=== PATIENT | male | born 1965 | race Caucasian/White ===

== ENCOUNTER 2017-10-17 13:18 | Emergency (ER) | payer OTHER ==
[2017-10-17 14:26] VITALS: TEMP 98
[2017-10-17] MEDS ORDERED: hydrALAZINE HCL 20 MG/ML 1 ML VIAL IVP STA ×2 (14:40→16:04)
--- NOTE | 2017-10-17 14:44 | ED ---
General Adult HPI - General Chief complaint: Extremity Problem,Nontraumatic Stated complaint: leg pain Time Seen by Provider: 10/17/17 13:25 Source: patient, RN notes reviewed Mode of arrival: ambulatory Limitations: no limitations - History of Present Illness Initial comments: This a 51-year-old male presents emergency Department complaining that his left second toe has been tingling for about a month. Patient states thought maybe he just slept on it wrong so he didn't come in right away. Patient denies any other symptoms at this time per patient denies any swelling patient denies any trauma patient denies any discoloration. Patient states he does not have a physician does not know if he has diabetes high cholesterol or high blood pressure. Patient's blood pressure was elevated emergency department when I told him that he stated that more recently he has been no she's been having more headaches. Patient does deny any current headache patient denies any weakness that is focal. Patient denies any recent fever chills. Patient denies any chest pain difficulty breathing or shortness of breath lately. Patient is a smoker of cigars daily. - Related Data Previous Rx's Medication Instructions Recorded Lisinopril [Zestril] 10 mg PO DAILY #10 tab 10/17/17 Allergies Allergy/AdvReac Type Severity Reaction Status Date / Time No Known Allergies Allergy Verified 10/17/17 13:29 Review of Systems ROS Statement: Those systems with pertinent positive or pertinent negative responses have been documented in the HPI. ROS Other: All systems not noted in ROS Statement are negative. Past Medical History Past Medical History: No Reported History History of Any Multi-Drug Resistant Organisms: None Reported Past Surgical History: No Surgical Hx Reported Past Psychological History: No Psychological Hx Reported Smoking Status: Current some day smoker Past Alcohol Use History: None Reported Past Drug Use History: None Reported General Exam - General Exam Comments Initial Comments: GENERAL: Patient is well-developed and well-nourished. Patient is nontoxic and well- hydrated and is in no acute distress. ENT: Neck is soft and supple. No significant lymphadenopathy is noted. Oropharynx is clear. Moist mucous membranes. Neck has full range of motion without eliciting any pain. EYES: The sclera were anicteric and conjunctiva were pink and moist. Extraocular movements were intact and pupils were equal round and reactive to light. Eyelids were unremarkable. PULMONARY: Unlabored respirations. Good breath sounds bilaterally. No audible rales rhonchi or wheezing was noted. CARDIOVASCULAR: There is a regular rate and rhythm without any murmurs gallops or rubs. ABDOMEN: Soft and nontender with normal bowel sounds. SKIN: Skin is clear with no lesions or rashes and otherwise unremarkable. NEUROLOGIC: Patient is alert and oriented x3. Cranial nerves II through XII are grossly intact. Motor and sensory are also intact. Normal speech, volume and content. Symmetrical smile. MUSCULOSKELETAL: Normal extremities with adequate strength and full range of motion. Patient has bilateral dorsalis pedis pulses as well as posterior tibial pulses LYMPHATICS: No significant lymphadenopathy is noted PSYCHIATRIC: Normal psychiatric evaluation. Limitations: no limitations Course Vital Signs 10/17/17 10/17/17 10/17/17 13:25 14:24 15:00 Temperature 97.4 F L 98.0 F Pulse Rate 103 H 98 81 Respiratory 18 16 18 Rate Blood Pressure 223/105 194/107 178/95 O2 Sat by Pulse 97 99 Oximetry Medical Decision Making - Medical Decision Making EKG shows normal sinus rhythm at 95 bpm [place] interval is 142 QRS is 92 QT interval 370 QTC is 464. Patient's EKG shows no ST segment elevation or depression or T wave abnormalities are noted. Chest x-ray shows no acute abnormality. Patient blood pressure was mildly elevated so I gave the patient some hydralazine. - Lab Data Result diagrams: 10/17/17 14:35 10/17/17 14:35 Lab Results 10/17/17 10/17/17 10/17/17 Range/Units 14:35 14:35 14:35 WBC 5.2 (3.8-10.6) k/uL RBC 5.65 (4.30-5.90) m/uL Hgb 16.5 (13.0-17.5) gm/dL Hct 47.7 (39.0-53.0) % MCV 84.4 (80.0-100.0) fL MCH 29.2 (25.0-35.0) pg MCHC 34.6 (31.0-37.0) g/dL RDW 12.9 (11.5-15.5) % Plt Count 186 (150-450) k/uL Neutrophils % 66 % Lymphocytes % 25 % Monocytes % 5 % Eosinophils % 2 % Basophils % 1 % Neutrophils # 3.5 (1.3-7.7) k/uL Lymphocytes # 1.3 (1.0-4.8) k/uL Monocytes # 0.3 (0-1.0) k/uL Eosinophils # 0.1 (0-0.7) k/uL Basophils # 0.0 (0-0.2) k/uL PT (9.0-12.0) sec INR (<1.2) APTT (22.0-30.0) sec Sodium 138 (137-145) mmol/L Potassium 4.4 (3.5-5.1) mmol/L Chloride 102 (98-107) mmol/L Carbon Dioxide 25 (22-30) mmol/L Anion Gap 11 mmol/L BUN 15 (9-20) mg/dL Creatinine 0.60 L (0.66-1.25) mg/dL Est GFR (CKD-EPI)AfAm >90 (>60 ml/min/1.73 sqM) Est GFR (CKD-EPI)NonAf >90 (>60 ml/min/1.73 sqM) Glucose 291 H (74-99) mg/dL Calcium 9.3 (8.4-10.2) mg/dL Magnesium 1.7 (1.6-2.3) mg/dL Total Bilirubin 1.2 (0.2-1.3) mg/dL AST 26 (17-59) U/L ALT 29 (21-72) U/L Alkaline Phosphatase 135 H (38-126) U/L Total Creatine Kinase 102 (55-170) U/L CK-MB (CK-2) 1.0 (0.0-2.4) ng/mL CK-MB (CK-2) Rel Index 1.0 Troponin I <0.012 (0.000-0.034) ng/mL Total Protein 7.7 (6.3-8.2) g/dL Albumin 4.3 (3.5-5.0) g/dL 10/17/17 Range/Units 14:35 WBC (3.8-10.6) k/uL RBC (4.30-5.90) m/uL Hgb (13.0-17.5) gm/dL Hct (39.0-53.0) % MCV (80.0-100.0) fL MCH (25.0-35.0) pg MCHC (31.0-37.0) g/dL RDW (11.5-15.5) % Plt Count (150-450) k/uL Neutrophils % % Lymphocytes % % Monocytes % % Eosinophils % % Basophils % % Neutrophils # (1.3-7.7) k/uL Lymphocytes # (1.0-4.8) k/uL Monocytes # (0-1.0) k/uL Eosinophils # (0-0.7) k/uL Basophils # (0-0.2) k/uL PT 9.7 (9.0-12.0) sec INR 1.0 (<1.2) APTT 21.7 L (22.0-30.0) sec Sodium (137-145) mmol/L Potassium (3.5-5.1) mmol/L Chloride (98-107) mmol/L Carbon Dioxide (22-30) mmol/L Anion Gap mmol/L BUN (9-20) mg/dL Creatinine (0.66-1.25) mg/dL Est GFR (CKD-EPI)AfAm (>60 ml/min/1.73 sqM) Est GFR (CKD-EPI)NonAf (>60 ml/min/1.73 sqM) Glucose (74-99) mg/dL Calcium (8.4-10.2) mg/dL Magnesium (1.6-2.3) mg/dL Total Bilirubin (0.2-1.3) mg/dL AST (17-59) U/L ALT (21-72) U/L Alkaline Phosphatase (38-126) U/L Total Creatine Kinase (55-170) U/L CK-MB (CK-2) (0.0-2.4) ng/mL CK-MB (CK-2) Rel Index Troponin I (0.000-0.034) ng/mL Total Protein (6.3-8.2) g/dL Albumin (3.5-5.0) g/dL Disposition Clinical Impression: Hypertension, Paresthesia, Hyperglycemia Disposition: HOME SELF-CARE Condition: Good Instructions: Hypertension (ED), Paresthesia (ED), Hyperglycemia, Non-Diabetic (ED) Prescriptions: Lisinopril [Zestril] 10 mg PO DAILY #10 tab Referrals: None,Stated [Primary Care Provider] - 1-2 days Time of Disposition: 16:02
[2017-10-17 15:13] LABS: Basophils % (A) 1 %; Eosinophils # (A) 0.1 k/uL (0-0.7); Eosinophils % (A) 2 %; HCT 47.7 % (39.0-53.0); HGB 16.5 gm/dL (13.0-17.5); Lymphocytes # (A) 1.3 k/uL (1.0-4.8); Lymphocytes % (A) 25 %; MCH 29.2 pg (25.0-35.0); MCHC 34.6 g/dL (31.0-37.0); MCV 84.4 fL (80.0-100.0); Mean Platelet Volume 7.3; Monocytes # (A) 0.3 k/uL (0-1.0); Monocytes % (A) 5 %; Neutrophils # (A) 3.5 k/uL (1.3-7.7); Neutrophils % (A) 66 %; Platelet Count 186 k/uL (150-450); RBC 5.65 m/uL (4.30-5.90); RDW 12.9 % (11.5-15.5); WBC 5.2 k/uL (3.8-10.6)
[2017-10-17 15:21] LABS: Prothrombin Time 9.7 sec (9.0-12.0)
[2017-10-17 15:24] VITALS: RESP 18
[2017-10-17 15:30] LABS: ALT 29 U/L (21-72); AST 26 U/L (17-59); Albumin 4.3 g/dL (3.5-5.0); Alkaline Phosphatase 135 U/L (38-126); Anion Gap 11 mmol/L; Blood Urea Nitrogen 15 mg/dL (9-20); Calcium 9.3 mg/dL (8.4-10.2); Carbon Dioxide 25 mmol/L (22-30); Chloride 102 mmol/L (98-107); Glucose 291 mg/dL (74-99); Magnesium 1.7 mg/dL (1.6-2.3); Partial Thromboplastin Time 21.7 sec (22.0-30.0); Potassium 4.4 mmol/L (3.5-5.1); Sodium 138 mmol/L (137-145); Total Bilirubin 1.2 mg/dL (0.2-1.3); Total Protein 7.7 g/dL (6.3-8.2)
[2017-10-17 15:33] LABS: Creatine Kinase 102 U/L (55-170)
[2017-10-17 15:46] LABS: Troponin I <0.012 ng/mL (0.000-0.034)
--- NOTE | 2017-10-17 15:47 | XR ---
EXAMINATION TYPE: XR chest 2V DATE OF EXAM: 10/17/2017 COMPARISON: None INDICATION: Left foot numbness x2 weeks. Chest pain. TECHNIQUE: Frontal and lateral views of the chest are obtained. FINDINGS: The heart size is normal. The pulmonary vasculature is normal. The lungs are clear. IMPRESSION: 1. No acute pulmonary process.
[2017-10-17 16:23] VITALS: BP 158/85; PULSE 87
== END 2017-10-17 16:32 | disposition home or self-care (01) ==
LOC: EC 13:18
DX: I10 Essential (primary) hypertension (principal); R20.2 Paresthesia of skin; R73.9 Hyperglycemia, unspecified; M79.675 Pain in left toe(s); F17.210 Nicotine dependence, cigarettes, uncomplicated; Z53.8 Procedure and treatment not carried out for other reasons
CPT/HCPCS: 36415; 93005; 80053; 82550; 82553; 83735; 84484; 85025; 85610; 85730; 71046; 99284; 96374; J0360

== ENCOUNTER → 2018-12-10 | Outpatient (CLI) | payer BC ==
[2018-12-10 16:00] LABS: HCT 38.7 % (39.0-53.0); HGB 12.8 gm/dL (13.0-17.5); MCH 30.1 pg (25.0-35.0); MCHC 33.1 g/dL (31.0-37.0); Mean Platelet Volume 6.5; Platelet Count 212 k/uL (150-450); RBC 4.25 m/uL (4.30-5.90); RDW 13.2 % (11.5-15.5); WBC 6.2 k/uL (3.8-10.6)
[2018-12-10 16:10] LABS: Potassium 4.4 mmol/L (3.5-5.1)
== END ==
LOC: LABPAT 15:19
PROVIDERS: ATTEND Internal Medicine Interventional Cardiology
DX: Z01.812 Encounter for preprocedural laboratory examination (principal); R94.39 Abnormal result of other cardiovascular function study
CPT/HCPCS: 36415; 80051; 82565; 84520; 85027

== ENCOUNTER → 2018-12-12 | Day surgery (SDC) | payer BC ==
[2018-12-10 10:08] VITALS: BMI 38.0
[~2018-12-12] MED LIST: ALPRAZolam 0.25 MG TAB PO PRN; ALPRAZolam 0.5 MG TAB PO PRN; ASPIRIN 325 MG TAB PO STA; ASPIRIN 81 MG PO SCH; ATORVASTATIN 80 MG TAB PO STA; HEPARIN SODIUM 1,000 UN/ML (10ML VL) IV ONE; HEPARIN SODIUM 1,000 UN/ML (10ML VL) ONE; IOPAMIDOL-370 100ML BTL INJ ONE; LIDOCAINE 1% INJ 10MG/ML (20 ML MDV) ONE; LIDOCAINE 1% INJ 10MG/ML (20 ML MDV) SQ ONE; LISINOPRIL 10 MG TAB PO SCH; METOPROLOL TARTRATE 25 MG TAB PO SCH; MIDAZOLAM (PF) 2 MG/2 ML VIAL IV ONE; MULTIVITAMINS, THERA 1 EACH TAB PO SCH; NITROGLYCERIN SL TABS 0.4 MG TAB SUBLINGUAL PRN; PIOGLITAZONE 30 MG TAB PO SCH; RX INFO: IV CONTRAST WAS GIVEN 1 EACH MISC MISCELLANE PRN; SODIUM CHLORIDE 0.9% 1,000 ML IV ONE; SODIUM CHLORIDE 0.9% 1,000 ML IV SCH; SODIUM CHLORIDE 0.9% 1,000 ML in EMPTY BAG 1 BAG IV ONE; VERAPAMIL 2.5 MG/ML 2 ML AMP ONE; VERAPAMIL SYRINGE (5 MG/10 ML) INTRAARTER ONE; amLODIPine 10 MG TAB PO SCH; fentaNYL (PF) 50 MCG/ML 2 ML AMP IV ONE; fentaNYL (PF) 50 MCG/ML 2 ML AMP ONE
[2018-12-12 07:16] VITALS: RESP 18; TEMP 98.7
[2018-12-12 07:25] LABS: Glucose,Whole Blood 113 mg/dL (75-99)
--- NOTE | 2018-12-12 09:45 | CC ---
CARDIAC CATHETERIZATION REPORT Mr. Holloway is a 53-year-old male with known history of hypertension, hyperlipidemia, diabetes mellitus, prior history of smoking, history of cerebrovascular accident, who recently underwent a myocardial perfusion imaging that revealed evidence of inducible ischemia involving the inferoapical wall. In view of that, recommendation made regarding cardiac catheterization. The procedure, as well as the risks and complications were discussed with the patient who is in full understanding and agreement. PROCEDURE: Patient was brought to the labor specialist in a fasting semi-sedated state after receiving fentanyl and Benadryl and achieving moderate conscious sedated state. Using Xylocaine anesthesia and Seldinger technique, a 6-[place]ine[place] sheath was introduced in the right radial artery. Selective right and left coronary angiography were performed using 5- [place] 3.5 bend right and left Iraj catheter. Multiple views of the coronary artery including hemiaxial views were obtained following that 5-[place] tight pigtail catheter was introduced in the left ventricle and a 30 degree METZGER view of the left ventricle was obtained. Following that, catheter and sheaths were removed. Hemostasis was obtained with deployment of a TR band. There was no immediate complication. Patient is returned to his room in stable condition. FINDINGS: LEFT MAIN: This is a large-sized vessel, bifurcating into left circumflex, left anterior descending artery, left main coronary artery has no evidence of obstructive coronary disease. LEFT ANTERIOR DESCENDING ARTERY: This vessel tapers down in the mid, giving rise to a large diagonal branch proximally. The left anterior descending artery as well as branches have no evidence of obstructive coronary artery disease. LEFT CIRCUMFLEX: This is a nondominant large vessel, giving a giving rise to another small obtuse marginal branch. The left circumflex as well as branches have no evidence of obstructive coronary disease. RIGHT CORONARY ARTERY: This is a large dominant vessel, bifurcating distally PDA and posterolateral segment and branches. The PDA reaches toward the inferoapical wall. The right coronary artery and its branches have no evidence of obstructive disease. LEFT VENTRICULOGRAM: Left ventriculogram is performed 30 degree METZGER view and revealed normal left ventricular size and systolic function. Ejection fraction 60%. There was no significant mitral regurgitation. HEMODYNAMICS: There was no gradient across the aortic valve. The ventricular end- diastolic pressure was 20 mmHg. CONCLUSION: 1. Normal coronary arteries. 2. Normal left ventricular size and systolic function. RECOMMENDATION: In view of finding anatomy, I recommend continue medical therapy with aggressive risk modifications being initiated. Those findings and recommendation were discussed with the patient and his family and they are in full understanding and agreement. Duration of procedure is 23 minutes. MMTERESAL / JEFFREYN: [id number] /
[2018-12-12 13:08] VITALS: BP 150/73; PULSE 72
== END | disposition home or self-care (01) ==
LOC: CATHCVL 06:09
PROVIDERS: ATTEND Internal Medicine Interventional Cardiology
DX: R94.39 Abnormal result of other cardiovascular function study (principal); I10 Essential (primary) hypertension; E78.2 Mixed hyperlipidemia; E11.9 Type 2 diabetes mellitus without complications; Z86.73 Personal history of transient ischemic attack (TIA), and cerebral infarction without residual deficits; Z87.891 Personal history of nicotine dependence; Z79.84 Long term (current) use of oral hypoglycemic drugs; Z79.82 Long term (current) use of aspirin; Z79.899 Other long term (current) drug therapy
CPT/HCPCS: 93458; C1894; C1769; J2001; J3010; J1644; Q9967; J2250

== ENCOUNTER 2018-12-23 08:53 | Emergency (ER) | payer BC ==
[2018-12-23 08:59] VITALS: TEMP 97.7
[2018-12-23] MEDS ORDERED: SODIUM CHLORIDE 0.9% 500 ML 500 ML IV STA (09:14)
--- NOTE | 2018-12-23 09:18 | ED ---
General Adult HPI - General Chief complaint: Neuro Symptoms/Deficit Stated complaint: stroke symptoms Time Seen by Provider: 12/23/18 09:00 Source: patient, RN notes reviewed Mode of arrival: ambulatory Limitations: no limitations - History of Present Illness Initial comments: This a 53-year-old male who presents emergency Department complaining that he has tingling in his toes of both of his feet. Patient states he has never had that it is right foot but today he does. Patient states the sensation is similar to that when his foot fall sleep. Patient states the left foot has always had a little bit of that but is also worse today. Patient denies any weakness. Patient states he felt a little unstable when he walks because of this tingling in both feet. Patient denies any upper extremity symptoms. Patient denies any facial droop or slurred speech. Patient denies headache. Patient denies any lightheadedness or dizziness. Patient denies any recent fever chills or cough per patient denies chest pain difficult breathing or shortness of breath. Patient does complain of a little right calf tenderness. - Related Data Home Medications Medication Instructions Recorded Confirmed Aspirin [Adult Low Dose Aspirin EC] 81 mg PO DAILY 12/10/18 12/23/18 Metoprolol Tartrate [Lopressor] 25 mg PO DAILY 12/10/18 12/23/18 Multivitamins, Thera [Multivitamin 1 tab PO DAILY 12/10/18 12/23/18 (formulary)] Pioglitazone [Actos] 30 mg PO DAILY 12/10/18 12/23/18 amLODIPine [Norvasc] 10 mg PO DAILY 12/10/18 12/23/18 metFORMIN HCL [Glucophage] 1,000 mg PO BID-W/MEALS 12/10/18 12/23/18 Atorvastatin [Lipitor] 40 mg PO HS 12/23/18 12/23/18 Lisinopril [Zestril] 20 mg PO DAILY 12/23/18 12/23/18 Allergies Allergy/AdvReac Type Severity Reaction Status Date / Time atorvastatin AdvReac Unknown stomach Verified 12/23/18 11:38 pain Review of Systems ROS Statement: Those systems with pertinent positive or pertinent negative responses have been documented in the HPI. ROS Other: All systems not noted in ROS Statement are negative. 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 History of Any Multi-Drug Resistant Organisms: None Reported Past Surgical History: Heart Catheterization Past Anesthesia/Blood Transfusion Reactions: Motion Sickness Additional Past Anesthesia/Blood Transfusion Reaction / Comment(s): HAS NEVER RECEIVED ANESTHESIA Past Psychological History: No Psychological Hx Reported Smoking Status: Former smoker Past Alcohol Use History: None Reported Past Drug Use History: None Reported - Past Family History Mother Family Medical History: No Reported History General Exam - General Exam Comments Initial Comments: GENERAL: Patient is well-developed and well-nourished. Patient is nontoxic and well- hydrated and is in mild distress. ENT: Neck is soft and supple. No significant lymphadenopathy is noted. Oropharynx is clear. Moist mucous membranes. Neck has full range of motion without eliciting any pain. EYES: The sclera were anicteric and conjunctiva were pink and moist. Extraocular movements were intact and pupils were equal round and reactive to light. Eyelids were unremarkable. PULMONARY: Unlabored respirations. Good breath sounds bilaterally. No audible rales rhonchi or wheezing was noted. CARDIOVASCULAR: There is a regular rate and rhythm without any murmurs gallops or rubs. Femoral pulses are equal bilaterally. Patient has DP pulses bilaterally ABDOMEN: Soft and nontender with normal bowel sounds. SKIN: Skin is clear with no lesions or rashes and otherwise unremarkable. NEUROLOGIC: Patient is alert and oriented x3. Cranial nerves II through XII are grossly intact. Motor and sensory are also intact. Normal speech, volume and content. Symmetrical smile. Patient is able to do heel to lion bilaterally without problem MUSCULOSKELETAL: Normal extremities with adequate strength and full range of motion. No lower extremity swelling or edema. Right calf is mildly tender LYMPHATICS: No significant lymphadenopathy is noted PSYCHIATRIC: Normal psychiatric evaluation. Limitations: no limitations Course Vital Signs 12/23/18 12/23/18 12/23/18 08:56 09:18 10:20 Temperature 97.7 F Pulse Rate 79 82 Respiratory 18 22 18 Rate Blood Pressure 193/98 177/83 164/90 O2 Sat by Pulse 99 98 98 Oximetry 12/23/18 12/23/18 12/23/18 10:40 11:00 11:20 Temperature Pulse Rate 75 69 64 Respiratory 18 18 20 Rate Blood Pressure 160/74 165/79 170/90 O2 Sat by Pulse 98 97 98 Oximetry 12/23/18 12/23/18 11:40 12:00 Temperature Pulse Rate 76 68 Respiratory 20 20 Rate Blood Pressure 146/76 165/81 O2 Sat by Pulse 98 98 Oximetry Medical Decision Making - Medical Decision Making EKG shows a normal sinus rhythm at 72 bpm [place] interval is 138 QRSs 86 QT interval 390 QTC is 427. Patient's EKG shows no ST segment elevation or depression or T wave abnormalities are noted. Ultrasound shows no DVT. CT shows no acute abnormalities. Chest x-ray shows no acute abnormality. Patient states the symptoms are much i mproved he is able to ambulate without problem. Patient still has tingling to both feet at the toes only but states it's much improved. - Lab Data Result diagrams: 12/23/18 09:48 12/23/18 09:48 Lab Results 12/23/18 12/23/18 12/23/18 Range/Units 09:42 09:48 09:48 WBC 6.8 (3.8-10.6) k/uL RBC 4.60 (4.30-5.90) m/uL Hgb 13.4 (13.0-17.5) gm/dL Hct 41.1 (39.0-53.0) % MCV 89.4 (80.0-100.0) fL MCH 29.1 (25.0-35.0) pg MCHC 32.6 (31.0-37.0) g/dL RDW 13.2 (11.5-15.5) % Plt Count 228 (150-450) k/uL Neutrophils % 67 % Lymphocytes % 23 % Monocytes % 4 % Eosinophils % 3 % Basophils % 1 % Neutrophils # 4.5 (1.3-7.7) k/uL Lymphocytes # 1.6 (1.0-4.8) k/uL Monocytes # 0.3 (0-1.0) k/uL Eosinophils # 0.2 (0-0.7) k/uL Basophils # 0.0 (0-0.2) k/uL PT (9.0-12.0) sec INR (<1.2) APTT (22.0-30.0) sec Sodium 140 (137-145) mmol/L Potassium 4.8 (3.5-5.1) mmol/L Chloride 109 H (98-107) mmol/L Carbon Dioxide 25 (22-30) mmol/L Anion Gap 6 mmol/L BUN 21 H (9-20) mg/dL Creatinine 0.96 (0.66-1.25) mg/dL Est GFR (CKD-EPI)AfAm >90 (>60 ml/min/1.73 sqM) Est GFR (CKD-EPI)NonAf 89 (>60 ml/min/1.73 sqM) Glucose 105 H (74-99) mg/dL POC Glucose (mg/dL) 125 H (75-99) mg/dL POC Glu Extension Agent ID Bridget Almodovar Calcium 9.7 (8.4-10.2) mg/dL Total Bilirubin 0.9 (0.2-1.3) mg/dL AST 19 (17-59) U/L ALT 12 L (21-72) U/L Alkaline Phosphatase 95 (38-126) U/L Troponin I (0.000-0.034) ng/mL Total Protein 7.6 (6.3-8.2) g/dL Albumin 4.4 (3.5-5.0) g/dL 12/23/18 12/23/18 Range/Units 09:48 09:48 WBC (3.8-10.6) k/uL RBC (4.30-5.90) m/uL Hgb (13.0-17.5) gm/dL Hct (39.0-53.0) % MCV (80.0-100.0) fL MCH (25.0-35.0) pg MCHC (31.0-37.0) g/dL RDW (11.5-15.5) % Plt Count (150-450) k/uL Neutrophils % % Lymphocytes % % Monocytes % % Eosinophils % % Basophils % % Neutrophils # (1.3-7.7) k/uL Lymphocytes # (1.0-4.8) k/uL Monocytes # (0-1.0) k/uL Eosinophils # (0-0.7) k/uL Basophils # (0-0.2) k/uL PT 9.8 (9.0-12.0) sec INR 0.9 (<1.2) APTT 24.2 (22.0-30.0) sec Sodium (137-145) mmol/L Potassium (3.5-5.1) mmol/L Chloride (98-107) mmol/L Carbon Dioxide (22-30) mmol/L Anion Gap mmol/L BUN (9-20) mg/dL Creatinine (0.66-1.25) mg/dL Est GFR (CKD-EPI)AfAm (>60 ml/min/1.73 sqM) Est GFR (CKD-EPI)NonAf (>60 ml/min/1.73 sqM) Glucose (74-99) mg/dL POC Glucose (mg/dL) (75-99) mg/dL POC Glu Extension Agent ID Calcium (8.4-10.2) mg/dL Total Bilirubin (0.2-1.3) mg/dL AST (17-59) U/L ALT (21-72) U/L Alkaline Phosphatase (38-126) U/L Troponin I <0.012 (0.000-0.034) ng/mL Total Protein (6.3-8.2) g/dL Albumin (3.5-5.0) g/dL Disposition Clinical Impression: Neuropathy Disposition: HOME SELF-CARE Condition: Good Instructions (If sedation given, give patient instructions): Peripheral Neuropathy (ED) Is patient prescribed a controlled substance at d/c from ED?: No Referrals: Alfonso Mcgarry MD [Primary Care Provider] - 1-2 days Time of Disposition: 12:14
[2018-12-23 09:43] LABS: Glucose,Whole Blood 125 mg/dL (75-99)
[2018-12-23 10:08] LABS: Basophils % (A) 1 %; Eosinophils # (A) 0.2 k/uL (0-0.7); Eosinophils % (A) 3 %; HCT 41.1 % (39.0-53.0); HGB 13.4 gm/dL (13.0-17.5); Lymphocytes # (A) 1.6 k/uL (1.0-4.8); Lymphocytes % (A) 23 %; MCH 29.1 pg (25.0-35.0); MCHC 32.6 g/dL (31.0-37.0); MCV 89.4 fL (80.0-100.0); Mean Platelet Volume 6.6; Monocytes # (A) 0.3 k/uL (0-1.0); Monocytes % (A) 4 %; Neutrophils # (A) 4.5 k/uL (1.3-7.7); Neutrophils % (A) 67 %; Platelet Count 228 k/uL (150-450); RDW 13.2 % (11.5-15.5); WBC 6.8 k/uL (3.8-10.6)
[2018-12-23 10:19] LABS: INR 0.9 (<1.2); Partial Thromboplastin Time 24.2 sec (22.0-30.0); Prothrombin Time 9.8 sec (9.0-12.0)
--- NOTE | 2018-12-23 10:19 | CT ---
EXAMINATION TYPE: CT brain wo con DATE OF EXAM: 12/23/2018 COMPARISON: None INDICATION: Neuro deficits DLP: 1071.4 mGycm, Automated exposure control for dose reduction was used. CONTRAST: None CT of the brain is performed utilizing 3 mm thick sections through the posterior fossa and 3 mm thick sections through the remaining calvarium. Study is performed within 24 hours of arrival to the hosp [facility]. No abnormal hyperdensity is present to suggest an acute intracranial hemorrhage. No mass lesion is evident. No acute infarcts are evident. Ventricles and sulci are appropriate for the patient age. There are retention cysts within the maxillary sinuses. Remaining paranasal sinuses and mastoid air c ells are clear. IMPRESSIONS: 1. No acute intracranial process. 2. If additional evaluation is required, consider MRI.
--- NOTE | 2018-12-23 10:19 | XR ---
EXAMINATION TYPE: XR chest 2V DATE OF EXAM: 12/23/2018 COMPARISON: 10/17/2017 INDICATION: Altered mental status cramping and numbness right leg TECHNIQUE: Frontal and lateral views of the chest are obtained. FINDINGS: The heart size is normal. The pulmonary vasculature is normal. The lungs are clear. IMPRESSION: 1. No acute pulmonary process.
[2018-12-23 10:39] LABS: ALT 12 U/L (21-72); AST 19 U/L (17-59); Albumin 4.4 g/dL (3.5-5.0); Alkaline Phosphatase 95 U/L (38-126); Anion Gap 6 mmol/L; Blood Urea Nitrogen 21 mg/dL (9-20); Calcium 9.7 mg/dL (8.4-10.2); Carbon Dioxide 25 mmol/L (22-30); Chloride 109 mmol/L (98-107); Glucose 105 mg/dL (74-99); Potassium 4.8 mmol/L (3.5-5.1); Sodium 140 mmol/L (137-145); Total Bilirubin 0.9 mg/dL (0.2-1.3); Total Protein 7.6 g/dL (6.3-8.2)
--- NOTE | 2018-12-23 11:36 | US ---
EXAMINATION TYPE: US venous doppler duplex LE RT DATE OF EXAM: 12/23/2018 11:08 AM COMPARISON: NONE CLINICAL HISTORY: Pain. Pain right leg x 1 day. Numbness in toes. Pt not on blood thinners. SIDE PERFORMED: Right TECHNIQUE: The lower extremity deep venous system is examined utilizing real time linear array sonog sabi with graded compression, doppler sonography and color-flow sonography. VESSELS IMAGED: External Iliac Vein (EIV) Common Femoral Vein Deep Femoral Vein Greater Saphenous Vein * Femoral Vein Popliteal Vein Small Saphenous Vein * Proximal Calf Veins (* superficial vessels) Right Leg: No evidence of DVT in the right lower extremity. Patient could not tolerate probe pressur e in the distal femoral vein for compression. Extra images taken to show color flow. IMPRESSION: 1. Right lower extremity venous ultrasound negative for deep venous thrombosis.
[2018-12-23 11:39] VITALS: RESP 20
[2018-12-23 12:10] VITALS: BP 165/81; PULSE 68
== END 2018-12-23 12:30 | disposition home or self-care (01) ==
LOC: EC 08:53
DX: E11.40 Type 2 diabetes mellitus with diabetic neuropathy, unspecified (principal); Z86.73 Personal history of transient ischemic attack (TIA), and cerebral infarction without residual deficits; Z87.891 Personal history of nicotine dependence; Z79.82 Long term (current) use of aspirin; Z79.84 Long term (current) use of oral hypoglycemic drugs; Z79.899 Other long term (current) drug therapy; Z88.8 Allergy status to other drugs, medicaments and biological substances; Z95.818 Presence of other cardiac implants and grafts
CPT/HCPCS: 36415; 70450; 71046; 80053; 84484; 85025; 85610; 85730; 93005; 96360; 99284

== ENCOUNTER → 2019-01-06 | Outpatient (CLI) | payer BC ==
[2019-01-06 18:12] LABS: Hemoglobin A1C 5.6 % (4.0-6.0)
== END | disposition home or self-care (01) ==
LOC: LABWHC1 10:24
PROVIDERS: ATTEND Internal Medicine
DX: E11.9 Type 2 diabetes mellitus without complications (principal)
CPT/HCPCS: 36415; 83036

== ENCOUNTER → 2022-04-27 | Outpatient (CLI) | payer OTHER ==
--- NOTE | 2022-04-27 11:22 | XR ---
EXAMINATION TYPE: XR chest 2V DATE OF EXAM: 04/27/2022 10:56 AM COMPARISON: Chest radiographs from 12/23/2018 TECHNIQUE: XR chest 2V Frontal and lateral views of the chest. CLINICAL INDICATION:Male, 56 years old with history of DYSPNEA, UNSPECIFIED; FINDINGS: Lungs/Pleura: There is no evidence of pleural effusion, focal consolidation, or pneumothorax. Pulmonary vascularity: Unremarkable. Heart/mediastinum: Cardiomediastinal silhouette is unremarkable. Musculoskeletal: No acute osseous pathology. IMPRESSION: No acute cardiopulmonary disease/process.
[2022-04-27 14:41] LABS: ALT <5 U/L (10-49); AST 15 U/L (14-35); African American GFR (CKD) 85.3 (60.0-200.0); Albumin 3.8 g/dL (3.8-4.9); Albumin/Globulin Ratio 1.03 (1.60-3.17); Alkaline Phosphatase 156 U/L (41-126); BUN/Creat Ratio 16.91 Ratio (12.00-20.00); Blood Urea Nitrogen 18.6 mg/dL (9.0-27.0); Carbon Dioxide 34.2 mmol/L (20.0-27.5); Chloride 96 mmol/L (96-109); Globulin 3.7 g/dL (1.6-3.3); Glucose 281 mg/dL (70-110); Non-African American GFR(CKD) 73.6 (60.0-200.0); Potassium 5.2 mmol/L (3.5-5.5); Sodium 139 mmol/L (135-145); Total Protein 7.5 g/dL (6.2-8.2)
[2022-04-27 14:42] LABS: Chol/HDL Ratio 4.59 Ratio; LDL Cholesterol,Calculated 85.6 mg/dL (0.0-131.0)
== END | disposition home or self-care (01) ==
LOC: RADXRMAIN 10:30
PROVIDERS: ATTEND Internal Medicine
DX: E11.9 Type 2 diabetes mellitus without complications (principal); I10 Essential (primary) hypertension; E78.5 Hyperlipidemia, unspecified; R06.00 Dyspnea, unspecified; G47.00 Insomnia, unspecified
CPT/HCPCS: 71046; 80053; 80061; 83036; 83880

== ENCOUNTER 2022-06-24 07:29 | Inpatient (IN) | payer MEDICARE, OTHER ==
[2022-06-24] MEDS ORDERED: FUROSEMIDE 10 MG/ML 4 ML VIAL IV STA (07:44)
[2022-06-24] MEDS ORDERED: NITROGLYCERIN OINT 1 INCH/GM PACKET TOPICAL STA (07:45)
--- NOTE | 2022-06-24 07:51 | ED ---
General Adult HPI - General Chief complaint: Shortness of Breath Stated complaint: sob Time Seen by Provider: 06/24/22 07:35 Source: patient, RN notes reviewed, old records reviewed Mode of arrival: wheelchair Limitations: no limitations - History of Present Illness Initial comments: This is a 56-year-old male who presents emergency Department with any shortness of breath per patient states he has a history of smoking quit about a month ago per patient states she also said stroke in the past. Patient states he was recently told he has has congestive heart failure. Patient's on 5 L of oxygen 24 hours a day. Patient also has diabetes. Patient states she's been very compliant with his medications. Patient states over the last 2 weeks since he left the hospital his swelling Reece is worse in his difficulty breathing is gotten worse. Patient states his difficulty breathing is much worse with exertion. Patient denies any chest pain. Patient denies any headache patient denies numbness weakness. Patient denies any lightheadedness or dizziness. Patient denies any abdominal pain. Patient denies nausea vomiting diarrhea. Patient states swelling is legs have gotten considerably worse. - Related Data Home Medications Medication Instructions Recorded Confirmed Aspirin [Adult Low Dose Aspirin EC] 81 mg PO DAILY 12/10/18 12/23/18 Metoprolol Tartrate [Lopressor] 25 mg PO DAILY 12/10/18 12/23/18 Multivitamins, Thera [Multivitamin 1 tab PO DAILY 12/10/18 12/23/18 (formulary)] Pioglitazone [Actos] 30 mg PO DAILY 12/10/18 12/23/18 amLODIPine [Norvasc] 10 mg PO DAILY 12/10/18 12/23/18 metFORMIN HCL [Glucophage] 1,000 mg PO BID-W/MEALS 12/10/18 12/23/18 Atorvastatin [Lipitor] 40 mg PO HS 12/23/18 12/23/18 lisinopriL [Zestril] 20 mg PO DAILY 12/23/18 12/23/18 Allergies Allergy/AdvReac Type Severity Reaction Status Date / Time atorvastatin AdvReac Unknown stomach Verified 12/23/18 11:38 pain Review of Systems ROS Statement: Those systems with pertinent positive or pertinent negative responses have been documented in the HPI. ROS Other: All systems not noted in ROS Statement are negative. 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 History of Any Multi-Drug Resistant Organisms: None Reported Past Surgical History: Heart Catheterization Past Anesthesia/Blood Transfusion Reactions: Motion Sickness Additional Past Anesthesia/Blood Transfusion Reaction / Comment(s): HAS NEVER RECEIVED ANESTHESIA Past Psychological History: No Psychological Hx Reported Smoking Status: Former smoker Past Alcohol Use History: None Reported Past Drug Use History: None Reported - Past Family History Mother Family Medical History: No Reported History General Exam - General Exam Comments Initial Comments: GENERAL: Patient is well-developed and well-nourished. Patient is nontoxic and well- hydrated and is in mild distress. Patient is on 5 L of oxygen and oxygen 88%. ENT: Neck is soft and supple. No significant lymphadenopathy is noted. Oropharynx i s clear. Moist mucous membranes. Neck has full range of motion without eliciting any pain. EYES: The sclera were anicteric and conjunctiva were pink and moist. Extraocular movements were intact and pupils were equal round and reactive to light. Eyelids were unremarkable. PULMONARY: Patient's breath sounds are diminished in the bases and there is some crackles bilateral CARDIOVASCULAR: There is a regular rate and rhythm without any murmurs gallops or rubs. ABDOMEN: Soft and nontender with normal bowel sounds. SKIN: Skin is clear with no lesions or rashes and otherwise unremarkable. NEUROLOGIC: Patient is alert and oriented x3. Cranial nerves II through XII are grossly intact. Motor and sensory are also intact. Normal speech, volume and content. Symmetrical smile. MUSCULOSKELETAL: Normal extremities with adequate strength and full range of motion. Patient has 2+ edema bilaterally up to his distal thigh LYMPHATICS: No significant lymphadenopathy is noted PSYCHIATRIC: Normal psychiatric evaluation. Limitations: no limitations Course Vital Signs 06/24/22 06/24/22 06/24/22 07:31 08:31 09:09 Temperature 97.7 F Pulse Rate 90 89 Respiratory 22 24 20 Rate Blood Pressure 155/71 140/50 O2 Sat by Pulse 86 L 91 L Oximetry 06/24/22 09:16 Temperature Pulse Rate 80 Respiratory Rate Blood Pressure O2 Sat by Pulse Oximetry Medical Decision Making - Medical Decision Making I interpreted EKG EKG shows sinus rhythm at 84 bpm CA interval 260 QRS is 98 QT interval 354 QTC is 396. EKG shows no ST segment elevation or depression. EKG is of poor quality because of patient movement. Chest x-ray is interpreted by me. Chest x-ray shows pulmonary edema. Her patient received Lasix and Nitropaste in the emergency department. Patient remained on 5 L. Patient also received albuterol Atrovent treatment because of his long-standing history of smoking. [facility] I admitted the patient wrote admitting orders I continued Lasix Nitropaste on the floor. I consulted cardiology. Patient was hyperkalemic. I gave the patient an albuterol treatment as well as calcium chloride, D50, insulin, Kayexalate, sodium bicarbonate. - Lab Data Result diagrams: 06/24/22 08:14 06/24/22 08:14 Lab Results 06/24/22 06/24/22 06/24/22 Range/Units 08:14 08:14 08:14 WBC 6.3 (3.8-10.6) k/uL RBC 4.92 (4.30-5.90) m/uL Hgb 13.7 (13.0-17.5) gm/dL Hct 45.2 (39.0-53.0) % MCV 91.9 (80.0-100.0) fL MCH 27.9 (25.0-35.0) pg MCHC 30.3 L (31.0-37.0) g/dL RDW 14.6 (11.5-15.5) % Plt Count 187 (150-450) k/uL MPV 8.5 Neutrophils % 86 % Lymphocytes % 8 % Monocytes % 3 % Eosinophils % 2 % Basophils % 0 % Neutrophils # 5.4 (1.3-7.7) k/uL Lymphocytes # 0.5 L (1.0-4.8) k/uL Monocytes # 0.2 (0-1.0) k/uL Eosinophils # 0.1 (0-0.7) k/uL Basophils # 0.0 (0-0.2) k/uL Hypochromasia Marked PT 10.6 (9.0-12.0) sec INR 1.0 (<1.2) APTT 22.8 (22.0-30.0) sec Sodium 139 (137-145) mmol/L Potassium 6.6 H* (3.5-5.1) mmol/L Chloride 101 (98-107) mmol/L Carbon Dioxide 35 H (22-30) mmol/L Anion Gap 3 mmol/L BUN 35 H (9-20) mg/dL Creatinine 1.34 H (0.66-1.25) mg/dL Est GFR (CKD-EPI)AfAm 68 (>60 ml/min/1.73 sqM) Est GFR (CKD-EPI)NonAf 58 (>60 ml/min/1.73 sqM) Glucose 177 H (74-99) mg/dL Plasma Lactic Acid Saul (0.7-2.0) mmol/L Calcium 8.2 L (8.4-10.2) mg/dL Magnesium 2.2 (1.6-2.3) mg/dL Total Bilirubin 1.1 (0.2-1.3) mg/dL AST 18 (17-59) U/L ALT 17 (4-49) U/L Alkaline Phosphatase 94 (38-126) U/L Troponin I (0.000-0.034) ng/mL NT-Pro-B Natriuret Pep pg/mL Total Protein 6.8 (6.3-8.2) g/dL Albumin 3.7 (3.5-5.0) g/dL 06/24/22 06/24/22 06/24/22 Range/Units 08:14 08:14 08:14 WBC (3.8-10.6) k/uL RBC (4.30-5.90) m/uL Hgb (13.0-17.5) gm/dL Hct (39.0-53.0) % MCV (80.0-100.0) fL MCH (25.0-35.0) pg MCHC (31.0-37.0) g/dL RDW (11.5-15.5) % Plt Count (150-450) k/uL MPV Neutrophils % % Lymphocytes % % Monocytes % % Eosinophils % % Basophils % % Neutrophils # (1.3-7.7) k/uL Lymphocytes # (1.0-4.8) k/uL Monocytes # (0-1.0) k/uL Eosinophils # (0-0.7) k/uL Basophils # (0-0.2) k/uL Hypochromasia PT (9.0-12.0) sec INR (<1.2) APTT (22.0-30.0) sec Sodium (137-145) mmol/L Potassium (3.5-5.1) mmol/L Chloride (98-107) mmol/L Carbon Dioxide (22-30) mmol/L Anion Gap mmol/L BUN (9-20) mg/dL Creatinine (0.66-1.25) mg/dL Est GFR (CKD-EPI)AfAm (>60 ml/min/1.73 sqM) Est GFR (CKD-EPI)NonAf (>60 ml/min/1.73 sqM) Glucose (74-99) mg/dL Plasma Lactic Acid Saul 0.9 (0.7-2.0) mmol/L Calcium (8.4-10.2) mg/dL Magnesium (1.6-2.3) mg/dL Total Bilirubin (0.2-1.3) mg/dL AST (17-59) U/L ALT (4-49) U/L Alkaline Phosphatase (38-126) U/L Troponin I <0.012 (0.000-0.034) ng/mL NT-Pro-B Natriuret Pep 1620 pg/mL Total Protein (6.3-8.2) g/dL Albumin (3.5-5.0) g/dL Critical Care Time Critical Care Time: Yes Total Critical Care Time: 35 Disposition Clinical Impression: Acute pulmonary edema, Hyperkalemia Disposition: ADMITTED IP TO THIS [facility] Time of Disposition: 08:37
--- NOTE | 2022-06-24 08:29 | XR ---
EXAMINATION TYPE: XR chest 2V DATE OF EXAM: 06/24/2022 COMPARISON: 04/27/2022 HISTORY: 56-year-old male difficulty breathing TECHNIQUE: AP and lateral views FINDINGS: Heart mild to moderately enlarged. New perihilar and interstitial opacities, more patchy and confluen t now in the right upper lobe. There may be a trace effusion on the lateral view. IMPRESSION: 1. Cardiomegaly with new interstitial and perihilar opacities. Correlate for CHF with pulmonary vascu lar congestion. 2. Opacity is more confluent at the right upper lobe. This could represent pneumonia versus developin g pulmonary edema.
[2022-06-24 08:30] LABS: Basophils % (A) 0 %; Eosinophils # (A) 0.1 k/uL (0-0.7); Eosinophils % (A) 2 %; HCT 45.2 % (39.0-53.0); HGB 13.7 gm/dL (13.0-17.5); Hypochromasia Marked; Lymphocytes # (A) 0.5 k/uL (1.0-4.8); Lymphocytes % (A) 8 %; MCH 27.9 pg (25.0-35.0); MCHC 30.3 g/dL (31.0-37.0); MCV 91.9 fL (80.0-100.0); Mean Platelet Volume 8.5; Monocytes # (A) 0.2 k/uL (0-1.0); Monocytes % (A) 3 %; Neutrophils # (A) 5.4 k/uL (1.3-7.7); Neutrophils % (A) 86 %; Platelet Count 187 k/uL (150-450); RBC 4.92 m/uL (4.30-5.90); RDW 14.6 % (11.5-15.5); WBC 6.3 k/uL (3.8-10.6)
[2022-06-24] MEDS ORDERED: IPRATROPIUM-ALBUTEROL 3 ML NEB INHALATION STA (08:37)
[2022-06-24 08:43] LABS: Partial Thromboplastin Time 22.8 sec (22.0-30.0); Prothrombin Time 10.6 sec (9.0-12.0)
[2022-06-24 08:45] LABS: Albumin 3.7 g/dL (3.5-5.0); Calcium 8.2 mg/dL (8.4-10.2); Magnesium 2.2 mg/dL (1.6-2.3); Total Bilirubin 1.1 mg/dL (0.2-1.3); Total Protein 6.8 g/dL (6.3-8.2)
[2022-06-24 09:02] LABS: Potassium 6.6 mmol/L (3.5-5.1)
[2022-06-24] MEDS ORDERED: SODIUM BICARB 8.4% 50 ML SYR (1 MEQ/ML) IV STA (09:10)
[2022-06-24] MEDS ORDERED: INSULIN REGULAR 100 UNIT/ML VIAL (IV) IV ONE (09:17)
[2022-06-24] MEDS ORDERED: DEXTROSE 50% SYRINGE 50 ML IVP STA (09:17)
[2022-06-24] MEDS ORDERED: CALCIUM CHLORIDE 100 MG/ML 10 ML SYRINGE IVP STA (09:17)
[2022-06-24] MEDS ORDERED: SODIUM POLYSTYRENE SULFONATE 15 GM/60 ML BOTTLE PO STA (09:18)
[2022-06-24 11:20] LABS: Glucose,Whole Blood 126 mg/dL (70-110)
[2022-06-24 13:33] VITALS: BMI 39.1
[2022-06-24] MEDS: NITROGLYCERIN OINT 1 INCH/GM PACKET TOPICAL SCH ×3 (13:39→20:50)
[2022-06-24] MEDS ORDERED: ALBUTEROL NEBULIZED 2.5 MG/3 ML INHALATION PRN (14:32)
[2022-06-24] MEDS ORDERED: SODIUM ZIRCONIUM CYCLOSILICATE 10 GM PACKET PO ONE (15:30)
[2022-06-24 16:41] LABS: Glucose,Whole Blood 115 mg/dL (70-110)
[2022-06-24] MEDS: FUROSEMIDE 10 MG/ML 4 ML VIAL IV SCH (17:23)
[2022-06-24 20:28] LABS: Glucose,Whole Blood 131 mg/dL (70-110)
[2022-06-24] MEDS: traZODone HCL 50 MG TAB PO SCH (20:48)
[2022-06-24] MEDS: HEPARIN SODIUM,PORCINE/PF 5,000 UNIT/0.5 ML SYRINGE SQ SCH (20:48)
[2022-06-24] MEDS: AMITRIPTYLINE HCL 10 MG TAB PO SCH (20:48)
[2022-06-24] MEDS: PREGABALIN 75 MG CAP PO SCH (20:49)
[2022-06-25] MEDS: FUROSEMIDE 10 MG/ML 4 ML VIAL IV SCH ×3 (01:03→16:06)
--- NOTE | 2022-06-25 03:01 | HP ---
HISTORY AND PHYSICAL CHIEF COMPLAINT: Shortness of breath. HISTORY OF PRESENT ILLNESS: This is a 56-year-old gentleman with a past medical history of multiple medical issues including CHF, CVA, TIA, diabetes mellitus type 2, was complaining of increasing shortness of breath. The patient had some difficulty in breathing and was found to have CHF acute exacerbation, admitted for further evaluation and treatment. There is no history of any fever, rigors, or chills. The patient is started on IV Lasix and cardiology evaluation in progress also. The patient's potassium was also found to be extremely elevated at 6.6 with a creatinine of 1.34, and nephrology is also being consulted. PAST MEDICAL HISTORY: History of CHF, CVA, diabetes mellitus. The rest of the history and whole chart is reviewed. HOME MEDICATIONS: Reviewed, include Desyrel. Doses and rest of medications reviewed. ALLERGIES: Atorvastatin. FAMILY HISTORY: No history of heart disease or strokes in the family. SOCIAL HISTORY: Previous history of smoking. REVIEW OF SYSTEMS: A 14-point review of systems is negative as mentioned earlier. PHYSICAL EXAMINATION: VITAL SIGNS: Pulse is 77, blood pressure n, respirations 18. HEENT: Conjunctivae normal. NECK: No jugular venous distention. CARDIOVASCULAR: S1, S2 muffled. RESPIRATIONS: At the bases. A few scattered rhonchi. ABDOMEN: Soft, obese. LEGS: No edema. NERVOUS SYSTEM: No focal deficit. SKIN: No ulcers. JOINTS: No active deforming arthropathy. LABORATORY DATA: CBC within normal limits. Potassium . Rest of the labs and chest x-ray personally reviewed by me. ASSESSMENT: 1. Congestive heart failure acute exacerbation with probably acute on chronic diastolic dysfunction. 2. Hyperkalemia. 3. History of cerebrovascular accident, transient ischemic attack. 4. Diabetes mellitus, type 2. 5. History of motion sickness. RECOMMENDATION: This is a 56-year-old gentleman, who presented with multiple complex medical issues. We will monitor the patient closely. We will continue the current medications, continue symptomatic treatment. Resume the home medications. Avoid SANJIV inhibitors and ARBs. Monitor potassium closely. Nephrology consultation. Other than that, low potassium diet. Cardiology consultation. We will hold the lisinopril for now. See orders for further details. Monitor fluid/electrolyte balance closely. Fluid restriction. Prognosis is extremely guarded because of multiple complex medical issues including renal failure, heart failure, and severe hyperkalemia. Further recommendations to follow. MMODL / IJN: [id number] / MTDD
[2022-06-25 05:47] LABS: Glucose,Whole Blood 151 mg/dL (70-110)
[2022-06-25] MEDS: PANTOPRAZOLE 40 MG TABLET PO SCH (06:35)
[2022-06-25] MEDS: IPRATROPIUM 0.5 MG/2.5 ML NEBU INHALATION SCH ×4 (07:31→19:23)
[2022-06-25] MEDS: SYMBICORT 80-4.5 MCG INHALER INHALATION SCH ×2 (07:31→19:24)
[2022-06-25] MEDS: ASPIRIN 81 MG PO SCH (08:48)
[2022-06-25] MEDS: amLODIPine 10 MG TAB PO SCH (08:48)
[2022-06-25] MEDS: HEPARIN SODIUM,PORCINE/PF 5,000 UNIT/0.5 ML SYRINGE SQ SCH ×2 (08:48→22:20)
[2022-06-25] MEDS: PREGABALIN 75 MG CAP PO SCH ×2 (08:48→22:20)
[2022-06-25] MEDS: NITROGLYCERIN OINT 1 INCH/GM PACKET TOPICAL SCH ×2 (08:49→12:54)
[2022-06-25] MEDS ORDERED: METOPROLOL SUCCINATE (ER) 25 MG TAB.ER.24H PO SCH (09:00)
--- NOTE | 2022-06-25 09:52 | P.NPCON ---
History of Present Illness - Reason for Consult acute renal failure - History of Present Illness Reason for consultation: Acute kidney injury History of present illness: Patient is a 56-year-old male seen in renal consultation for acute kidney injury. Patient's baseline creatinine is near 1 and was elevated at 1.34 yesterday. Patient came to the hospital due to shortness of breath. Patient states shortness of breath has been worsening over the last 2 weeks but he was delaying coming to the hospital. Patient states he was recently admitted at another facility with similar complaints. He is currently on IV Lasix. States shortness of breath is improving. He also complains of swelling in lower extremities which she states is not improving with diuresis. He has long- standing history of diabetes. Denies use of nonsteroidals. Denies chest pain. No vomiting or diarrhea. No fever or chills. Oral intake is good. Denies family history of renal disease. No hematuria. Denies history of coronary artery disease. Potassium was also high at 6.6 on admission and was down to 5.1 as of last night. He was taking lisinopril outpatient which is currently held. Vital signs are stable. General: Awake. No acute distress. HEENT: Head exam is unremarkable. LUNGS: Breath sounds decreased. On nasal cannula. HEART: Rate and Rhythm are regular. ABDOMEN: Soft, obese. EXTREMITITES: 1+ edema. Chronic changes noted. Past Medical History Past Medical History: Heart Failure, CVA/TIA, Diabetes Mellitus Additional Past Medical History / Comment(s): HX CVA MAY 2019 AFFECTED LEFT SIDE - STILL HAS LEFT TOES NUMB AND LEFT HAND WEAKNESS History of Any Multi-Drug Resistant Organisms: None Reported Past Surgical History: Heart Catheterization Past Anesthesia/Blood Transfusion Reactions: Motion Sickness Additional Past Anesthesia/Blood Transfusion Reaction / Comment(s): HAS NEVER RECEIVED ANESTHESIA Past Psychological History: No Psychological Hx Reported Smoking Status: Former smoker Past Alcohol Use History: None Reported Additional Past Alcohol Use History / Comment(s): QUIT SMOKING MAY 2019, SMOKED 2 CIGARS DAILY FOR 2 YEARS. Past Drug Use History: None Reported - Past Family History Mother Family Medical History: No Reported History Medications and Allergies Home Medications Medication Instructions Recorded Confirmed Type Aspirin [Adult Low Dose Aspirin EC] 81 mg PO DAILY 12/10/18 06/24/22 History Pioglitazone [Actos] 30 mg PO DAILY 12/10/18 06/24/22 History amLODIPine [Norvasc] 10 mg PO DAILY 12/10/18 06/24/22 History metFORMIN HCL [Glucophage] 1,000 mg PO BID-W/MEALS 12/10/18 06/24/22 History lisinopriL [Zestril] 20 mg PO DAILY 12/23/18 06/24/22 History Albuterol Inhaler [Ventolin Hfa 2 puff INHALATION RT-QID PRN 06/24/22 06/24/22 History Inhaler] Amitriptyline HCl [Elavil] 10 mg PO HS 06/24/22 06/24/22 History Fluticasone/Umeclidin/Vilanter 1 puff INHALATION RT-DAILY 06/24/22 06/24/22 History [Trelegy Ellipta 100-62.5-25] Furosemide [Lasix] 20 mg PO DAILY 06/24/22 06/24/22 History Metoprolol Succinate (ER) [Toprol 25 mg PO DAILY 06/24/22 06/24/22 History Xl] Pregabalin [Lyrica] 150 mg PO BID 06/24/22 06/24/22 History traZODone HCL [Desyrel] 25 - 50 mg PO HS 06/24/22 06/24/22 History Allergies Allergy/AdvReac Type Severity Reaction Status Date / Time atorvastatin AdvReac Unknown stomach Verified 06/24/22 10:44 pain Physical Exam Vitals: Vital Signs Temp Pulse Pulse Resp BP BP Pulse Ox 06/25/22 07:42 78 06/25/22 07:41 98.2 F 76 18 147/74 89 L 06/25/22 07:32 76 06/25/22 01:27 98.2 F 84 19 147/77 92 L 06/24/22 20:00 89 06/24/22 19:32 97.9 F 87 19 158/65 91 L 06/24/22 16:35 92 L 06/24/22 14:33 98.0 F 78 18 110/67 92 L 06/24/22 11:05 97.8 F 72 18 112/68 93 L 06/24/22 10:30 77 20 128/78 91 L 06/24/22 10:00 77 18 135/62 93 L Intake and Output 06/24/22 06/25/22 06/25/22 22:59 06:59 14:59 Intake Total 550 Output Total 1800 3200 Balance -1250 -3200 Intake: Oral 550 Output: Urine 1800 3200 Stool 0 Other: Voiding Method Urinal Weight 154.9 kg Results - Lab Results Most recent lab results Calcium 8.2 mg/dL (8.4-10.2) L 06/24/22 08:14 Magnesium 2.2 mg/dL (1.6-2.3) 06/24/22 08:14 06/24/22 08:14 06/24/22 19:55 Assessment and Plan Plan: Assessment: 1. Acute kidney injury mostly prerenal secondary to cardiorenal syndrome. Creatinine 1.34 yesterday. 2. Volume overload. 3. Hyperkalemia secondary to acute kidney injury and lisinopril. Improved with medical management. 4. Diabetes mellitus. Plan: Maintain IV Lasix. Low-salt diet. Continue to hold lisinopril. Avoid nephrotoxins. Consider echocardiogram. Cardiology has been consulted. Check urinalysis. Check renal ultrasound. Morning labs pending. Thank you for the consultation. I will continue to follow the patient with you during his hospital stay.
[2022-06-25 11:34] LABS: Glucose,Whole Blood 163 mg/dL (70-110)
[2022-06-25 11:56] LABS: Appearance,Urine Clear (Clear); Bilirubin,Urine Negative (Negative); Blood,Urine Negative (Negative); Color,Urine Colorless; Glucose,Urine (UA) Negative (Negative); Ketones,Urine Negative (Negative); Leukocyte Esterase,Urine Negative (Negative); Nitrite,Urine Negative (Negative); PH, Urine 7.5 (5.0-8.0); Protein,Urine Negative (Negative); Specific Gravity,Urine 1.006 (1.001-1.035); Urobilinogen,Urine <2.0 mg/dL (<2.0)
--- NOTE | 2022-06-25 12:19 | US ---
EXAMINATION TYPE: US kidneys/renal and bladder DATE OF EXAM: 06/25/2022 COMPARISON: NONE CLINICAL HISTORY: 56 year-old male acute kidney injury, morbidly obese TECHNIQUE: Multiple sonographic images of the kidneys and bladder are obtained. FINDINGS: EXAM MEASUREMENTS: Right Kidney: 10.2 x 5.2 x 5.8 cm Left Kidney: 10.5 x 4.8 x 6.5 cm Right Kidney: No hydronephrosis or masses seen Left Kidney: No hydronephrosis or masses seen Bladder: wnl IMPRESSION: No hydronephrosis on either side.
[2022-06-25 12:26] LABS: African American GFR (CKD) 58.6 (60.0-200.0); Anion Gap 9.8 mmol/L (10.00-18.00); BUN/Creat Ratio 18.87 Ratio (12.00-20.00); Blood Urea Nitrogen 28.3 mg/dL (9.0-27.0); Carbon Dioxide 37.2 mmol/L (20.0-27.5); Non-African American GFR(CKD) 50.6 (60.0-200.0); Potassium 5.1 mmol/L (3.5-5.5)
[2022-06-25] MEDS ORDERED: Magnesium Replacement Protocol 1 EACH MISC MISCELLANE PRN (13:11)
[2022-06-25 14:01] LABS: Basophils # (A) 0.03 X 10*3/uL (0.00-0.10); Basophils % (A) 0.7 %; Eosinophils # (A) 0.16 X 10*3/uL (0.04-0.35); Eosinophils % (A) 3.5 %; HCT 44.1 % (39.6-50.0); HGB 12.9 g/dL (13.0-17.0); Immature Grans, Automated 0.2 %; Lymphocytes # (A) 0.57 X 10*3/uL (0.90-5.00); Lymphocytes % (A) 12.5 %; MCH 26.3 pg (27.0-32.0); MCHC 29.3 g/dL (32.0-37.0); MCV 89.8 fL (80.0-97.0); Mean Platelet Volume 10.5 fL (9.5-12.2); Monocytes # (A) 0.35 X 10*3/uL (0.20-1.00); Monocytes % (A) 7.7 %; NRBC Per 100 WBC 0 /100 WBCS (0.0-0.0); Neutrophils # (A) 3.44 X 10*3/uL (1.80-7.70); Neutrophils % (A) 75.4 %; Platelet Count 171 X 10*3/uL (140-440); RBC 4.91 X 10*6/uL (4.40-5.60); RBC Morphology NORMAL; RDW 14.9 % (11.5-14.5); WBC 4.56 X 10*3/uL (4.50-10.00)
--- NOTE | 2022-06-25 14:54 | P.CRDCN ---
History of Present Illness Consult date: 06/25/22 History of present illness: Patient has a known history of congestive heart failure, CVA/TIA, diabetes type 2. Patient was recently seen at [facility] a few weeks ago and seen a assurance senior manager insurance there. At that time he was told he had congestive heart failure. Patient came to the ER complaining of increased shortness of breath and lower extremity edema up into his abdomen. He reports he had a reaction to a medication a few months ago and since then he has stopped taking all medications including the meds he was discharged home on from [facility]. We have been cons ult to see him for acute on chronic congestive heart failure exacerbation. His troponins are negative 3 BNP is 1620 he is sinus rhythm on the monitor. His chest x-ray showed cardiomegaly with no interstitial opacities correlated for CHF with pulmonary vascular congestion. He is on Lasix 40 mg IV every 8 hours. Initially his potassium was 6.6 it is down to 5.1. Patient had a beat run of V. tach last night. Will increase his metoprolol to 50 mg daily. Patient had a heart cath 2018 which showed normal coronary arteries. Will restart lisinopril at 10 mg daily and discontinue Nitropaste. Will obtain a 2-D echocardiogram Review of Systems REVIEW OF SYSTEMS At the time of my exam: CONSTITUTIONAL: Denies fever or chills. EYES: Negative for vision changes ENT: Negative for hearing loss CARDIOVASCULAR: Denies chest pain, shortness of breath, diaphoresis, orthopnea, PND or palpitations. VASCULAR: edema RESPIRATORY: Denies cough. Complains of shortness of breath GASTROINTESTINAL: Denies abdominal pain, diarrhea, constipation, nausea or vomiting. MUSCULOSKELETAL: Denies myalgias. NEUROLOGIC: Denies numbness, tingling, headache or weakness. ENDOCRINE: Denies fatigue, weight change, polydipsia or polyurina. GENITOURINARY: Denies burning, hematuria or urgency with micturation. HEMATOLOGIC: Denies history of anemia or bleeding. DERMATOLOGY: Denies rash or skin sores PSYCH: Negative for depression or hallucinations. Past Medical History Past Medical History: Heart Failure, CVA/TIA, Diabetes Mellitus Additional Past Medical History / Comment(s): HX CVA MAY 2019 AFFECTED LEFT SIDE - STILL HAS LEFT TOES NUMB AND LEFT HAND WEAKNESS History of Any Multi-Drug Resistant Organisms: None Reported Past Surgical History: Heart Catheterization Past Anesthesia/Blood Transfusion Reactions: Motion Sickness Additional Past Anesthesia/Blood Transfusion Reaction / Comment(s): HAS NEVER RECEIVED ANESTHESIA Past Psychological History: No Psychological Hx Reported Smoking Status: Former smoker Past Alcohol Use History: None Reported Additional Past Alcohol Use History / Comment(s): QUIT SMOKING MAY 2019, SMOKED 2 CIGARS DAILY FOR 2 YEARS. Past Drug Use History: None Reported - Past Family History Mother Family Medical History: No Reported History Medications and Allergies Home Medications Medication Instructions Recorded Confirmed Type Aspirin [Adult Low Dose Aspirin EC] 81 mg PO DAILY 12/10/18 06/24/22 History Pioglitazone [Actos] 30 mg PO DAILY 12/10/18 06/24/22 History amLODIPine [Norvasc] 10 mg PO DAILY 12/10/18 06/24/22 History metFORMIN HCL [Glucophage] 1,000 mg PO BID-W/MEALS 12/10/18 06/24/22 History lisinopriL [Zestril] 20 mg PO DAILY 12/23/18 06/24/22 History Albuterol Inhaler [Ventolin Hfa 2 puff INHALATION RT-QID PRN 06/24/22 06/24/22 History Inhaler] Amitriptyline HCl [Elavil] 10 mg PO HS 06/24/22 06/24/22 History Fluticasone/Umeclidin/Vilanter 1 puff INHALATION RT-DAILY 06/24/22 06/24/22 History [Trelegy Ellipta 100-62.5-25] Furosemide [Lasix] 20 mg PO DAILY 06/24/22 06/24/22 History Metoprolol Succinate (ER) [Toprol 25 mg PO DAILY 06/24/22 06/24/22 History Xl] Pregabalin [Lyrica] 150 mg PO BID 06/24/22 06/24/22 History traZODone HCL [Desyrel] 25 - 50 mg PO HS 06/24/22 06/24/22 History Allergies Allergy/AdvReac Type Severity Reaction Status Date / Time atorvastatin AdvReac Unknown stomach Verified 06/24/22 10:44 pain Physical Exam Vitals: Vital Signs Temp Pulse Pulse Resp BP Pulse Ox 06/25/22 11:47 72 06/25/22 11:38 72 06/25/22 07:42 78 06/25/22 07:41 98.2 F 76 18 147/74 89 L 06/25/22 07:32 76 06/25/22 01:27 98.2 F 84 19 147/77 92 L 06/24/22 20:00 89 06/24/22 19:32 97.9 F 87 19 158/65 91 L 06/24/22 16:35 92 L Intake and Output 06/24/22 06/25/22 06/25/22 22:59 06:59 14:59 Intake Total 550 Output Total 1800 3200 Balance -1250 -3200 Intake: Oral 550 Output: Urine 1800 3200 Stool 0 Other: Voiding Method Urinal Weight 154.9 kg General: The patient is awake and alert, in no distress, and does not appear acutely ill. Skin: Skin is warm and dry and no rashes or lesions are noted. Eye: Pupils are equal, round and reactive to light, extra-ocular movements are intact; there is normal conjunctiva bilaterally. Ears, nose, mouth and throat: There are moist mucous membranes and no oral lesions. Neck: The neck is supple, there is no tenderness or JVD. Cardiovascular: There is irregular regular rate and rhythm. No murmur, rub or gallop is appreciated. Respiratory: Lungs are clear to auscultation, respirations are non-labored, breath sounds are equal. Gastrointestinal: Soft, non-distended, non-tender abdomen without masses or organomegaly noted. There is no rebound or guarding present. Bowel sounds are unremarkable. Back: There is no tenderness to palpation in the midline. There is no obvious d eformity. Musculoskeletal: Normal ROM, no tenderness, There is no pedal edema. There is no calf tenderness or swelling. Extremities: Mild bilateral pitting edema Vascular: Femoral pulse is normal. Posterior tibial pulses are normal .Dorsalis pedis is palpable. Neurological: CN II-XII intact. There are no obvious motor or sensory deficits. Speech is normal. Psychiatric: Cooperative, appropriate mood & affect, normal judgment Results 06/25/22 07:19 06/25/22 07:19 CBC 06/25/22 Range/Units 07:19 WBC 4.56 (4.50-10.00) X 10*3/uL RBC 4.91 (4.40-5.60) X 10*6/uL Hgb 12.9 L (13.0-17.0) g/dL Hct 44.1 (39.6-50.0) % Plt Count 171 (140-440) X 10*3/uL Comprehensive Metabolic Panel 06/24/22 06/25/22 Range/Units 19:55 07:19 Sodium 139 (135-145) mmol/L Potassium 5.1 5.1 (3.5-5.1) mmol/L Chloride 92 L (96-109) mmol/L Carbon Dioxide 37.2 H (20.0-27.5) mmol/L BUN 28.3 H (9.0-27.0) mg/dL Creatinine 1.5 (0.6-1.5) mg/dL Glucose 124 H (70-110) mg/dL Calcium 9.0 (8.7-10.3) mg/dL Current Medications Generic Name Dose Route Start Last Admin Trade Name Freq PRN Reason Stop Dose Admin Albuterol Sulfate 2.5 mg 06/24/22 14:32 Albuterol Nebulized 2.5 Mg/3 Ml INHALATION RT-QID PRN Shortness Of Breath Amitriptyline HCl 10 mg 06/24/22 21:00 06/24/22 20:48 Amitriptyline Hcl 10 Mg Tab PO 10 mg HS DOMI Administration Amlodipine Besylate 10 mg 06/25/22 09:00 06/25/22 08:48 Amlodipine 10 Mg Tab PO 10 mg DAILY DOMI Administration Aspirin 81 mg 06/25/22 09:00 06/25/22 08:48 Aspirin 81 Mg PO 81 mg DAILY DOMI Administration Budesonide/Formoterol Fumarate 2 puff 06/25/22 08:00 06/25/22 07:31 Symbicort 80-4.5 Mcg Inhaler INHALATION 2 puff RT-BID DOMI Administration Furosemide 40 mg 06/24/22 17:00 06/25/22 08:49 Furosemide 10 Mg/Ml 4 Ml Vial IV 40 mg Q8H DOMI Administration Heparin Sodium (Porcine) 5,000 unit 06/24/22 21:00 06/25/22 08:48 Heparin Sodium,Porcine/Pf 5,000 Unit/0.5 Ml Syringe SQ 5,000 unit Q12HR DOMI Administration Ipratropium Morrill 0.5 mg 06/25/22 08:00 06/25/22 11:38 Ipratropium 0.5 Mg/2.5 Ml Nebu INHALATION 0.5 mg RT-QID DOMI Administration Metoprolol Succinate 25 mg 06/25/22 09:00 06/25/22 08:48 Metoprolol Succinate (Er) 25 Mg Tab.Er.24h PO 25 mg DAILY DOMI Administration Miscellaneous Information 1 each 06/25/22 13:11 Magnesium Replacement Protocol 1 Each Misc MISCELLANE DAILY PRN Per Protocol Protocol Nitroglycerin 1 inch 06/24/22 13:00 06/25/22 12:54 Nitroglycerin Oint 1 Inch/Gm Packet TOPICAL 1 inch QID DOMI Administration Pantoprazole Sodium 40 mg 06/25/22 07:30 06/25/22 06:35 Pantoprazole 40 Mg Tablet PO 40 mg [id number] DOMI Administration Pregabalin 150 mg 06/24/22 21:00 06/25/22 08:48 Pregabalin 75 Mg Cap PO 150 mg BID DOMI Administration Trazodone HCl 25 mg 06/24/22 21:00 06/24/22 20:48 Trazodone Hcl 50 Mg Tab PO 25 mg HS DOMI Administration Intake and Output 06/24/22 06/25/22 06/25/22 22:59 06:59 14:59 Intake Total 550 Output Total 1800 3200 Balance -1250 -3200 Intake: Oral 550 Output: Urine 1800 3200 Stool 0 Other: Voiding Method Urinal Weight 154.9 kg 06/25/22 07:19 06/25/22 07:19 Assessment and Plan Assessment: Acute on chronic systolic congestive heart failure Plan: Increase metoprolol to 50 mg daily Discontinue Nitropaste Start lisinopril 10 mg daily Follow kidney function Obtain a 2-D echocardiogram Further recommendations based on clinical course The above impression and plan of care have been discussed and directed by the signing physician. Aleksandra Armstrong, nurse practitioner, acting as scribe for signing physician.
[2022-06-25] MEDS ORDERED: METOPROLOL SUCCINATE (ER) 25 MG TAB.ER.24H PO STA (14:56)
[2022-06-25] MEDS: lisinopriL 10 MG TAB PO SCH (16:05)
[2022-06-25 16:55] LABS: Glucose,Whole Blood 124 mg/dL (70-110)
[2022-06-25 20:44] LABS: Glucose,Whole Blood 125 mg/dL (70-110)
[2022-06-25] MEDS: traZODone HCL 50 MG TAB PO SCH (22:20)
[2022-06-25] MEDS: AMITRIPTYLINE HCL 10 MG TAB PO SCH (22:20)
[2022-06-26] MEDS: FUROSEMIDE 10 MG/ML 4 ML VIAL IV SCH ×3 (00:45→16:09)
--- NOTE | 2022-06-26 04:08 | PN ---
PROGRESS NOTE DATE OF SERVICE: 06/25/2022 SUBJECTIVE: This 56-year-old gentleman, who was admitted with CHF acute exacerbation, is still on IV Lasix. The patient is feeling much better. No chest pain. No palpitations. No fever. PHYSICAL EXAMINATION: VITAL SIGNS: On exam, pulse 76, blood pressure 147/74, respirations 18. CHEST: A few scattered rhonchi. CARDIOVASCULAR: S1 and S2. ABDOMEN: Soft. LEGS: Edema present. LABORATORY DATA: Noted. ASSESSMENT: 1. Congestive heart failure acute exacerbation with acute on chronic diastolic dysfunction, on IV Lasix. 2. Hyperkalemia. 3. History of cerebrovascular accident, transient ischemic attack. 4. Diabetes mellitus, type 2. 5. History of motion sickness. RECOMMENDATIONS: Recommended to continue current management. Continue with IV Lasix. Restrict fluids. Increase ambulation. Possible discharge in the next 24 to 48 hours. MMODL / IJN: [id number] /
[2022-06-26 06:12] LABS: Glucose,Whole Blood 141 mg/dL (70-110)
[2022-06-26] MEDS: PANTOPRAZOLE 40 MG TABLET PO SCH (06:55)
[2022-06-26] MEDS: IPRATROPIUM 0.5 MG/2.5 ML NEBU INHALATION SCH ×4 (07:20→19:46)
[2022-06-26] MEDS: SYMBICORT 80-4.5 MCG INHALER INHALATION SCH ×2 (07:20→19:45)
--- NOTE | 2022-06-26 08:47 | XR ---
EXAMINATION TYPE: XR chest 1V portable DATE OF EXAM: 06/26/2022 6:27 AM COMPARISON: Chest radiograph from two days prior. TECHNIQUE: XR chest 1V portable Portable AP radiograph of the chest. CLINICAL INDICATION:Male, 56 years old with history of chf; FINDINGS: Lungs/Pleura: Improved aeration of the lungs with persistent scattered airspace opacities. There is n o evidence of pleural effusion, focal consolidation, or pneumothorax. Pulmonary vascularity: Unremarkable. Heart/mediastinum: Cardiomediastinal silhouette is unremarkable. Musculoskeletal: No acute osseous pathology. IMPRESSION: Improved aeration of the lungs on today's exam with persistent subtle scattered airspace opacities co uld represent resolving pulmonary vascular congestion.
[2022-06-26 09:00] LABS: Basophils # (A) 0.03 X 10*3/uL (0.00-0.10); Basophils % (A) 0.7 %; Eosinophils # (A) 0.14 X 10*3/uL (0.04-0.35); Eosinophils % (A) 3.1 %; HCT 46.3 % (39.6-50.0); HGB 13.4 g/dL (13.0-17.0); Immature Grans, Automated 0.2 %; Lymphocytes # (A) 0.62 X 10*3/uL (0.90-5.00); Lymphocytes % (A) 13.9 %; MCH 26.3 pg (27.0-32.0); MCHC 28.9 g/dL (32.0-37.0); Mean Platelet Volume 10.5 fL (9.5-12.2); Monocytes # (A) 0.33 X 10*3/uL (0.20-1.00); Monocytes % (A) 7.4 %; NRBC Per 100 WBC 0 /100 WBCS (0.0-0.0); Neutrophils # (A) 3.33 X 10*3/uL (1.80-7.70); Neutrophils % (A) 74.7 %; Platelet Count 162 X 10*3/uL (140-440); RBC 5.09 X 10*6/uL (4.40-5.60); RDW 14.6 % (11.5-14.5); WBC 4.46 X 10*3/uL (4.50-10.00)
[2022-06-26 09:20] LABS: African American GFR (CKD) 58.6 (60.0-200.0); Albumin 3.7 g/dL (3.8-4.9); Albumin/Globulin Ratio 1.12 (1.60-3.17); Anion Gap 12.7 mmol/L (10.00-18.00); BUN/Creat Ratio 18.53 Ratio (12.00-20.00); Blood Urea Nitrogen 27.8 mg/dL (9.0-27.0); Calcium 8.8 mg/dL (8.7-10.3); Carbon Dioxide 37.3 mmol/L (20.0-27.5); Globulin 3.3 g/dL (1.6-3.3); Magnesium 1.9 mg/dL (1.5-2.4); Non-African American GFR(CKD) 50.6 (60.0-200.0); Potassium 4.6 mmol/L (3.5-5.5); Total Bilirubin 1.2 mg/dL (0.30-1.20)
[2022-06-26] MEDS: PREGABALIN 75 MG CAP PO SCH ×2 (09:55→21:47)
[2022-06-26] MEDS: amLODIPine 10 MG TAB PO SCH (09:55)
[2022-06-26] MEDS: HEPARIN SODIUM,PORCINE/PF 5,000 UNIT/0.5 ML SYRINGE SQ SCH ×2 (09:55→21:47)
[2022-06-26] MEDS: ASPIRIN 81 MG PO SCH (09:55)
[2022-06-26] MEDS: lisinopriL 10 MG TAB PO SCH (09:55)
[2022-06-26] MEDS: METOPROLOL SUCCINATE (ER) 50 MG TAB.ER.24H PO SCH (09:55)
--- NOTE | 2022-06-26 09:59 | P.PN ---
Subjective Patient is seen in follow-up for acute kidney injury. Renal function stable. On IV Lasix. Good urine output. No chest pain or shortness of breath. On 5 L nasal cannula. Blood pressure stable this morning. Vital signs are stable. General: Awake. No acute distress. HEENT: Head exam is unremarkable. On nasal cannula. LUNGS: Breath sounds decreased. HEART: Rate and Rhythm are regular. ABDOMEN: Soft, obese. EXTREMITITES: 1+ edema. Objective - Vital Signs Vital signs: Vital Signs Temp 97.7 F 06/26/22 07:23 Pulse 74 06/26/22 07:23 Resp 17 06/26/22 07:23 BP 129/74 06/26/22 07:23 Pulse Ox 91 L 06/26/22 07:23 FiO2 Intake & Output 06/25/22 06/26/22 06/26/22 18:59 06:59 18:59 Weight 151.2 kg Other: Voiding Method Toilet Urinal # Voids 2 2 - Labs CBC & Chem 7: 06/26/22 05:56 06/26/22 05:56 Labs: Abnormal Lab Results - Last 24 Hours (Table) 06/25/22 06/25/22 06/25/22 Range/Units 07:19 07:19 11:33 WBC (4.50-10.00) X 10*3/uL Hgb 12.9 L (13.0-17.0) g/dL MCH 26.3 L (27.0-32.0) pg MCHC 29.3 L (32.0-37.0) g/dL RDW 14.9 H (11.5-14.5) % Lymphocytes # 0.57 L (0.90-5.00) X 10*3/uL Chloride 92 L (96-109) mmol/L Carbon Dioxide 37.2 H (20.0-27.5) mmol/L Anion Gap 9.80 L (10.00-18.00) mmol/L BUN 28.3 H (9.0-27.0) mg/dL Est GFR (CKD-EPI)AfAm 58.6 L (60.0-200.0) Est GFR (CKD-EPI)NonAf 50.6 L (60.0-200.0) Glucose 124 H (70-110) mg/dL POC Glucose (mg/dL) 163 H (70-110) mg/dL AST (14-35) U/L Albumin (3.8-4.9) g/dL Albumin/Globulin Ratio (1.60-3.17) g/dL 06/25/22 06/25/22 06/26/22 Range/Units 16:54 20:42 05:56 WBC (4.50-10.00) X 10*3/uL Hgb (13.0-17.0) g/dL MCH (27.0-32.0) pg MCHC (32.0-37.0) g/dL RDW (11.5-14.5) % Lymphocytes # (0.90-5.00) X 10*3/uL Chloride 93 L (96-109) mmol/L Carbon Dioxide 37.3 H (20.0-27.5) mmol/L Anion Gap (10.00-18.00) mmol/L BUN 27.8 H (9.0-27.0) mg/dL Est GFR (CKD-EPI)AfAm 58.6 L (60.0-200.0) Est GFR (CKD-EPI)NonAf 50.6 L (60.0-200.0) Glucose 150 H (70-110) mg/dL POC Glucose (mg/dL) 124 H 125 H (70-110) mg/dL AST 11 L (14-35) U/L Albumin 3.7 L (3.8-4.9) g/dL Albumin/Globulin Ratio 1.12 L (1.60-3.17) g/dL 06/26/22 06/26/22 Range/Units 05:56 06:10 WBC 4.46 L (4.50-10.00) X 10*3/uL Hgb (13.0-17.0) g/dL MCH 26.3 L (27.0-32.0) pg MCHC 28.9 L (32.0-37.0) g/dL RDW 14.6 H (11.5-14.5) % Lymphocytes # 0.62 L (0.90-5.00) X 10*3/uL Chloride (96-109) mmol/L Carbon Dioxide (20.0-27.5) mmol/L Anion Gap (10.00-18.00) mmol/L BUN (9.0-27.0) mg/dL Est GFR (CKD-EPI)AfAm (60.0-200.0) Est GFR (CKD-EPI)NonAf (60.0-200.0) Glucose (70-110) mg/dL POC Glucose (mg/dL) 141 H (70-110) mg/dL AST (14-35) U/L Albumin (3.8-4.9) g/dL Albumin/Globulin Ratio (1.60-3.17) g/dL Microbiology - Last 24 Hours (Table) 06/24/22 08:14 Blood Culture - Preliminary Blood No Growth after 24 hours 06/24/22 08:14 Blood Culture - Preliminary Blood No Growth after 24 hours Assessment and Plan Plan: Assessment: 1. Acute kidney injury mostly prerenal secondary to cardiorenal syndrome. Creatinine stable at 1.5. No hydronephrosis noted on kidney ultrasound. UA benign. 2. Volume overload. Improving with diuresis. 3. Hyperkalemia secondary to acute kidney injury and lisinopril. Improved with medical management. 4. Diabetes mellitus. Plan: Maintain IV Lasix. Low-salt diet. 1500 mL fluid restriction. Avoid nephrotoxins. Follow-up echocardiogram. Continue to monitor renal function and urine output.
[2022-06-26 11:24] LABS: Glucose,Whole Blood 199 mg/dL (70-110)
--- NOTE | 2022-06-26 13:04 | P.PN ---
Subjective Progress Note Date: 06/26/22 HISTORY OF PRESENT ILLNESS: This is a 56-year-old male who is admitted to the hospital secondary to congestive heart failure. Patient examined this morning at the bedside. Patient denies chest pain or pressure. He continues to report shortness of breath. He remains on IV Lasix. He reports improvement in his lower extremity edema. Vital signs are stable. PHYSICAL EXAM: VITAL SIGNS: Reviewed. GENERAL: Well-developed in no acute distress. NECK: Supple. No JVD or thyromegaly LUNGS: Respirations even and unlabored. Lungs essentially clear to auscultation bilaterally, diminished. HEART: Regular rate and rhythm. S1 and S2 heard. EXTREMITIES: Normal range of motion. No clubbing or cyanosis. Peripheral pulses intact. Bilateral lower extremity edema extending up into the thighs ASSESSMENT: Shortness of breath Acute on chronic heart failure, type unknown, echo pending Acute hypoxic respiratory failure requiring supplemental oxygen History of CVA in 2019 Diabetes Hypertension Normal coronary arteries, per cardiac catheterization in 2019 Hyperkalemia, resolved Acute kidney injury PLAN: 2-D echo ordered. Await results Continue IV Lasix Daily weights, accurate I&O, and monitoring of kidney function Discontinue Norvasc Continue additional cardiac medications Further recommendations pending patient's course Nurse practitioner note has been reviewed by physician. Signing provider agrees with the documented findings, assessment, and plan of care. Objective - Vital Signs Vital signs: Vital Signs Temp 97.7 F 06/26/22 07:23 Pulse 80 06/26/22 12:51 Resp 17 06/26/22 07:23 BP 129/74 06/26/22 07:23 Pulse Ox 91 L 06/26/22 07:23 FiO2 Intake & Output 06/25/22 06/26/22 06/26/22 18:59 06:59 18:59 Weight 151.2 kg Other: Voiding Method Toilet Urinal # Voids 2 2 - Labs CBC & Chem 7: 06/26/22 05:56 06/26/22 05:56 Labs: Abnormal Lab Results - Last 24 Hours (Table) 06/25/22 06/25/22 06/25/22 Range/Units 07:19 16:54 20:42 WBC (4.50-10.00) X 10*3/uL Hgb 12.9 L (13.0-17.0) g/dL MCH 26.3 L (27.0-32.0) pg MCHC 29.3 L (32.0-37.0) g/dL RDW 14.9 H (11.5-14.5) % Lymphocytes # 0.57 L (0.90-5.00) X 10*3/uL Chloride (96-109) mmol/L Carbon Dioxide (20.0-27.5) mmol/L BUN (9.0-27.0) mg/dL Est GFR (CKD-EPI)AfAm (60.0-200.0) Est GFR (CKD-EPI)NonAf (60.0-200.0) Glucose (70-110) mg/dL POC Glucose (mg/dL) 124 H 125 H (70-110) mg/dL AST (14-35) U/L Albumin (3.8-4.9) g/dL Albumin/Globulin Ratio (1.60-3.17) g/dL 06/26/22 06/26/22 06/26/22 Range/Units 05:56 05:56 06:10 WBC 4.46 L (4.50-10.00) X 10*3/uL Hgb (13.0-17.0) g/dL MCH 26.3 L (27.0-32.0) pg MCHC 28.9 L (32.0-37.0) g/dL RDW 14.6 H (11.5-14.5) % Lymphocytes # 0.62 L (0.90-5.00) X 10*3/uL Chloride 93 L (96-109) mmol/L Carbon Dioxide 37.3 H (20.0-27.5) mmol/L BUN 27.8 H (9.0-27.0) mg/dL Est GFR (CKD-EPI)AfAm 58.6 L (60.0-200.0) Est GFR (CKD-EPI)NonAf 50.6 L (60.0-200.0) Glucose 150 H (70-110) mg/dL POC Glucose (mg/dL) 141 H (70-110) mg/dL AST 11 L (14-35) U/L Albumin 3.7 L (3.8-4.9) g/dL Albumin/Globulin Ratio 1.12 L (1.60-3.17) g/dL 11/21/22 Range/Units 11:22 WBC (4.50-10.00) X 10*3/uL Hgb (13.0-17.0) g/dL MCH (27.0-32.0) pg MCHC (32.0-37.0) g/dL RDW (11.5-14.5) % Lymphocytes # (0.90-5.00) X 10*3/uL Chloride (96-109) mmol/L Carbon Dioxide (20.0-27.5) mmol/L BUN (9.0-27.0) mg/dL Est GFR (CKD-EPI)AfAm (60.0-200.0) Est GFR (CKD-EPI)NonAf (60.0-200.0) Glucose (70-110) mg/dL POC Glucose (mg/dL) 199 H (70-110) mg/dL AST (14-35) U/L Albumin (3.8-4.9) g/dL Albumin/Globulin Ratio (1.60-3.17) g/dL Microbiology - Last 24 Hours (Table) 06/24/22 08:14 Blood Culture - Preliminary Blood No Growth after 48 hours 06/24/22 08:14 Blood Culture - Preliminary Blood No Growth after 48 hours
[2022-06-26 16:42] LABS: Glucose,Whole Blood 130 mg/dL (70-110)
--- NOTE | 2022-06-26 16:49 | CA ---
Transthoracic Echo Report Name: Edgar Holloway Age: 56 Gender: M : 1965 Exam Date: 06/26/2022 10:52 Exam Location: [facility] [facility] Ht (in): 65 Wt (lb): 335 Ordering Physician: Aleksandra Armstrong Attending/Referring Phys: Tiger Machine Operator Alexandra Andujar RDCS Procedure CPT: Indications: chf Cardiac Hx: Technical Quality: Very technically difficult study Contrast 1: Lumason Total Dose (mL): 4 Contrast 2: Total Dose (mL): MEASUREMENTS (Male / Female) Normal Values FINDINGS Left Ventricle Normal left ventricular wall motion. Left ventricular ejection fraction is estimated at 50-55%. Right Ventricle Normal right ventricular size and function. Right Atrium Normal right atrial size. Left Atrium Left atrium not well visualized. Mitral Valve Structurally normal mitral valve. Mild mitral regurgitation. Aortic Valve Aortic valve sclerosis. Tricuspid Valve Structurally normal tricuspid valve. Pulmonic Valve Pulmonic valve not well visualized. Pericardium Echo free space anterior to the right ventricle likely represents a fat pad. Aorta CONCLUSIONS Left ventricular ejection fraction 50-55% Mild mitral regurgitation No aortic stenosis No pericardial effusion Previewed by: Dr. Fermin Xavier DO (Electronically Signed) Final Date: 26 June 2022 16:48
[2022-06-26 20:07] LABS: Glucose,Whole Blood 187 mg/dL (70-110)
[2022-06-26] MEDS: traZODone HCL 50 MG TAB PO SCH (21:46)
[2022-06-26] MEDS: AMITRIPTYLINE HCL 10 MG TAB PO SCH (21:47)
[2022-06-27] MEDS: FUROSEMIDE 10 MG/ML 4 ML VIAL IV SCH ×3 (00:48→17:59)
--- NOTE | 2022-06-27 03:59 | PN ---
PROGRESS NOTE DATE OF SERVICE: 06/26/2022 SUBJECTIVE: This 56-year-old gentleman with CHF acute exacerbation, still on IV diuretics, patient is feeling better. Chest x-ray also showed some improvement. No chest pain, no palpitation. PHYSICAL EXAMINATION: VITAL SIGNS: Pulse 74, blood pressure 129/74, respirations 17. CHEST: A few scattered rhonchi, no crackles. CARDIOVASCULAR: S1, S2. ABDOMEN: Soft. LEGS: Bilateral leg edema. LABORATORY DATA: Reviewed. ASSESSMENT: 1. Congestive heart failure acute exacerbation with acute on chronic diastolic dysfunction, on IV Lasix. 2. Hyperkalemia. 3. History of cerebrovascular accident, transient ischemic attack. 4. Diabetes mellitus type 2. 5. History of motion sickness. RECOMMENDATIONS: Recommended to continue current management, continue symptomatic treatment. Continue with IV diuretics. Monitor closely. Fluid restriction 1200 mL for 24 hours. Closely follow with multiple consultants. Prognosis guarded. Further recommendations to follow. MMTERESAL / JEFFREYN: [id number] /
[2022-06-27 06:26] LABS: Glucose,Whole Blood 152 mg/dL (70-110)
[2022-06-27] MEDS: PANTOPRAZOLE 40 MG TABLET PO SCH (07:04)
[2022-06-27] MEDS: SYMBICORT 80-4.5 MCG INHALER INHALATION SCH ×2 (07:25→20:39)
[2022-06-27] MEDS: IPRATROPIUM 0.5 MG/2.5 ML NEBU INHALATION SCH ×4 (07:25→20:39)
[2022-06-27 07:44] LABS: African American GFR (CKD) 66 (>60 ml/min/1.73 sqM); Anion Gap 6 mmol/L; Blood Urea Nitrogen 32 mg/dL (9-20); Calcium 7.7 mg/dL (8.4-10.2); Chloride 94 mmol/L (98-107); Glucose 134 mg/dL (74-99); Magnesium 1.9 mg/dL (1.6-2.3); Non-African American GFR(CKD) 57 (>60 ml/min/1.73 sqM); Potassium 3.8 mmol/L (3.5-5.1); Sodium 142 mmol/L (137-145)
[2022-06-27 08:00] LABS: Carbon Dioxide 42 mmol/L (22-30)
[2022-06-27] MEDS: METOPROLOL SUCCINATE (ER) 50 MG TAB.ER.24H PO SCH (08:07)
[2022-06-27] MEDS: HEPARIN SODIUM,PORCINE/PF 5,000 UNIT/0.5 ML SYRINGE SQ SCH ×2 (08:07→21:42)
[2022-06-27] MEDS: ASPIRIN 81 MG PO SCH (08:07)
[2022-06-27] MEDS: lisinopriL 20 MG TAB PO SCH (08:07)
[2022-06-27] MEDS: PREGABALIN 75 MG CAP PO SCH ×2 (08:07→21:41)
--- NOTE | 2022-06-27 10:54 | P.PN ---
Subjective Progress Note Date: 06/27/22 HISTORY OF PRESENT ILLNESS: This is a 56-year-old male who is admitted to the hospital secondary to congestive heart failure. Patient examined this morning at the bedside. Patient denies chest pain or pressure. He continues to report shortness of breath. He remains on IV Lasix. He reports improvement in his lower extremity edema. Vital signs are stable. 06/27/2022 Patient examined this morning at the bedside. Patient denies chest pain or pressure. He reports improvement in his shortness of breath. Patient remains on IV Lasix. BUN 32. Creatinine 1.36. Carbon dioxide 42. Patient does not have accurate intake and output documented. Patient remains on 15 L high flow nasal cannula. 2-D echo completed revealing ejection fraction 50-55% with mild mitral regurgitation. PHYSICAL EXAM: VITAL SIGNS: Reviewed. GENERAL: Well-developed in no acute distress. NECK: Supple. No JVD or thyromegaly LUNGS: Respirations even and unlabored. Lungs essentially clear to auscultation bilaterally, diminished. HEART: Regular rate and rhythm. S1 and S2 heard. EXTREMITIES: Normal range of motion. No clubbing or cyanosis. Peripheral pulses intact. Bilateral lower extremity edema extending up into the thighs ASSESSMENT: Shortness of breath Acute on chronic heart failure with preserved ejection fraction Acute hypoxic respiratory failure requiring supplemental oxygen History of CVA in 2019 Diabetes Hypertension Normal coronary arteries, per cardiac catheterization in 2019 Hyperkalemia, resolved Acute kidney injury PLAN: Continue IV Lasix Add Diamox Daily weights, accurate I&O, and monitoring of kidney function Continue additional cardiac medications Further recommendations pending patient's course Nurse practitioner note has been reviewed by physician. Signing provider agrees with the documented findings, assessment, and plan of care. Objective - Vital Signs Vital signs: Vital Signs Temp 97.4 F L 06/27/22 07:19 Pulse 84 06/27/22 07:38 Resp 18 06/27/22 07:19 BP 108/77 06/27/22 07:19 Pulse Ox 90 L 06/27/22 07:19 FiO2 Intake & Output 06/26/22 06/27/22 06/27/22 18:59 06:59 18:59 Intake Total 120 Balance 120 Weight 149.8 kg Intake: Oral 120 Other: Voiding Method Toilet Urinal - Labs CBC & Chem 7: 06/26/22 05:56 06/27/22 06:31 Labs: Abnormal Lab Results - Last 24 Hours (Table) 06/26/22 06/26/22 06/26/22 Range/Units : 16:41 20:05 Chloride (98-107) mmol/L Carbon Dioxide (22-30) mmol/L BUN (9-20) mg/dL Creatinine (0.66-1.25) mg/dL Glucose (74-99) mg/dL POC Glucose (mg/dL) 199 H 130 H 187 H (70-110) mg/dL Calcium (8.4-10.2) mg/dL 06/27/22 06/27/22 Range/Units 06:25 06:31 Chloride 94 L (98-107) mmol/L Carbon Dioxide 42 H* (22-30) mmol/L BUN 32 H (9-20) mg/dL Creatinine 1.36 H (0.66-1.25) mg/dL Glucose 134 H (74-99) mg/dL POC Glucose (mg/dL) 152 H (70-110) mg/dL Calcium 7.7 L (8.4-10.2) mg/dL Microbiology - Last 24 Hours (Table) 06/24/22 08:14 Blood Culture - Preliminary Blood No Growth after 72 hours 06/24/22 08:14 Blood Culture - Preliminary Blood No Growth after 72 hours
[2022-06-27] MEDS: acetaZOLAMIDE 250 MG TAB PO SCH ×2 (10:55→21:42)
--- NOTE | 2022-06-27 11:17 | P.PN ---
Subjective Patient is seen in follow-up for acute kidney injury. Renal function a little better. On IV Lasix. Good urine output. No chest pain or shortness of breath. On high flow nasal cannula. Blood pressure stable this morning. Vital signs are stable. General: Awake. No acute distress. HEENT: Head exam is unremarkable. On nasal cannula. LUNGS: Breath sounds decreased. HEART: Rate and Rhythm are regular. ABDOMEN: Soft, obese. EXTREMITITES: 1+ edema. Objective - Vital Signs Vital signs: Vital Signs Temp 97.4 F L 06/27/22 07:19 Pulse 80 06/27/22 11:05 Resp 18 06/27/22 07:19 BP 108/77 06/27/22 07:19 Pulse Ox 90 L 06/27/22 07:19 FiO2 Intake & Output 06/26/22 06/27/22 06/27/22 18:59 06:59 18:59 Intake Total 120 Balance 120 Weight 149.8 kg Intake: Oral 120 Other: Voiding Method Toilet Urinal - Labs CBC & Chem 7: 06/26/22 05:56 06/27/22 06:31 Labs: Abnormal Lab Results - Last 24 Hours (Table) 06/26/22 06/26/22 06/26/22 Range/Units 11: 16:41 20:05 Chloride (98-107) mmol/L Carbon Dioxide (22-30) mmol/L BUN (9-20) mg/dL Creatinine (0.66-1.25) mg/dL Glucose (74-99) mg/dL POC Glucose (mg/dL) 199 H 130 H 187 H (70-110) mg/dL Calcium (8.4-10.2) mg/dL 06/27/22 06/27/22 Range/Units 06:25 06:31 Chloride 94 L (98-107) mmol/L Carbon Dioxide 42 H* (22-30) mmol/L BUN 32 H (9-20) mg/dL Creatinine 1.36 H (0.66-1.25) mg/dL Glucose 134 H (74-99) mg/dL POC Glucose (mg/dL) 152 H (70-110) mg/dL Calcium 7.7 L (8.4-10.2) mg/dL Microbiology - Last 24 Hours (Table) 06/24/22 08:14 Blood Culture - Preliminary Blood No Growth after 72 hours 06/24/22 08:14 Blood Culture - Preliminary Blood No Growth after 72 hours Assessment and Plan Plan: Assessment: 1. Acute kidney injury mostly prerenal secondary to cardiorenal syndrome. Renal function a little better - creatinine 1.36. No hydronephrosis noted on kidney ultrasound. UA benign. 2. Volume overload. Improving with diuresis. 3. Hyperkalemia secondary to acute kidney injury and lisinopril. Improved with medical management. 4. Diabetes mellitus. 5. Metabolic alkalosis from diuresis. 6. Acute on chronic diastolic CHF. Plan: Maintain IV Lasix. Diamox added by cardiology. Low-salt diet. 1500 mL fluid restriction. Avoid nephrotoxins. Continue to monitor renal function and urine output.
[2022-06-27 11:27] LABS: Glucose,Whole Blood 208 mg/dL (70-110)
[2022-06-27 13:54] LABS: ABG Base Excess 16.8 mmol/L; ABG HCO3 39 mmol/L (21-25); ABG PCO2 44 mmHg (35-45); ABG PO2 134 mmHg (83-108); ABG TCO2 40 mmol/L (19-24); Allen Test Performed? Yes
[2022-06-27 13:59] LABS: ABG PH 7.56 (7.35-7.45)
[2022-06-27 16:36] LABS: Glucose,Whole Blood 160 mg/dL (70-110)
--- NOTE | 2022-06-27 16:41 | CT ---
EXAMINATION TYPE: CT chest wo con CT DLP: 1150.6 mGycm, Automated exposure control for dose reduction was used. DATE OF EXAM: 06/27/2022 4:26 PM COMPARISON: Chest radiograph 06/26/2022. CLINICAL INDICATION:Male, 56 years old with history of Hypoxemia; TECHNIQUE: Multiple axial images were obtained through the chest without IV contrast. Lack of IV or o ral contrast limits evaluation of solid and hollow organ viscera. FINDINGS: LUNGS/ PLEURA: Bibasilar patchy linear consolidation with air bronchograms. Punctate calcified granul remi within the left lower lobe. No pneumothorax or effusion. AIRWAY: Patent and unremarkable.. HEART: The heart is mildly increased in size.. No pericardial effusion. Trace coronary arterial calci fications. MEDIASTINUM: Mildly enlarged subcarinal lymph node measuring up to 1.4 cm short axis. VASCULATURE: No aortic aneurysm. MUSCULOSKELETAL: No acute osseous abnormalities. No aggressive osseous lesion. Mild multilevel degene rative changes of the visualized spine with disc space narrowing, endplate sclerosis, vacuum disease, and anterior osteophyte formation. SOFT TISSUES/LYMPH NODES: Unremarkable. LOWER NECK: No significant findings. UPPER ABDOMEN: No significant findings. IMPRESSION: 1. Patchy bibasilar linear consolidation with air bronchograms suggests atelectasis however superimpo sed infectious process is not excluded. 2. Mildly enlarged subcarinal lymph node, likely reactive to #1. 3. Mild cardiomegaly.
--- NOTE | 2022-06-27 16:58 | P.CNPUL ---
History of Present Illness Consult date: 06/27/22 Reason for consult: dyspnea, hypoxemia History of present illness: This is a 56-year-old male patient, morbidly obese, who was recently admitted to [facility] for shortness of breath and he was discharged on oxygen at 3 L/m nasal cannula. The patient was admitted to our hospital because of worsening shortness of breath and increased in edema in lower extremities and abdominal distention and swelling. He was diagnosed having CHF with preserved LV function and the patient was given diuretics. During the course of his illness, creatinine went up to 1.5 and it subsequently improved and the most recent creatinine from today is at 1.36 and the patient is being given diuretics. The patient is in ex-smoker. He smoked marijuana and cigars in the past. He has not smoked tobacco on a regular basis. He is morbidly obese. He has a typical features of obstructive sleep apnea although this has not been pursued and has not been diagnosed and the patient not receiving any treatment. He has no angina. No palpitation. No significant cough or congestion. He has exertional dyspnea and his overall shortness of breath and progressively getting worse over time. He is currently on Lasix 40 mg IV every 8 hours. He is also on Diamox 250 mg by mouth twice a day. He is on oxygen at 15 L/m nasal cannula. Chest x-ray showed cardiomegaly and atelectatic change in lung bases and possibly small bilateral pleural effusions. Overall fluid balance over the past 24 hours has been -5.2 L. No previous history of DVT and pulmonary embolism. The patient states that he was given a ultrasound Doppler of the lower extremity at [facility] and the results were negative. The patient has no signs of any CO2 narcosis at this point in time. He is hemodynamically stable. On his blood work, his proBNP level was 1620, troponins were negative, his Covid 19 testing was negative and the patient has not received any vaccination for Covid 19. Liver function tests are essentially within normal limits. His total albumin is at 3.7 with a total protein of 6.8. UA is negative for any proteinuria. Echo of the heart shows a preserved LV function with an ejection fraction of 50-55%. No significant valvular abnormalities. Right sided cardiac structures were not accurately evaluated Review of Systems CONSTITUTIONAL: Denies fever or chills. Chronic hypersomnia, sleepiness, fragmented sleep, edema lower extremities, generalized weakness, difficulty with mobility and the patient admits to be moving around with help of a walker. EYES: Negative for vision changes ENT: Negative for hearing loss CARDIOVASCULAR: Denies chest pain, shortness of breath, diaphoresis, orthopnea, PND or palpitations. VASCULAR: edema RESPIRATORY: Denies cough. Complains of shortness of breath GASTROINTESTINAL: Denies abdominal pain, diarrhea, constipation, nausea or vomiting. MUSCULOSKELETAL: Denies myalgias. NEUROLOGIC: Denies numbness, tingling, headache or weakness. ENDOCRINE: Denies fatigue, weight change, polydipsia or polyurina. GENITOURINARY: Denies burning, hematuria or urgency with micturation. HEMATOLOGIC: Denies history of anemia or bleeding. DERMATOLOGY: Denies rash or skin sores PSYCH: Negative for depression or hallucinations. Past Medical History Past Medical History: Heart Failure, CVA/TIA, Diabetes Mellitus, Renal Disease Additional Past Medical History / Comment(s): HX CVA MAY 2019 AFFECTED LEFT SIDE - STILL HAS LEFT TOES NUMB AND LEFT HAND WEAKNESS History of Any Multi-Drug Resistant Organisms: None Reported Past Surgical History: Heart Catheterization Past Anesthesia/Blood Transfusion Reactions: Motion Sickness Additional Past Anesthesia/Blood Transfusion Reaction / Comment(s): HAS NEVER RECEIVED ANESTHESIA Past Psychological History: No Psychological Hx Reported Smoking Status: Former smoker Past Alcohol Use History: None Reported Additional Past Alcohol Use History / Comment(s): QUIT SMOKING MAY 2019, SMOKED 2 CIGARS DAILY FOR 2 YEARS. Past Drug Use History: None Reported - Past Family History Mother Family Medical History: No Reported History Medications and Allergies Home Medications Medication Instructions Recorded Confirmed Type Aspirin [Adult Low Dose Aspirin EC] 81 mg PO DAILY 12/10/18 06/24/22 History Pioglitazone [Actos] 30 mg PO DAILY 12/10/18 06/24/22 History amLODIPine [Norvasc] 10 mg PO DAILY 12/10/18 06/24/22 History metFORMIN HCL [Glucophage] 1,000 mg PO BID-W/MEALS 12/10/18 06/24/22 History lisinopriL [Zestril] 20 mg PO DAILY 12/23/18 06/24/22 History Albuterol Inhaler [Ventolin Hfa 2 puff INHALATION RT-QID PRN 06/24/22 06/24/22 History Inhaler] Amitriptyline HCl [Elavil] 10 mg PO HS 06/24/22 06/24/22 History Fluticasone/Umeclidin/Vilanter 1 puff INHALATION RT-DAILY 06/24/22 06/24/22 History [Trelegy Ellipta 100-62.5-25] Furosemide [Lasix] 20 mg PO DAILY 06/24/22 06/24/22 History Metoprolol Succinate (ER) [Toprol 25 mg PO DAILY 06/24/22 06/24/22 History Xl] Pregabalin [Lyrica] 150 mg PO BID 06/24/22 06/24/22 History traZODone HCL [Desyrel] 25 - 50 mg PO HS 06/24/22 06/24/22 History Allergies Allergy/AdvReac Type Severity Reaction Status Date / Time atorvastatin AdvReac Unknown stomach Verified 06/24/22 10:44 pain Physical Exam Vitals: Vital Signs Temp Pulse Pulse Resp BP Pulse Ox 06/27/22 11:18 84 06/27/22 11:05 80 06/27/22 07:38 84 06/27/22 07:25 84 06/27/22 07:19 97.4 F L 87 18 108/77 90 L 06/27/22 02:20 83 06/27/22 02:13 82 06/27/22 02:00 97.3 F L 79 24 102/65 84 L 06/26/22 21:47 74 20 06/26/22 20:01 76 06/26/22 19:47 75 06/26/22 19:42 97.6 F 74 20 111/63 90 L 06/26/22 16:28 76 06/26/22 16:17 76 06/26/22 14:00 97.8 F 75 17 112/64 91 L Intake and Output 06/26/22 06/27/22 06/27/22 22:59 06:59 14:59 Intake Total 120 Balance 120 Intake: Oral 120 Other: Voiding Method Toilet Urinal Weight 149.8 kg Morbidly obese, comfortable no acute distress, BMI of 55, currently on 15 O2 nasal cannula Head exam was generally normal. There was no scleral icterus or corneal arcus. Mucous membranes were moist. Neck was supple and without jugular venous distension, thyromegaly, or carotid bruits. Carotids were easily palpable bilaterally. There was no adenopathy. Mallampati class IV with significant crowding of the posterior oropharynx Lungs sounds are showing diminished breath sounds bilaterally in the lung bases along with some bibasilar crackles Heart sounds are distant, regular, no significant murmurs appreciated Abdomen is morbidly obese and organs cannot be accurately palpated. No direct tenderness abundance or guarding Extremities revealed +1 pitting edema, no cyanosis or clubbing Examination of the skin revealed no evidence of significant rashes, suspicious appearing nevi or other concerning lesions. Neurologically, the patient is awake and alert and the patient does not have any focal neurological deficit. Cranial nerves are essentially intact. Results - Laboratory Findings CBC and BMP: 06/26/22 05:56 06/27/22 06:31 ABG WBC 4.46 X 10*3/uL (4.50-10.00) L 06/26/22 05:56 RBC 5.09 X 10*6/uL (4.40-5.60) 06/26/22 05:56 Hgb 13.4 g/dL (13.0-17.0) 06/26/22 05:56 Hct 46.3 % (39.6-50.0) 06/26/22 05:56 MCV 91.0 fL (80.0-97.0) 06/26/22 05:56 MCH 26.3 pg (27.0-32.0) L 06/26/22 05:56 MCHC 28.9 g/dL (32.0-37.0) L 06/26/22 05:56 RDW 14.6 % (11.5-14.5) H 06/26/22 05:56 Plt Count 162 X 10*3/uL (140-440) 06/26/22 05:56 Plt Count Comment Adequate 06/25/22 07:19 MPV 10.5 fL (9.5-12.2) 06/26/22 05:56 Immature Gran % (Auto) 0.2 % 06/26/22 05:56 Absolute Nucleated RBC 0 X 10*3/uL (0.00-0.00) 06/26/22 05:56 Neutrophils % 74.7 % 06/26/22 05:56 Lymphocytes % 13.9 % 06/26/22 05:56 Monocytes % 7.4 % 06/26/22 05:56 Eosinophils % 3.1 % 06/26/22 05:56 Basophils % 0.7 % 06/26/22 05:56 Immature Gran # 0.01 X 10*3/uL (0.00-0.04) 06/26/22 05:56 Neutrophils # 3.33 X 10*3/uL (1.80-7.70) 06/26/22 05:56 Lymphocytes # 0.62 X 10*3/uL (0.90-5.00) L 06/26/22 05:56 Monocytes # 0.33 X 10*3/uL (0.20-1.00) 06/26/22 05:56 Eosinophils # 0.14 X 10*3/uL (0.04-0.35) 06/26/22 05:56 Basophils # 0.03 X 10*3/uL (0.00-0.10) 06/26/22 05:56 NRBC/100 WBC Diff 0 /100 WBCS (0.0-0.0) 06/26/22 05:56 RBC Morphology NORMAL 06/25/22 07:19 Hypochromasia Marked 06/24/22 08:14 PT 10.6 sec (9.0-12.0) 06/24/22 08:14 INR 1.0 (<1.2) 06/24/22 08:14 APTT 22.8 sec (22.0-30.0) 06/24/22 08:14 Sodium 142 mmol/L (137-145) 06/27/22 06:31 Potassium 3.8 mmol/L (3.5-5.1) 06/27/22 06:31 Chloride 94 mmol/L (98-107) L 06/27/22 06:31 Carbon Dioxide 42 mmol/L (22-30) H* 06/27/22 06:31 Anion Gap 6 mmol/L 06/27/22 06:31 BUN 32 mg/dL (9-20) H 06/27/22 06:31 Creatinine 1.36 mg/dL (0.66-1.25) H 06/27/22 06:31 Est GFR (CKD-EPI)AfAm 66 (>60 ml/min/1.73 sqM) 06/27/22 06:31 Est GFR (CKD-EPI)NonAf 57 (>60 ml/min/1.73 sqM) 06/27/22 06:31 BUN/Creatinine Ratio 18.53 Ratio (12.00-20.00) 06/26/22 05:56 Glucose 134 mg/dL (74-99) H 06/27/22 06:31 POC Glucose (mg/dL) 208 mg/dL (70-110) H 06/27/22 11:25 POC Glu [employer] ID Ling Pelaez 06/27/22 11:25 Plasma Lactic Acid Saul 0.9 mmol/L (0.7-2.0) 06/24/22 08:14 Calcium 7.7 mg/dL (8.4-10.2) L 06/27/22 06:31 Magnesium 1.9 mg/dL (1.6-2.3) 06/27/22 06:31 Total Bilirubin 1.20 mg/dL (0.30-1.20) 06/26/22 05:56 AST 11 U/L (14-35) L 06/26/22 05:56 ALT 14 U/L (10-49) 06/26/22 05:56 Alkaline Phosphatase 93 U/L (41-126) 06/26/22 05:56 Troponin I <0.012 ng/mL (0.000-0.034) 06/24/22 08:14 NT-Pro-B Natriuret Pep 1620 pg/mL 06/24/22 08:14 Total Protein 7.0 g/dL (6.2-8.2) 06/26/22 05:56 Albumin 3.7 g/dL (3.8-4.9) L 06/26/22 05:56 Globulin 3.3 g/dL (1.6-3.3) 06/26/22 05:56 Albumin/Globulin Ratio 1.12 g/dL (1.60-3.17) L 06/26/22 05:56 Urine Color Colorless 06/25/22 11:35 Urine Appearance Clear (Clear) 06/25/22 11:35 Urine pH 7.5 (5.0-8.0) 06/25/22 11:35 Ur Specific Grace 1.006 (1.001-1.035) 06/25/22 11:35 Urine Protein Negative (Negative) 06/25/22 11:35 Urine Glucose (UA) Negative (Negative) 06/25/22 11:35 Urine Ketones Negative (Negative) 06/25/22 11:35 Urine Blood Negative (Negative) 06/25/22 11:35 Urine Nitrite Negative (Negative) 06/25/22 11:35 Urine Bilirubin Negative (Negative) 06/25/22 11:35 Urine Urobilinogen <2.0 mg/dL (<2.0) 06/25/22 11:35 Ur Leukocyte Esterase Negative (Negative) 06/25/22 11:35 PT/INR, D-dimer PT 10.6 sec (9.0-12.0) 06/24/22 08:14 INR 1.0 (<1.2) 06/24/22 08:14 Abnormal lab findings: Abnormal Labs 06/24/22 06/24/22 06/24/22 08:14 08:14 09:25 WBC Hgb MCH MCHC 30.3 L RDW Lymphocytes # 0.5 L Potassium 6.6 H* 6.3 H* Chloride Carbon Dioxide 35 H Anion Gap BUN 35 H Creatinine 1.34 H Est GFR (CKD-EPI)AfAm Est GFR (CKD-EPI)NonAf Glucose 177 H POC Glucose (mg/dL) Calcium 8.2 L AST Albumin Albumin/Globulin Ratio 06/24/22 06/24/22 06/24/22 11:19 13:03 16:40 WBC Hgb MCH MCHC RDW Lymphocytes # Potassium 5.6 H Chloride Carbon Dioxide Anion Gap BUN Creatinine Est GFR (CKD-EPI)AfAm Est GFR (CKD-EPI)NonAf Glucose POC Glucose (mg/dL) 126 H 115 H Calcium AST Albumin Albumin/Globulin Ratio 06/24/22 06/25/22 06/25/22 20:27 05:45 07:19 WBC Hgb 12.9 L MCH 26.3 L MCHC 29.3 L RDW 14.9 H Lymphocytes # 0.57 L Potassium Chloride Carbon Dioxide Anion Gap BUN Creatinine Est GFR (CKD-EPI)AfAm Est GFR (CKD-EPI)NonAf Glucose POC Glucose (mg/dL) 131 H 151 H Calcium AST Albumin Albumin/Globulin Ratio 06/25/22 06/25/22 06/25/22 07:19 11:33 16:54 WBC Hgb MCH MCHC RDW Lymphocytes # Potassium Chloride 92 L Carbon Dioxide 37.2 H Anion Gap 9.80 L BUN 28.3 H Creatinine Est GFR (CKD-EPI)AfAm 58.6 L Est GFR (CKD-EPI)NonAf 50.6 L Glucose 124 H POC Glucose (mg/dL) 163 H 124 H Calcium AST Albumin Albumin/Globulin Ratio 06/25/22 06/26/22 06/26/22 20:42 05:56 05:56 WBC 4.46 L Hgb MCH 26.3 L MCHC 28.9 L RDW 14.6 H Lymphocytes # 0.62 L Potassium Chloride 93 L Carbon Dioxide 37.3 H Anion Gap BUN 27.8 H Creatinine Est GFR (CKD-EPI)AfAm 58.6 L Est GFR (CKD-EPI)NonAf 50.6 L Glucose 150 H POC Glucose (mg/dL) 125 H Calcium AST 11 L Albumin 3.7 L Albumin/Globulin Ratio 1.12 L 06/26/22 06/26/22 06/26/22 06:10 11:22 16:41 WBC Hgb MCH MCHC RDW Lymphocytes # Potassium Chloride Carbon Dioxide Anion Gap BUN Creatinine Est GFR (CKD-EPI)AfAm Est GFR (CKD-EPI)NonAf Glucose POC Glucose (mg/dL) 141 H 199 H 130 H Calcium AST Albumin Albumin/Globulin Ratio 06/26/22 06/27/22 06/27/22 20:05 06:25 06:31 WBC Hgb MCH MCHC RDW Lymphocytes # Potassium Chloride 94 L Carbon Dioxide 42 H* Anion Gap BUN 32 H Creatinine 1.36 H Est GFR (CKD-EPI)AfAm Est GFR (CKD-EPI)NonAf Glucose 134 H POC Glucose (mg/dL) 187 H 152 H Calcium 7.7 L AST Albumin Albumin/Globulin Ratio 06/27/22 11:25 WBC Hgb MCH MCHC RDW Lymphocytes # Potassium Chloride Carbon Dioxide Anion Gap BUN Creatinine Est GFR (CKD-EPI)AfAm Est GFR (CKD-EPI)NonAf Glucose POC Glucose (mg/dL) 208 H Calcium AST Albumin Albumin/Globulin Ratio - Diagnostic Findings Chest x-ray: image reviewed Assessment and Plan Plan: Acute hypoxic respiratory failure. The patient was initially hospitalized at [facility] for almost a week and following that he was discharged on oxygen to be readmitted to our hospital. The patient's oxygen patient is to worsen the patient is currently on 50 L of oxygen by nasal cannula. There is evidence of fluid overload and edema consistent with CHF/diastolic dysfunction/preserved LV function. The patient may have also an underlying right-sided heart failure due to his chronic hypoxic/hypercapnic respiratory fa ilure and the patient has increased edema and third spacing. Possibility of underlying pneumonia and possibility of underlying atelectasis in the lung bases under good into the patient's shortness of breath and hypoxemia cannot be completely excluded. Based on that, a CAT scan of the chest will be ordered to further investigate Chronic hypoxic respiratory failure Morbid obesity with a BMI 55 obstructive sleep apnea with possibility of an underlying obesity hypoventilation syndrome on clinical grounds. COPD, maintain on Trelegy Ellipta on outpatient basis Hypertension Diabetes mellitus Chronic lower extremity edema Chronic stage III kidney disease versus an acute kidney injury History of CVA back in 2019 and the patient walks without a walker Normal coronaries based on the cardiac catheterization from 2019 plan Obtain a noncontrast CAT scan of the chest to evaluate hypoxemia. Pulmonary embolism is doubtful in my opinion. I suspect atelectasis/effusion in the lung bases and possibly some underlying pneumonia. Continue oxygen therapy and wean down FiO2 to maintain a saturation above 90% Obtain a blood gas Continue Lasix 40 mg IV every 8 hours Will need a sleep study on outpatient basis and most likely will need a device either the form of CPAP or BiPAP Continue all medications Obtain records from [facility] Monitor renal function We'll follow
[2022-06-27 20:06] LABS: Glucose,Whole Blood 172 mg/dL (70-110)
[2022-06-27] MEDS: traZODone HCL 50 MG TAB PO SCH (21:41)
[2022-06-27] MEDS: AMITRIPTYLINE HCL 10 MG TAB PO SCH (21:42)
[2022-06-28] MEDS: FUROSEMIDE 10 MG/ML 4 ML VIAL IV SCH ×3 (01:12→17:30)
--- NOTE | 2022-06-28 02:52 | PN ---
PROGRESS NOTE DATE OF SERVICE: 06/27/2022 SUBJECTIVE: This 56-year-old gentleman, who was admitted with CHF acute exacerbation, is improving volume status desir, but the patient remains to be hypoxic, possibly contributed by obesity hypoventilation syndrome. No chest pain. No palpitation. No fever. The patient is slightly hypercarbic also. OBJECTIVE: VITAL SIGNS: Pulse is 80, blood pressure is 118/77, respirations 18. CHEST: Few scattered rhonchi and crackles. ABDOMEN: Soft, obese. LEGS: No edema. NERVOUS SYSTEM: Nonfocal. LABORATORY DATA: Creatinine is 1.36. ASSESSMENT: 1. Congestive heart failure acute exacerbation with acute on chronic diastolic dysfunction, on IV Lasix. 2. Possible obesity hypoventilation syndrome. 3. Hyperkalemia. 4. History of cerebrovascular accident, transient ischemic attack. 5. Diabetes mellitus, type 2. 6. History of motion sickness. RECOMMENDATIONS: I recommend to continue current management, continue with diuretics. I would also recommend an ABG and Pulmonary consultation. Guarded prognosis because of multiple complex medical issues, and further recommendations to follow. Closely follow with Nephrology and Cardiology. MMODL / IJN: [id number] /
[2022-06-28 06:06] LABS: Glucose,Whole Blood 152 mg/dL (70-110)
[2022-06-28] MEDS: PANTOPRAZOLE 40 MG TABLET PO SCH (06:48)
[2022-06-28] MEDS: IPRATROPIUM 0.5 MG/2.5 ML NEBU INHALATION SCH ×4 (07:49→19:52)
[2022-06-28] MEDS: SYMBICORT 80-4.5 MCG INHALER INHALATION SCH ×2 (07:49→19:52)
[2022-06-28 09:25] LABS: Basophils # (A) 0.03 X 10*3/uL (0.00-0.10); Basophils % (A) 0.6 %; Eosinophils # (A) 0.14 X 10*3/uL (0.04-0.35); Eosinophils % (A) 2.8 %; HCT 44.9 % (39.6-50.0); HGB 12.8 g/dL (13.0-17.0); Immature Grans, Automated 0.2 %; Lymphocytes # (A) 0.61 X 10*3/uL (0.90-5.00); Lymphocytes % (A) 12.3 %; MCH 26.3 pg (27.0-32.0); MCHC 28.5 g/dL (32.0-37.0); MCV 92.2 fL (80.0-97.0); Mean Platelet Volume 10.2 fL (9.5-12.2); Monocytes # (A) 0.41 X 10*3/uL (0.20-1.00); Monocytes % (A) 8.3 %; NRBC Per 100 WBC 0 /100 WBCS (0.0-0.0); Neutrophils # (A) 3.74 X 10*3/uL (1.80-7.70); Neutrophils % (A) 75.8 %; Platelet Count 169 X 10*3/uL (140-440); RBC 4.87 X 10*6/uL (4.40-5.60); RDW 14.8 % (11.5-14.5); WBC 4.94 X 10*3/uL (4.50-10.00)
[2022-06-28 09:45] LABS: African American GFR (CKD) 58.6 (60.0-200.0); Albumin 3.5 g/dL (3.8-4.9); Albumin/Globulin Ratio 1.09 (1.60-3.17); Anion Gap 9.7 mmol/L (10.00-18.00); BUN/Creat Ratio 18.93 Ratio (12.00-20.00); Blood Urea Nitrogen 28.4 mg/dL (9.0-27.0); Calcium 8.2 mg/dL (8.7-10.3); Carbon Dioxide 35.7 mmol/L (20.0-27.5); Globulin 3.2 g/dL (1.6-3.3); Non-African American GFR(CKD) 50.6 (60.0-200.0); Potassium 4.1 mmol/L (3.5-5.5); Total Bilirubin 0.8 mg/dL (0.30-1.20); Total Protein 6.6 g/dL (6.2-8.2)
[2022-06-28] MEDS: ASPIRIN 81 MG PO SCH (10:34)
[2022-06-28] MEDS: METOPROLOL SUCCINATE (ER) 50 MG TAB.ER.24H PO SCH (10:34)
[2022-06-28] MEDS: PREGABALIN 75 MG CAP PO SCH ×2 (10:34→21:16)
[2022-06-28] MEDS: acetaZOLAMIDE 250 MG TAB PO SCH ×2 (10:34→22:25)
[2022-06-28] MEDS: HEPARIN SODIUM,PORCINE/PF 5,000 UNIT/0.5 ML SYRINGE SQ SCH ×2 (10:34→21:16)
[2022-06-28] MEDS: lisinopriL 20 MG TAB PO SCH (10:34)
--- NOTE | 2022-06-28 10:59 | P.PN ---
Subjective Progress Note Date: 06/28/22 HISTORY OF PRESENT ILLNESS: This is a 56-year-old male who is admitted to the hospital secondary to congestive heart failure. Patient examined this morning at the bedside. Patient denies chest pain or pressure. He continues to report shortness of breath. He remains on IV Lasix. He reports improvement in his lower extremity edema. Vital signs are stable. 06/27/2022 Patient examined this morning at the bedside. Patient denies chest pain or pressure. He reports improvement in his shortness of breath. Patient remains on IV Lasix. BUN 32. Creatinine 1.36. Carbon dioxide 42. Patient does not have accurate intake and output documented. Patient remains on 15 L high flow nasal cannula. 2-D echo completed revealing ejection fraction 50-55% with mild mitral regurgitation. 06/28/2022 Patient examined this morning. Patient is sitting up in the chair. He denies chest pain or pressure. He reports improvement in his shortness of breath. He remains on IV Lasix. Fluid balance over the last 24 hours is +380 mL. Creatinine today is 1.5, up from 1.36 yesterday. Patient remains on 11L NC. PHYSICAL EXAM: VITAL SIGNS: Reviewed. GENERAL: Well-developed in no acute distress. NECK: Supple. No JVD or thyromegaly LUNGS: Respirations even and unlabored. Lungs essentially clear to auscultation bilaterally, diminished. HEART: Regular rate and rhythm. S1 and S2 heard. EXTREMITIES: Normal range of motion. No clubbing or cyanosis. Peripheral p ulses intact. 1-2+ bilateral LE, improved. ASSESSMENT: Shortness of breath Acute on chronic heart failure with preserved ejection fraction Acute hypoxic respiratory failure requiring supplemental oxygen History of CVA in 2019 Diabetes Hypertension Normal coronary arteries, per cardiac catheterization in 2019 Hyperkalemia, resolved Acute kidney injury PLAN: Continue IV Lasix Continue Diamox Daily weights, accurate I&O, and monitoring of kidney function Continue additional cardiac medications Wean oxygen as tolerated. Further recommendations pending patient's course Nurse practitioner note has been reviewed by physician. Signing provider agrees with the documented findings, assessment, and plan of care. Objective - Vital Signs Vital signs: Vital Signs Temp 97.8 F 06/28/22 08:00 Pulse 88 06/28/22 08:02 Resp 20 06/28/22 08:00 BP 151/75 06/28/22 08:00 Pulse Ox 91 L 06/28/22 08:00 FiO2 Intake & Output 06/27/22 06/28/22 06/28/22 18:59 06:59 18:59 Intake Total 120 2360 Output Total 2100 475 Balance 120 260 -475 Weight 151.5 kg Intake: Oral 120 2360 Output: Urine 2100 475 Other: Voiding Method Toilet Toilet Toilet Urinal Urinal Urinal - Labs CBC & Chem 7: 06/28/22 06:22 06/28/22 06:22 Labs: Abnormal Lab Results - Last 24 Hours (Table) 06/27/22 06/27/22 06/27/22 Range/Units 11: 13:39 16:34 Hgb (13.0-17.0) g/dL MCH (27.0-32.0) pg MCHC (32.0-37.0) g/dL RDW (11.5-14.5) % Lymphocytes # (0.90-5.00) X 10*3/uL ABG pH 7.56 H* (7.35-7.45) ABG pO2 134 H (83-108) mmHg ABG HCO3 39 H (21-25) mmol/L ABG Total CO2 40 H (19-24) mmol/L ABG O2 Saturation 100.0 H (94-97) % Carbon Dioxide (20.0-27.5) mmol/L Anion Gap (10.00-18.00) mmol/L BUN (9.0-27.0) mg/dL Est GFR (CKD-EPI)AfAm (60.0-200.0) Est GFR (CKD-EPI)NonAf (60.0-200.0) Glucose (70-110) mg/dL POC Glucose (mg/dL) 208 H 160 H (70-110) mg/dL Calcium (8.7-10.3) mg/dL Albumin (3.8-4.9) g/dL Albumin/Globulin Ratio (1.60-3.17) g/dL 06/27/22 06/28/22 06/28/22 Range/Units 20:04 06:04 06:22 Hgb (13.0-17.0) g/dL MCH (27.0-32.0) pg MCHC (32.0-37.0) g/dL RDW (11.5-14.5) % Lymphocytes # (0.90-5.00) X 10*3/uL ABG pH (7.35-7.45) ABG pO2 (83-108) mmHg ABG HCO3 (21-25) mmol/L ABG Total CO2 (19-24) mmol/L ABG O2 Saturation (94-97) % Carbon Dioxide 35.7 H (20.0-27.5) mmol/L Anion Gap 9.70 L (10.00-18.00) mmol/L BUN 28.4 H (9.0-27.0) mg/dL Est GFR (CKD-EPI)AfAm 58.6 L (60.0-200.0) Est GFR (CKD-EPI)NonAf 50.6 L (60.0-200.0) Glucose 141 H (70-110) mg/dL POC Glucose (mg/dL) 172 H 152 H (70-110) mg/dL Calcium 8.2 L (8.7-10.3) mg/dL Albumin 3.5 L (3.8-4.9) g/dL Albumin/Globulin Ratio 1.09 L (1.60-3.17) g/dL 06/28/22 Range/Units 06:22 Hgb 12.8 L (13.0-17.0) g/dL MCH 26.3 L (27.0-32.0) pg MCHC 28.5 L (32.0-37.0) g/dL RDW 14.8 H (11.5-14.5) % Lymphocytes # 0.61 L (0.90-5.00) X 10*3/uL ABG pH (7.35-7.45) ABG pO2 (83-108) mmHg ABG HCO3 (21-25) mmol/L ABG Total CO2 (19-24) mmol/L ABG O2 Saturation (94-97) % Carbon Dioxide (20.0-27.5) mmol/L Anion Gap (10.00-18.00) mmol/L BUN (9.0-27.0) mg/dL Est GFR (CKD-EPI)AfAm (60.0-200.0) Est GFR (CKD-EPI)NonAf (60.0-200.0) Glucose (70-110) mg/dL POC Glucose (mg/dL) (70-110) mg/dL Calcium (8.7-10.3) mg/dL Albumin (3.8-4.9) g/dL Albumin/Globulin Ratio (1.60-3.17) g/dL Microbiology - Last 24 Hours (Table) 06/24/22 08:14 Blood Culture - Preliminary Blood No Growth after 96 hours 06/24/22 08:14 Blood Culture - Preliminary Blood No Growth after 96 hours
--- NOTE | 2022-06-28 11:15 | P.PN ---
Subjective Patient is seen in follow-up for acute kidney injury. Renal function stable. On IV Lasix and Diamox. Good urine output. No chest pain or shortness of breath. On high flow nasal cannula. Hemodynamically stable. Vital signs are stable. General: Awake. No acute distress. HEENT: Head exam is unremarkable. On nasal cannula. LUNGS: Breath sounds decreased. HEART: Rate and Rhythm are regular. ABDOMEN: Soft, obese. EXTREMITITES: 1+ edema. Objective - Vital Signs Vital signs: Vital Signs Temp 97.8 F 06/28/22 08:00 Pulse 88 06/28/22 08:02 Resp 20 06/28/22 08:00 BP 151/75 06/28/22 08:00 Pulse Ox 91 L 06/28/22 08:00 FiO2 Intake & Output 06/27/22 06/28/22 06/28/22 18:59 06:59 18:59 Intake Total 120 2360 Output Total 2100 475 Balance 120 260 -475 Weight 151.5 kg Intake: Oral 120 2360 Output: Urine 2100 475 Other: Voiding Method Toilet Toilet Toilet Urinal Urinal Urinal - Labs CBC & Chem 7: 06/28/22 06:22 06/28/22 06:22 Labs: Abnormal Lab Results - Last 24 Hours (Table) 06/27/22 06/27/22 06/27/22 Range/Units 11:25 13:39 16:34 Hgb (13.0-17.0) g/dL MCH (27.0-32.0) pg MCHC (32.0-37.0) g/dL RDW (11.5-14.5) % Lymphocytes # (0.90-5.00) X 10*3/uL ABG pH 7.56 H* (7.35-7.45) ABG pO2 134 H (83-108) mmHg ABG HCO3 39 H (21-25) mmol/L ABG Total CO2 40 H (19-24) mmol/L ABG O2 Saturation 100.0 H (94-97) % Carbon Dioxide (20.0-27.5) mmol/L Anion Gap (10.00-18.00) mmol/L BUN (9.0-27.0) mg/dL Est GFR (CKD-EPI)AfAm (60.0-200.0) Est GFR (CKD-EPI)NonAf (60.0-200.0) Glucose (70-110) mg/dL POC Glucose (mg/dL) 208 H 160 H (70-110) mg/dL Calcium (8.7-10.3) mg/dL Albumin (3.8-4.9) g/dL Albumin/Globulin Ratio (1.60-3.17) g/dL 06/27/22 06/28/22 06/28/22 Range/Units 20:04 06:04 06:22 Hgb (13.0-17.0) g/dL MCH (27.0-32.0) pg MCHC (32.0-37.0) g/dL RDW (11.5-14.5) % Lymphocytes # (0.90-5.00) X 10*3/uL ABG pH (7.35-7.45) ABG pO2 (83-108) mmHg ABG HCO3 (21-25) mmol/L ABG Total CO2 (19-24) mmol/L ABG O2 Saturation (94-97) % Carbon Dioxide 35.7 H (20.0-27.5) mmol/L Anion Gap 9.70 L (10.00-18.00) mmol/L BUN 28.4 H (9.0-27.0) mg/dL Est GFR (CKD-EPI)AfAm 58.6 L (60.0-200.0) Est GFR (CKD-EPI)NonAf 50.6 L (60.0-200.0) Glucose 141 H (70-110) mg/dL POC Glucose (mg/dL) 172 H 152 H (70-110) mg/dL Calcium 8.2 L (8.7-10.3) mg/dL Albumin 3.5 L (3.8-4.9) g/dL Albumin/Globulin Ratio 1.09 L (1.60-3.17) g/dL 06/28/22 Range/Units 06:22 Hgb 12.8 L (13.0-17.0) g/dL MCH 26.3 L (27.0-32.0) pg MCHC 28.5 L (32.0-37.0) g/dL RDW 14.8 H (11.5-14.5) % Lymphocytes # 0.61 L (0.90-5.00) X 10*3/uL ABG pH (7.35-7.45) ABG pO2 (83-108) mmHg ABG HCO3 (21-25) mmol/L ABG Total CO2 (19-24) mmol/L ABG O2 Saturation (94-97) % Carbon Dioxide (20.0-27.5) mmol/L Anion Gap (10.00-18.00) mmol/L BUN (9.0-27.0) mg/dL Est GFR (CKD-EPI)AfAm (60.0-200.0) Est GFR (CKD-EPI)NonAf (60.0-200.0) Glucose (70-110) mg/dL POC Glucose (mg/dL) (70-110) mg/dL Calcium (8.7-10.3) mg/dL Albumin (3.8-4.9) g/dL Albumin/Globulin Ratio (1.60-3.17) g/dL Microbiology - Last 24 Hours (Table) 06/24/22 08:14 Blood Culture - Preliminary Blood No Growth after 96 hours 06/24/22 08:14 Blood Culture - Preliminary Blood No Growth after 96 hours Assessment and Plan Plan: Assessment: 1. Acute kidney injury mostly prerenal secondary to cardiorenal syndrome. Renal function fairly stable - creatinine 1.5. No hydronephrosis noted on kidney ultrasound. UA benign. 2. Volume overload. Improving with diuresis. 3. Hyperkalemia secondary to acute kidney injury and lisinopril. Improved with medical management. 4. Diabetes mellitus. 5. Metabolic alkalosis from diuresis. Also respiratory alkalosis (based on ABG done yesterday, expected pCO2 should be about 50-52). Alkalosis improved. Bicarb 35.7 today. 6. Acute on chronic diastolic CHF. Plan: Maintain IV Lasix and diamox. Low-salt diet. 1500 mL fluid restriction. Avoid nephrotoxins. Continue to monitor renal function and urine output.
[2022-06-28 11:50] LABS: Glucose,Whole Blood 179 mg/dL (70-110)
--- NOTE | 2022-06-28 16:18 | P.PN ---
Subjective Progress Note Date: 06/28/22 This is a 56-year-old male patient, morbidly obese, who was recently admitted to [facility] for shortness of breath and he was discharged on oxygen at 3 L/m nasal cannula. The patient was admitted to our hospital because of worsening shortness of breath and increased in edema in lower extremities and abdominal distention and swelling. He was diagnosed having CHF with preserved LV function and the patient was given diuretics. During the course of his illness, creatinine went up to 1.5 and it subsequently improved and the most recent creatinine from today is at 1.36 and the patient is being given diuretics. The patient is in ex-smoker. He smoked marijuana and cigars in the past. He has not smoked tobacco on a regular basis. He is morbidly obese. He has a typical features of obstructive sleep apnea although this has not been pursued and has not been diagnosed and the patient not receiving any treatment. He has no angina. No palpitation. No significant cough or congestion. He has exertional dyspnea and his overall shortness of breath and progressively getting worse over time. He is currently on Lasix 40 mg IV every 8 hours. He is also on Diamox 250 mg by mouth twice a day. He is on oxygen at 15 L/m nasal cannula. Chest x-ray showed cardiomegaly and atelectatic change in lung bases and possibly small bilateral pleural effusions. Overall fluid balance over the past 24 hours has been -5.2 L. No previous history of DVT and pulmonary embolism. The patient states that he was given a ultrasound Doppler of the lower extremity at [facility] and the results were negative. The patient has no signs of any CO2 narcosis at this point in time. He is hemodynamically stable. On his blood work, his proBNP level was 1620, troponins were negative, his Covid 19 testing was negative and the patient has not received any vaccination for Covid 19. Liver function tests are essentially within normal limits. His total albumin is at 3.7 with a total protein of 6.8. UA is negative for any proteinuria. Echo of the heart shows a preserved LV function with an ejection fraction of 50-55%. No significant valvular abnormalities. Right sided cardiac structures were not accurately evaluated The patient is seen today 06/28/2022 in follow-up on the regular medical floor. He is currently sitting up in a chair at the bedside. Awake and alert in no a cute distress. Breathing a bit easier today compared to yesterday. currently maintaining O2 saturations in the 90s on 10 L high flow nasal cannula. He is afebrile. Hemodynamically stable. Computed tomography scan of the chest revealed patchy bibasilar linear consolidation with air bronchograms suggestive of atelectasis but cannot totally exclude a superimposed infection. Mildly enlarged sub-carinal lymph nodes likely reactive. Mild cardiomegaly. Blood cultures revealed no growth. White count 4.9. Hemoglobin 12.8. Platelet 169. Sodium 141. Potassium 4.1. Bicarb 36. Pro calcitonin 0.05. He is currently on Lasix 40 mg IV every 8 hours. He is currently in a -5.2 L balance. He is down 7 kilograms per weight. He is continued on Symbicort, Atrovent. He remains on Diamox. Objective - Vital Signs Vital signs: Vital Signs Temp 98.0 F 06/28/22 14:00 Pulse 70 06/28/22 14:00 Resp 20 06/28/22 14:00 BP 111/69 06/28/22 14:00 Pulse Ox 93 L 06/28/22 14:00 FiO2 Intake & Output 06/27/22 06/28/22 06/28/22 18:59 06:59 18:59 Intake Total 120 2360 Output Total 2100 475 Balance 120 260 -475 Weight 151.5 kg Intake: Oral 120 2360 Output: Urine 2100 475 Other: Voiding Method Toilet Toilet Toilet Urinal Urinal Urinal - Exam Pleasant, 56-year-old male patient, morbidly obese, comfortable no acute distress, BMI of 55, currently on 10 L O2 nasal cannula Head exam was generally normal. There was no scleral icterus or corneal arcus. Mucous membranes were moist. Neck was supple and without jugular venous distension, thyromegaly, or carotid bruits. Carotids were easily palpable bilaterally. There was no adenopathy. Mallampati class IV with significant crowding of the posterior oropharynx Lungs sounds are showing diminished breath sounds bilaterally in the lung bases along with some bibasilar crackles Heart sounds are distant, regular, no significant murmurs appreciated Abdomen is morbidly obese and organs cannot be accurately palpated. No direct tenderness abundance or guarding Extremities revealed +1 pitting edema, no cyanosis or clubbing Examination of the skin revealed no evidence of significant rashes, suspicious appearing nevi or other concerning lesions. Neurologically, the patient is awake and alert and the patient does not have any focal neurological deficit. Cranial nerves are essentially intact. - Labs CBC & Chem 7: 06/28/22 06:22 06/28/22 06:22 Labs: Abnormal Lab Results - Last 24 Hours (Table) 06/27/22 06/27/22 06/28/22 Range/Units 16:34 20:04 06:04 Hgb (13.0-17.0) g/dL MCH (27.0-32.0) pg MCHC (32.0-37.0) g/dL RDW (11.5-14.5) % Lymphocytes # (0.90-5.00) X 10*3/uL Carbon Dioxide (20.0-27.5) mmol/L Anion Gap (10.00-18.00) mmol/L BUN (9.0-27.0) mg/dL Est GFR (CKD-EPI)AfAm (60.0-200.0) Est GFR (CKD-EPI)NonAf (60.0-200.0) Glucose (70-110) mg/dL POC Glucose (mg/dL) 160 H 172 H 152 H (70-110) mg/dL Calcium (8.7-10.3) mg/dL Albumin (3.8-4.9) g/dL Albumin/Globulin Ratio (1.60-3.17) g/dL 06/28/22 06/28/22 06/28/22 Range/Units 06:22 06:22 11:48 Hgb 12.8 L (13.0-17.0) g/dL MCH 26.3 L (27.0-32.0) pg MCHC 28.5 L (32.0-37.0) g/dL RDW 14.8 H (11.5-14.5) % Lymphocytes # 0.61 L (0.90-5.00) X 10*3/uL Carbon Dioxide 35.7 H (20.0-27.5) mmol/L Anion Gap 9.70 L (10.00-18.00) mmol/L BUN 28.4 H (9.0-27.0) mg/dL Est GFR (CKD-EPI)AfAm 58.6 L (60.0-200.0) Est GFR (CKD-EPI)NonAf 50.6 L (60.0-200.0) Glucose 141 H (70-110) mg/dL POC Glucose (mg/dL) 179 H (70-110) mg/dL Calcium 8.2 L (8.7-10.3) mg/dL Albumin 3.5 L (3.8-4.9) g/dL Albumin/Globulin Ratio 1.09 L (1.60-3.17) g/dL Microbiology - Last 24 Hours (Table) 06/24/22 08:14 Blood Culture - Preliminary Blood No Growth after 96 hours 06/24/22 08:14 Blood Culture - Preliminary Blood No Growth after 96 hours Assessment and Plan Assessment: Acute hypoxic respiratory failure. The patient was initially hospitalized at [facility] for almost a week and following that he was discharged on oxygen to be readmitted to our hospital. The patient's oxygen patient is to worsen the patient is currently on 10 L of oxygen by nasal cannula. There is evidence of fluid overload and edema consistent with CHF/diastolic dysfunction/preserved LV function. The patient may have also an underlying right-sided heart failure due to his chronic hypoxic/hypercapnic respiratory failure and the patient has increased edema and third spacing. Possibility of underlying pneumonia and possibility of underlying atelectasis in the lung bases under good into the patient's shortness of breath and hypoxemia cannot be completely excluded. Computed tomography scan of the chest revealed patchy by basilar linear consolidation with air bronchograms suggested more so of atelectasis. Pro-calcitonin is 0.05. Chronic hypoxic respiratory failure Morbid obesity with a BMI 55 Ostructive sleep apnea with possibility of an underlying obesity hypoventilation syndrome on clinical grounds. COPD, maintain on Trelegy Ellipta on outpatient basis Hypertension Diabetes mellitus Chronic lower extremity edema Chronic stage III kidney disease versus an acute kidney injury History of CVA back in 2019 and the patient walks without a walker Normal coronaries based on the cardiac catheterization from 2019 Plan: The patient was seen and evaluated CAT scan, medications and labs reviewed Continue with IV diuretics, Diamox Diuresing well Continue to titrate the FiO2 as tolerated Continue Symbicort, Albuterol We will continue to follow I have personally seen and examined the patient, performed the documentation and the assessment and plan as written. Number of minutes spent on the visit: 10. Plan: Evaluation that was done along with the nurse practitioner. I agree on the above-mentioned plan. The patient was seen in conjunction with the [employer]. This evaluation was done in more than 20 minutes.
[2022-06-28 16:28] LABS: Glucose,Whole Blood 109 mg/dL (70-110)
[2022-06-28 21:04] LABS: Glucose,Whole Blood 129 mg/dL (70-110)
[2022-06-28] MEDS: AMITRIPTYLINE HCL 10 MG TAB PO SCH (21:16)
[2022-06-28] MEDS: traZODone HCL 50 MG TAB PO SCH (21:16)
[2022-06-28] MEDS ORDERED: acetaZOLAMIDE 250 MG TAB PO SCH (21:45)
--- NOTE | 2022-06-29 00:20 | PN ---
PROGRESS NOTE DATE OF SERVICE: 06/28/2022 SUBJECTIVE: This is a 56-year-old gentleman who was admitted with CHF acute exacerbation, also had possibly obesity, hypoventilation syndrome, also notes the patient had hypercarbia. No chest pain. No palpitations. No fever. A chest CT revealed some bibasilar consolidation. OBJECTIVE: VITAL SIGNS: Pulse is 70, blood pressure 111/69, respirations 20. HEENT: Conjunctivae normal. NECK: No JVD. CARDIOVASCULAR: S1, S2 muffled. RESPIRATIONS: A few scattered rhonchi. ABDOMEN: Soft, obese. NERVOUS SYSTEM: No focal deficits. LABS: Reviewed. ASSESSMENT: 1. Congestive heart failure acute exacerbation with acute on chronic diastolic dysfunction, on IV Lasix. 2. Possible obesity hypoventilation syndrome. 3. Hyperkalemia. 4. History of cerebrovascular accident, transient ischemic attack. 5. Diabetes mellitus, type 2. 6. History of motion sickness. DISCUSSION AND RECOMMENDATIONS: Recommend to continue current medications and symptomatic treatment. Continue with diuretics. Continue with incentive spirometry. Continue with bronchodilators. Closely follow with Pulmonary. Prognosis guarded. Further recommendations to follow. MMODL / IJN: [id number] /
[2022-06-29] MEDS: FUROSEMIDE 10 MG/ML 4 ML VIAL IV SCH ×3 (00:34→17:38)
[2022-06-29 05:59] LABS: Glucose,Whole Blood 142 mg/dL (70-110)
[2022-06-29] MEDS: PANTOPRAZOLE 40 MG TABLET PO SCH (06:50)
[2022-06-29] MEDS: SYMBICORT 80-4.5 MCG INHALER INHALATION SCH ×2 (08:25→20:53)
[2022-06-29] MEDS: IPRATROPIUM 0.5 MG/2.5 ML NEBU INHALATION SCH ×4 (08:25→20:53)
[2022-06-29] MEDS: PREGABALIN 75 MG CAP PO SCH ×2 (08:50→21:08)
[2022-06-29] MEDS: METOPROLOL SUCCINATE (ER) 50 MG TAB.ER.24H PO SCH (08:50)
[2022-06-29] MEDS: ASPIRIN 81 MG PO SCH (08:50)
[2022-06-29] MEDS: HEPARIN SODIUM,PORCINE/PF 5,000 UNIT/0.5 ML SYRINGE SQ SCH ×2 (08:50→21:08)
[2022-06-29] MEDS: lisinopriL 20 MG TAB PO SCH (08:50)
[2022-06-29 10:07] LABS: African American GFR (CKD) 58.6 (60.0-200.0); Anion Gap 10.7 mmol/L (10.00-18.00); BUN/Creat Ratio 20.4 Ratio (12.00-20.00); Blood Urea Nitrogen 30.6 mg/dL (9.0-27.0); Calcium 8.5 mg/dL (8.7-10.3); Carbon Dioxide 34.3 mmol/L (20.0-27.5); Non-African American GFR(CKD) 50.6 (60.0-200.0)
--- NOTE | 2022-06-29 10:45 | P.PN ---
Subjective Patient is seen in follow-up for acute kidney injury. Renal function stable. On IV Lasix and Diamox. Good urine output. No chest pain or shortness of breath. On 8 L nasal cannula. Hemodynamically stable. No active complaints. Vital signs are stable. General: Awake. No acute distress. HEENT: Head exam is unremarkable. On nasal cannula. LUNGS: Breath sounds decreased. HEART: Rate and Rhythm are regular. ABDOMEN: Soft, obese. EXTREMITITES: 1+ edema. Objective - Vital Signs Vital signs: Vital Signs Temp 97.4 F L 06/29/22 08:00 Pulse 76 06/29/22 08:36 Resp 18 06/29/22 01:23 BP 104/64 06/29/22 08:00 Pulse Ox 96 06/29/22 08:00 FiO2 Intake & Output 06/28/22 06/29/22 06/29/22 18:59 06:59 18:59 Intake Total 898 Output Total 1375 1475 Balance -477 -1475 Weight 148.5 kg Intake: Oral 898 Output: Urine 1375 1475 Stool 0 Other: Voiding Method Toilet Toilet Urinal Urinal - Labs CBC & Chem 7: 06/28/22 06:22 06/29/22 06:30 Labs: Abnormal Lab Results - Last 24 Hours (Table) 06/28/22 06/28/22 06/29/22 Range/Units 11:48 21:00 05:56 Chloride (96-109) mmol/L Carbon Dioxide (20.0-27.5) mmol/L BUN (9.0-27.0) mg/dL Est GFR (CKD-EPI)AfAm (60.0-200.0) Est GFR (CKD-EPI)NonAf (60.0-200.0) BUN/Creatinine Ratio (12.00-20.00) Ratio Glucose (70-110) mg/dL POC Glucose (mg/dL) 179 H 129 H 142 H (70-110) mg/dL Calcium (8.7-10.3) mg/dL 06/29/22 Range/Units 06:30 Chloride 94 L (96-109) mmol/L Carbon Dioxide 34.3 H (20.0-27.5) mmol/L BUN 30.6 H (9.0-27.0) mg/dL Est GFR (CKD-EPI)AfAm 58.6 L (60.0-200.0) Est GFR (CKD-EPI)NonAf 50.6 L (60.0-200.0) BUN/Creatinine Ratio 20.40 H (12.00-20.00) Ratio Glucose 136 H (70-110) mg/dL POC Glucose (mg/dL) (70-110) mg/dL Calcium 8.5 L (8.7-10.3) mg/dL Microbiology - Last 24 Hours (Table) 06/24/22 08:14 Blood Culture - Preliminary Blood No Growth after 120 hours 06/24/22 08:14 Blood Culture - Preliminary Blood No Growth after 120 hours Assessment and Plan Plan: Assessment: 1. Acute kidney injury mostly prerenal secondary to cardiorenal syndrome. Renal function fairly stable - creatinine 1.5. No hydronephrosis noted on kidney ultrasound. UA benign. 2. Volume overload. Improving with diuresis. 3. Hyperkalemia secondary to acute kidney injury and lisinopril. Improved with medical management. 4. Diabetes mellitus. 5. Metabolic alkalosis from diuresis. Also respiratory alkalosis (based on ABG done 06/27/2022, expected pCO2 should be about 50-52). Alkalosis improved. Bicarb 34.3 today. 6. Acute on chronic diastolic CHF. Plan: Maintain IV Lasix -transition to oral diuretics hopefully tomorrow. Off Diamox. Low-salt diet. 1500 mL fluid restriction. Avoid nephrotoxins. Continue to monitor renal function and urine output. Repeat labs in the morning.
[2022-06-29 11:45] LABS: Glucose,Whole Blood 134 mg/dL (70-110)
--- NOTE | 2022-06-29 12:26 | P.PN ---
Subjective This is a pleasant 56 years old male with multiple medical problems presents with respiratory distress and acute hypoxic respiratory failure secondary to CHF Patient is kept on at the Lasix 40 mg 3 times a day with fluid restriction, His oxygen requirement trending down to 8 L/m today. Creatinine is stable at 1.4. Patient patient is being monitored closely by offbearer sewer pipe, strike plate attacher and strike plate attacher Objective - Vital Signs Vital signs: Vital Signs Temp 97.4 F L 06/29/22 08:00 Pulse 76 06/29/22 08:36 Resp 18 06/29/22 01:23 BP 104/64 06/29/22 08:00 Pulse Ox 96 06/29/22 08:00 FiO2 Intake & Output 06/28/22 06/29/22 06/29/22 18:59 06:59 18:59 Intake Total 898 Output Total 1375 1475 Balance -477 -1475 Weight 148.5 kg Intake: Oral 898 Output: Urine 1375 1475 Stool 0 Other: Voiding Method Toilet Toilet Urinal Urinal - Exam -GENERAL: The patient is alert and oriented x3, not in any acute distress. Morbidly obese HEENT: Pupils are round and equally reacting to light. EOMI. No scleral icterus. No conjunctival pallor. Normocephalic, atraumatic. No pharyngeal erythema. No thyromegaly. CARDIOVASCULAR: S1 and S2 present. No murmurs, rubs, or gallops. -PULMONARY: Chest is clear to auscultation, no wheezing.bilateral basal crackles. ABDOMEN: Soft, nontender, nondistended, normoactive bowel sounds. No palpable organomegaly. MUSCULOSKELETAL: No joint swelling or deformity. -EXTREMITIES: No cyanosis, clubbing, bilateral pitting edema of the legs NEUROLOGICAL: Gross neurological examination did not reveal any focal deficits. SKIN: No rashes. no petechiae. - Labs CBC & Chem 7: 06/28/22 06:22 06/29/22 06:30 Labs: Abnormal Lab Results - Last 24 Hours (Table) 06/28/22 06/29/22 06/29/22 Range/Units 21:00 05:56 06:30 Chloride 94 L (96-109) mmol/L Carbon Dioxide 34.3 H (20.0-27.5) mmol/L BUN 30.6 H (9.0-27.0) mg/dL Est GFR (CKD-EPI)AfAm 58.6 L (60.0-200.0) Est GFR (CKD-EPI)NonAf 50.6 L (60.0-200.0) BUN/Creatinine Ratio 20.40 H (12.00-20.00) Ratio Glucose 136 H (70-110) mg/dL POC Glucose (mg/dL) 129 H 142 H (70-110) mg/dL Calcium 8.5 L (8.7-10.3) mg/dL 06/29/22 Range/Units 11:43 Chloride (96-109) mmol/L Carbon Dioxide (20.0-27.5) mmol/L BUN (9.0-27.0) mg/dL Est GFR (CKD-EPI)AfAm (60.0-200.0) Est GFR (CKD-EPI)NonAf (60.0-200.0) BUN/Creatinine Ratio (12.00-20.00) Ratio Glucose (70-110) mg/dL POC Glucose (mg/dL) 134 H (70-110) mg/dL Calcium (8.7-10.3) mg/dL Microbiology - Last 24 Hours (Table) 06/24/22 08:14 Blood Culture - Preliminary Blood No Growth after 120 hours 06/24/22 08:14 Blood Culture - Preliminary Blood No Growth after 120 hours Assessment and Plan Assessment: Acute diastolic CHF Acute on chronic hypoxic respiratory failure Morbid obesity with possible obstructive sleep apnea and obesity hypoventilation syndrome COPD with no acute exacerbation Kidney injury mostly cardiorenal syndrome Plan: Continue with IV Lasix Input output and creatinine Pulmonary cardiology and nephrology consult Labs and medication were reviewed.. Continue same treatment. Continue with symptomatic treatment. Resume home medication. Monitor labs and vitals. DVT and GI prophylaxis. Further recommendations as per clinical course of the patient DVT prophylaxis: Subcutaneous heparin GI Prophylaxis: Ppi PT/OT: Pending Prognosis is guarded
--- NOTE | 2022-06-29 15:38 | P.PN ---
Subjective HISTORY OF PRESENT ILLNESS: This is a 56-year-old male who is admitted to the hospital secondary to congestive heart failure. Patient examined this morning at the bedside. Patient denies chest pain or pressure. He continues to report shortness of breath. He remains on IV Lasix. He reports improvement in his lower extremity edema. Vital signs are stable. 06/27/2022 Patient examined this morning at the bedside. Patient denies chest pain or pressure. He reports improvement in his shortness of breath. Patient remains on IV Lasix. BUN 32. Creatinine 1.36. Carbon dioxide 42. Patient does not have accurate intake and output documented. Patient remains on 15 L high flow nasal cannula. 2-D echo completed revealing ejection fraction 50-55% with mild mitral regurgitation. 06/28/2022 Patient examined this morning. Patient is sitting up in the chair. He denies chest pain or pressure. He reports improvement in his shortness of breath. He remains on IV Lasix. Fluid balance over the last 24 hours is +380 mL. Creatinine today is 1.5, up from 1.36 yesterday. Patient remains on 11L NC. 06/29 Patient seen and examined. Patient admits to continued good urine output. Denies any chest pain or pressure. Creatinine remains fairly stable at 1.5. Still has 2+ lower extremity edema. PHYSICAL EXAM: VITAL SIGNS: Reviewed. GENERAL: Well-developed in no acute distress. NECK: Supple. No JVD or thyromegaly LUNGS: Respirations even and unlabored. Lungs essentially clear to auscultation bilaterally, diminished. HEART: Regular rate and rhythm. S1 and S2 heard. EXTREMITIES: Normal range of motion. No clubbing or cyanosis. Peripheral pulses intact. 1-2+ bilateral LE, improved. ASSESSMENT: Shortness of breath Acute on chronic heart failure with preserved ejection fraction Acute hypoxic respiratory failure requiring supplemental oxygen History of CVA in 2019 Diabetes Hypertension Normal coronary arteries, per cardiac catheterization in 2019 Hyperkalemia, resolved Acute kidney injury PLAN: Continue IV Lasix Still with significant lower extremity edema and slow progress. Contraction alkalosis as predominantly improved. Give additional dose of Zaroxolyn and monitor response. Daily weights, accurate I&O, and monitoring of kidney function Continue additional cardiac medications Wean oxygen as tolerated. Further recommendations pending patient's course Objective - Vital Signs Vital signs: Vital Signs Temp 98.1 F 06/29/22 14:00 Pulse 65 06/29/22 14:00 Resp 18 06/29/22 14:00 BP 110/64 06/29/22 14:00 Pulse Ox 94 L 06/29/22 14:00 FiO2 Intake & Output 06/28/22 06/29/22 06/29/22 18:59 06:59 18:59 Intake Total 898 Output Total 1375 1475 500 Balance -477 -5935 -500 Weight 148.5 kg Intake: Oral 898 Output: Urine 1375 1475 500 Stool 0 Other: Voiding Method Toilet Toilet Urinal Urinal - Labs CBC & Chem 7: 06/28/22 06:22 06/29/22 06:30 Labs: Abnormal Lab Results - Last 24 Hours (Table) 06/28/22 06/29/22 06/29/22 Range/Units 21:00 05:56 06:30 Chloride 94 L (96-109) mmol/L Carbon Dioxide 34.3 H (20.0-27.5) mmol/L BUN 30.6 H (9.0-27.0) mg/dL Est GFR (CKD-EPI)AfAm 58.6 L (60.0-200.0) Est GFR (CKD-EPI)NonAf 50.6 L (60.0-200.0) BUN/Creatinine Ratio 20.40 H (12.00-20.00) Ratio Glucose 136 H (70-110) mg/dL POC Glucose (mg/dL) 129 H 142 H (70-110) mg/dL Calcium 8.5 L (8.7-10.3) mg/dL 06/29/22 Range/Units 11:43 Chloride (96-109) mmol/L Carbon Dioxide (20.0-27.5) mmol/L BUN (9.0-27.0) mg/dL Est GFR (CKD-EPI)AfAm (60.0-200.0) Est GFR (CKD-EPI)NonAf (60.0-200.0) BUN/Creatinine Ratio (12.00-20.00) Ratio Glucose (70-110) mg/dL POC Glucose (mg/dL) 134 H (70-110) mg/dL Calcium (8.7-10.3) mg/dL Microbiology - Last 24 Hours (Table) 06/24/22 08:14 Blood Culture - Preliminary Blood No Growth after 120 hours 06/24/22 08:14 Blood Culture - Preliminary Blood No Growth after 120 hours
[2022-06-29] MEDS ORDERED: metOLazone 5 MG TAB PO SCH (15:45)
[2022-06-29 16:06] LABS: Glucose,Whole Blood 142 mg/dL (70-110)
--- NOTE | 2022-06-29 16:49 | P.PN ---
Subjective Progress Note Date: 06/29/22 This is a 56-year-old male patient, morbidly obese, who was recently admitted to [facility] for shortness of breath and he was discharged on oxygen at 3 L/m nasal cannula. The patient was admitted to our hospital because of worsening shortness of breath and increased in edema in lower extremities and abdominal distention and swelling. He was diagnosed having CHF with preserved LV function and the patient was given diuretics. During the course of his illness, creatinine went up to 1.5 and it subsequently improved and the most recent creatinine from today is at 1.36 and the patient is being given diuretics. The patient is in ex-smoker. He smoked marijuana and cigars in the past. He has not smoked tobacco on a regular basis. He is morbidly obese. He has a typical features of obstructive sleep apnea although this has not been pursued and has not been diagnosed and the patient not receiving any treatment. He has no angina. No palpitation. No significant cough or congestion. He has exertional dyspnea and his overall shortness of breath and progressively getting worse over time. He is currently on Lasix 40 mg IV every 8 hours. He is also on Diamox 250 mg by mouth twice a day. He is on oxygen at 15 L/m nasal cannula. Chest x-ray showed cardiomegaly and atelectatic change in lung bases and possibly small bilateral pleural effusions. Overall fluid balance over the past 24 hours has been -5.2 L. No previous history of DVT and pulmonary embolism. The patient states that he was given a ultrasound Doppler of the lower extremity at [facility] and the results were negative. The patient has no signs of any CO2 narcosis at this point in time. He is hemodynamically stable. On his blood work, his proBNP level was 1620, troponins were negative, his Covid 19 testing was negative and the patient has not received any vaccination for Covid 19. Liver function tests are essentially within normal limits. His total albumin is at 3.7 with a total protein of 6.8. UA is negative for any proteinuria. Echo of the heart shows a preserved LV function with an ejection fraction of 50-55%. No significant valvular abnormalities. Right sided cardiac structures were not accurately evaluated The patient is seen today 06/28/2022 in follow-up on the regular medical floor. He is currently sitting up in a chair at the bedside. Awake and alert in no a cute distress. Breathing a bit easier today compared to yesterday. currently maintaining O2 saturations in the 90s on 10 L high flow nasal cannula. He is afebrile. Hemodynamically stable. Computed tomography scan of the chest revealed patchy bibasilar linear consolidation with air bronchograms suggestive of atelectasis but cannot totally exclude a superimposed infection. Mildly enlarged sub-carinal lymph nodes likely reactive. Mild cardiomegaly. Blood cultures revealed no growth. White count 4.9. Hemoglobin 12.8. Platelet 169. Sodium 141. Potassium 4.1. Bicarb 36. Pro calcitonin 0.05. He is currently on Lasix 40 mg IV every 8 hours. He is currently in a -5.2 L balance. He is down 7 kilograms per weight. He is continued on Symbicort, Atrovent. He remains on Diamox. On 06/29/2022, the patient reports that he is improving. He is less short of breath. The oxygenation is also improved and she is currently on 8 L O2 nasal cannula and there is ongoing improvement in the patient's oxygenation. Meanwhile, the patient has no chest pain. Less congestion and wheezing on examination of the patient is still on diuretics and the patient is receiving Lasix 40 mg IV 3 times a day. On the blood work, the patient's BUN is at 30 with a creatinine of 1.5 and sodium levels of 139 and a potassium level is at 4.0. The fluid balance over the past 24 hours is -1.9 L. The CAT scan of the chest that was done on 06/25/2022 showed some patchy bibasilar consolidation with air bronchograms suggestive of atelectasis. Afebrile. Hemodynamically stable. No other new complaints. He remains on Lasix 40 mg IV every 8 hours. Objective - Vital Signs Vital signs: Vital Signs Temp 98.1 F 06/29/22 14:00 Pulse 86 06/29/22 15:56 Resp 18 06/29/22 14:00 BP 110/64 06/29/22 14:00 Pulse Ox 96 06/29/22 15:43 FiO2 Intake & Output 06/28/22 06/29/22 06/29/22 18:59 06:59 18:59 Intake Total 898 Output Total 1375 1475 500 Balance -477 -1475 -500 Weight 148.5 kg Intake: Oral 898 Output: Urine 1375 1475 500 Stool 0 Other: Voiding Method Toilet Toilet Urinal Urinal - Exam Pleasant, 56-year-old male patient, morbidly obese, comfortable no acute distress, BMI of 55, currently on 8 L O2 nasal cannula Head exam was generally normal. There was no scleral icterus or corneal arcus. Mucous membranes were moist. Neck was supple and without jugular venous distension, thyromegaly, or carotid bruits. Carotids were easily palpable bilaterally. There was no adenopathy. Mallampati class IV with significant crowding of the posterior oropharynx Lungs sounds are showing diminished breath sounds bilaterally in the lung bases along with some bibasilar crackles Heart sounds are distant, regular, no significant murmurs appreciated Abdomen is morbidly obese and organs cannot be accurately palpated. No direct tenderness abundance or guarding Extremities revealed +1 pitting edema, no cyanosis or clubbing Examination of the skin revealed no evidence of significant rashes, suspicious appearing nevi or other concerning lesions. Neurologically, the patient is awake and alert and the patient does not have any focal neurological deficit. Cranial nerves are essentially intact. - Labs CBC & Chem 7: 06/28/22 06:22 06/29/22 06:30 Labs: Abnormal Lab Results - Last 24 Hours (Table) 06/28/22 06/29/22 06/29/22 Range/Units 21:00 05:56 06:30 Chloride 94 L (96-109) mmol/L Carbon Dioxide 34.3 H (20.0-27.5) mmol/L BUN 30.6 H (9.0-27.0) mg/dL Est GFR (CKD-EPI)AfAm 58.6 L (60.0-200.0) Est GFR (CKD-EPI)NonAf 50.6 L (60.0-200.0) BUN/Creatinine Ratio 20.40 H (12.00-20.00) Ratio Glucose 136 H (70-110) mg/dL POC Glucose (mg/dL) 129 H 142 H (70-110) mg/dL Calcium 8.5 L (8.7-10.3) mg/dL 06/29/22 06/29/22 Range/Units 11:43 16:05 Chloride (96-109) mmol/L Carbon Dioxide (20.0-27.5) mmol/L BUN (9.0-27.0) mg/dL Est GFR (CKD-EPI)AfAm (60.0-200.0) Est GFR (CKD-EPI)NonAf (60.0-200.0) BUN/Creatinine Ratio (12.00-20.00) Ratio Glucose (70-110) mg/dL POC Glucose (mg/dL) 134 H 142 H (70-110) mg/dL Calcium (8.7-10.3) mg/dL Microbiology - Last 24 Hours (Table) 06/24/22 08:14 Blood Culture - Preliminary Blood No Growth after 120 hours 06/24/22 08:14 Blood Culture - Preliminary Blood No Growth after 120 hours Assessment and Plan Assessment: Acute hypoxic respiratory failure. The patient was initially hospitalized at [facility] for almost a week and following that he was discharged on oxygen to be readmitted to our hospital. The patient's oxygen patient is to worsen the patient is currently on a L of oxygen by nasal cannula. There is evidence of fluid overload and edema consistent with CHF/diastolic dysfunction/p reserved LV function. The patient may have also an underlying right-sided heart failure due to his chronic hypoxic/hypercapnic respiratory failure and the patient has increased edema and third spacing. Possibility of underlying pneumonia and possibility of underlying atelectasis in the lung bases under good into the patient's shortness of breath and hypoxemia cannot be completely excluded. Computed tomography scan of the chest revealed patchy by basilar linear consolidation with air bronchograms suggested more so of atelectasis. Pro-calcitonin is 0.05.. The patient remains in a negative fluid balance. The patient remains on Lasix 40 mg IV every 8 hours Chronic hypoxic respiratory failure Morbid obesity with a BMI 55 Ostructive sleep apnea with possibility of an underlying obesity hypoventilation syndrome on clinical grounds. COPD, maintain on Trelegy Ellipta on outpatient basis Hypertension Diabetes mellitus Chronic lower extremity edema Chronic stage III kidney disease versus an acute kidney injury History of CVA back in 2019 and the patient walks without a walker Normal coronaries based on the cardiac catheterization from 2019 Plan: Continue same treatment Continue IV Lasix 40 mg every 8 hours May need to add Diamox if there is significant alkalosis Diuresing well Continue to titrate the FiO2 as tolerated, currently down to 8 L Continue Symbicort, Albuterol Use incentive spirometer aggressively We will continue to follow
[2022-06-29 19:32] LABS: Glucose,Whole Blood 169 mg/dL (70-110)
[2022-06-29] MEDS: traZODone HCL 50 MG TAB PO SCH (21:08)
[2022-06-29] MEDS: AMITRIPTYLINE HCL 10 MG TAB PO SCH (21:08)
[2022-06-30] MEDS: FUROSEMIDE 10 MG/ML 4 ML VIAL IV SCH ×2 (00:27→10:10)
[2022-06-30 05:54] LABS: Glucose,Whole Blood 139 mg/dL (70-110)
[2022-06-30] MEDS: PANTOPRAZOLE 40 MG TABLET PO SCH (06:30)
--- NOTE | 2022-06-30 08:39 | P.PN ---
Subjective Progress Note Date: 06/30/22 HISTORY OF PRESENT ILLNESS: This is a 56-year-old male who is admitted to the hospital secondary to congestive heart failure. Patient examined this morning at the bedside. Patient denies chest pain or pressure. He continues to report shortness of breath. He remains on IV Lasix. He reports improvement in his lower extremity edema. Vital signs are stable. 06/27/2022 Patient examined this morning at the bedside. Patient denies chest pain or pressure. He reports improvement in his shortness of breath. Patient remains on IV Lasix. BUN 32. Creatinine 1.36. Carbon dioxide 42. Patient does not have accurate intake and output documented. Patient remains on 15 L high flow nasal cannula. 2-D echo completed revealing ejection fraction 50-55% with mild mitral regurgitation. 06/28/2022 Patient examined this morning. Patient is sitting up in the chair. He denies chest pain or pressure. He reports improvement in his shortness of breath. He remains on IV Lasix. Fluid balance over the last 24 hours is +380 mL. Creatinine today is 1.5, up from 1.36 yesterday. Patient remains on 11L NC. 06/30/2022 Patient examined this morning at the bedside. Patient denies chest pain or pressure. He reports improvement in his breathing. Patient is currently on 5 L nasal cannula. He remains on IV Lasix. Kidney function from this morning is currently pending. Fluid balance over the last 24 hours is -200 mL. PHYSICAL EXAM: VITAL SIGNS: Reviewed. GENERAL: Well-developed in no acute distress. NECK: Supple. No JVD or thyromegaly LUNGS: Respirations even and unlabored. Lungs essentially clear to auscultation bilaterally, diminished. HEART: Regular rate and rhythm. S1 and S2 heard. EXTREMITIES: Normal range of motion. No clubbing or cyanosis. Peripheral pulses intact. 1-2+ bilateral LE, improved. ASSESSMENT: Shortness of breath Acute on chronic heart failure with preserved ejection fraction Acute hypoxic respiratory failure requiring supplemental oxygen History of CVA in 2019 Diabetes Hypertension Normal coronary arteries, per cardiac catheterization in 2019 Hyperkalemia, resolved Acute kidney injury PLAN: Continue IV Lasix Daily weights, accurate I&O, and monitoring of kidney function Continue additional cardiac medications Wean oxygen as tolerated. Further recommendations pending patient's course Nurse practitioner note has been reviewed by physician. Signing provider agrees with the documented findings, assessment, and plan of care. Objective - Vital Signs Vital signs: Vital Signs Temp 97.4 F L 06/30/22 08:00 Pulse 64 06/30/22 08:00 Resp 18 06/30/22 08:00 BP 112/67 06/30/22 08:00 Pulse Ox 95 06/30/22 08:00 FiO2 Intake & Output 06/29/22 06/30/22 06/30/22 18:59 06:59 18:59 Intake Total 1200 960 Output Total 1400 1800 Balance -200 -840 Intake: Oral 1200 960 Output: Urine 1400 1800 Other: Voiding Method Urinal # Voids 4 - Labs CBC & Chem 7: 06/28/22 06:22 06/29/22 06:30 Labs: Abnormal Lab Results - Last 24 Hours (Table) 06/29/22 06/29/22 06/29/22 Range/Units 06:30 11:43 16:05 Chloride 94 L (96-109) mmol/L Carbon Dioxide 34.3 H (20.0-27.5) mmol/L BUN 30.6 H (9.0-27.0) mg/dL Est GFR (CKD-EPI)AfAm 58.6 L (60.0-200.0) Est GFR (CKD-EPI)NonAf 50.6 L (60.0-200.0) BUN/Creatinine Ratio 20.40 H (12.00-20.00) Ratio Glucose 136 H (70-110) mg/dL POC Glucose (mg/dL) 134 H 142 H (70-110) mg/dL Calcium 8.5 L (8.7-10.3) mg/dL 06/29/22 06/30/22 Range/Units 19:30 05:52 Chloride (96-109) mmol/L Carbon Dioxide (20.0-27.5) mmol/L BUN (9.0-27.0) mg/dL Est GFR (CKD-EPI)AfAm (60.0-200.0) Est GFR (CKD-EPI)NonAf (60.0-200.0) BUN/Creatinine Ratio (12.00-20.00) Ratio Glucose (70-110) mg/dL POC Glucose (mg/dL) 169 H 139 H (70-110) mg/dL Calcium (8.7-10.3) mg/dL Microbiology - Last 24 Hours (Table) 06/24/22 08:14 Blood Culture - Preliminary Blood No Growth after 120 hours 06/24/22 08:14 Blood Culture - Preliminary Blood No Growth after 120 hours
[2022-06-30] MEDS: SYMBICORT 80-4.5 MCG INHALER INHALATION SCH ×2 (08:42→19:12)
[2022-06-30] MEDS: IPRATROPIUM 0.5 MG/2.5 ML NEBU INHALATION SCH ×4 (08:42→19:12)
[2022-06-30 08:54] LABS: Anion Gap 10.8 mmol/L (10.00-18.00); Calcium 8.8 mg/dL (8.7-10.3); Carbon Dioxide 35.2 mmol/L (20.0-27.5); Magnesium 2.2 mg/dL (1.5-2.4); Non-African American GFR(CKD) 40.6 (60.0-200.0); Potassium 3.9 mmol/L (3.5-5.5)
[2022-06-30] MEDS: lisinopriL 20 MG TAB PO SCH (09:40)
[2022-06-30] MEDS: METOPROLOL SUCCINATE (ER) 50 MG TAB.ER.24H PO SCH (09:40)
[2022-06-30] MEDS: PREGABALIN 75 MG CAP PO SCH ×2 (09:40→22:19)
[2022-06-30] MEDS: HEPARIN SODIUM,PORCINE/PF 5,000 UNIT/0.5 ML SYRINGE SQ SCH ×2 (09:40→22:17)
[2022-06-30] MEDS: ASPIRIN 81 MG PO SCH (09:40)
--- NOTE | 2022-06-30 12:03 | P.PN ---
Subjective Patient is seen in follow-up for acute kidney injury. Renal function worse today. On IV Lasix. Nonoliguric. No chest pain or shortness of breath. On 7 L nasal cannula. Hemodynamically stable. No active complaints. Vital signs are stable. General: Awake. No acute distress. HEENT: Head exam is unremarkable. On nasal cannula. LUNGS: Breath sounds decreased. HEART: Rate and Rhythm are regular. ABDOMEN: Soft, obese. EXTREMITITES: 1+ edema. Objective - Vital Signs Vital signs: Vital Signs Temp 97.4 F L 06/30/22 08:00 Pulse 80 06/30/22 08:53 Resp 18 06/30/22 08:00 BP 112/67 06/30/22 08:00 Pulse Ox 95 06/30/22 08:00 FiO2 Intake & Output 06/29/22 06/30/22 06/30/22 18:59 06:59 18:59 Intake Total 1200 960 Output Total 1400 1800 Balance -200 -840 Intake: Oral 1200 960 Output: Urine 1400 1800 Stool 0 Other: Voiding Method Urinal Urinal # Voids 4 - Labs CBC & Chem 7: 06/28/22 06:22 06/30/22 06:20 Labs: Abnormal Lab Results - Last 24 Hours (Table) 06/29/22 06/29/22 06/30/22 Range/Units 16:05 19:30 05:52 Chloride (96-109) mmol/L Carbon Dioxide (20.0-27.5) mmol/L BUN (9.0-27.0) mg/dL Creatinine (0.6-1.5) mg/dL Est GFR (CKD-EPI)AfAm (60.0-200.0) Est GFR (CKD-EPI)NonAf (60.0-200.0) Glucose (70-110) mg/dL POC Glucose (mg/dL) 142 H 169 H 139 H (70-110) mg/dL 06/30/22 Range/Units 06:20 Chloride 94 L (96-109) mmol/L Carbon Dioxide 35.2 H (20.0-27.5) mmol/L BUN 36.0 H (9.0-27.0) mg/dL Creatinine 1.8 H (0.6-1.5) mg/dL Est GFR (CKD-EPI)AfAm 47.0 L (60.0-200.0) Est GFR (CKD-EPI)NonAf 40.6 L (60.0-200.0) Glucose 137 H (70-110) mg/dL POC Glucose (mg/dL) (70-110) mg/dL Microbiology - Last 24 Hours (Table) 06/24/22 08:14 Blood Culture - Final Blood No Growth after 144 hours 06/24/22 08:14 Blood Culture - Final Blood No Growth after 144 hours Assessment and Plan Plan: Assessment: 1. Acute kidney injury mostly prerenal secondary to cardiorenal syndrome. Renal function worse today - creatinine 1.8. No hydronephrosis noted on kidney ultrasound. UA benign. 2. Volume overload. Improving with diuresis. 3. Hyperkalemia secondary to acute kidney injury and lisinopril. Improved with medical management. 4. Diabetes mellitus. 5. Metabolic alkalosis from diuresis. Also respiratory alkalosis (based on ABG done 06/27/2022, expected pCO2 should be about 50-52). Alkalosis improved. Bi carb 34.3 today. 6. Acute on chronic diastolic CHF. Plan: Stop IV Lasix. Start oral torsemide 20 mg twice daily. Decrease lisinopril dose to 10 mg once daily and hold if systolic blood pressure less than 110. Low-salt diet. 1500 mL fluid restriction. Avoid nephrotoxins. Continue to monitor renal function and urine output. Repeat labs in the morning.
[2022-06-30 12:06] LABS: Glucose,Whole Blood 129 mg/dL (70-110)
--- NOTE | 2022-06-30 13:25 | P.PN ---
Subjective This is a pleasant 56 years old male with multiple medical problems presents with respiratory distress and acute hypoxic respiratory failure secondary to CHF Patient is kept on at the Lasix 40 mg 3 times a day with fluid restriction, His oxygen requirement trending down to 8 L/m today. Creatinine is stable at 1.4. Patient patient is being monitored closely by doper, art museum docent and art museum docent 06/30/2022 Patient breathing slightly and gradually improving, today his oxygen requirement down to 7 L/m,he is sitting in his chair with no new complaint Creatinine went up from baseline 1.3-1.5 up to 1.8. IV Lasix 40 mg 3 times a day was stopped and switched to oral torsemide. Also dose of lisinopril 20 mg lower to 10 mg daily. We will keep monitoring oxygen, blood pressure, creatinine and input and output. Objective - Vital Signs Vital signs: Vital Signs Temp 97.4 F L 06/30/22 08:00 Pulse 80 06/30/22 08:53 Resp 18 06/30/22 08:00 BP 112/67 06/30/22 08:00 Pulse Ox 95 06/30/22 08:00 FiO2 Intake & Output 06/29/22 06/30/22 06/30/22 18:59 06:59 18:59 Intake Total 1200 960 Output Total 1400 1800 Balance -200 -840 Intake: Oral 1200 960 Output: Urine 1400 1800 Stool 0 Other: Voiding Method Urinal Urinal # Voids 4 - Exam -GENERAL: The patient is alert and oriented x3, not in any acute distress. Morbidly obese HEENT: Pupils are round and equally reacting to light. EOMI. No scleral icterus. No conjunctival pallor. Normocephalic, atraumatic. No pharyngeal erythema. No thyromegaly. CARDIOVASCULAR: S1 and S2 present. No murmurs, rubs, or gallops. -PULMONARY: Chest is clear to auscultation, no wheezing.bilateral basal crackle s. ABDOMEN: Soft, nontender, nondistended, normoactive bowel sounds. No palpable organomegaly. MUSCULOSKELETAL: No joint swelling or deformity. -EXTREMITIES: No cyanosis, clubbing, bilateral pitting edema of the legs NEUROLOGICAL: Gross neurological examination did not reveal any focal deficits. SKIN: No rashes. no petechiae. - Labs CBC & Chem 7: 06/28/22 06:22 06/30/22 06:20 Labs: Abnormal Lab Results - Last 24 Hours (Table) 06/29/22 06/29/22 06/30/22 Range/Units 16:05 19:30 05:52 Chloride (96-109) mmol/L Carbon Dioxide (20.0-27.5) mmol/L BUN (9.0-27.0) mg/dL Creatinine (0.6-1.5) mg/dL Est GFR (CKD-EPI)AfAm (60.0-200.0) Est GFR (CKD-EPI)NonAf (60.0-200.0) Glucose (70-110) mg/dL POC Glucose (mg/dL) 142 H 169 H 139 H (70-110) mg/dL 06/30/22 06/30/22 Range/Units 06:20 12:02 Chloride 94 L (96-109) mmol/L Carbon Dioxide 35.2 H (20.0-27.5) mmol/L BUN 36.0 H (9.0-27.0) mg/dL Creatinine 1.8 H (0.6-1.5) mg/dL Est GFR (CKD-EPI)AfAm 47.0 L (60.0-200.0) Est GFR (CKD-EPI)NonAf 40.6 L (60.0-200.0) Glucose 137 H (70-110) mg/dL POC Glucose (mg/dL) 129 H (70-110) mg/dL Microbiology - Last 24 Hours (Table) 06/24/22 08:14 Blood Culture - Final Blood No Growth after 144 hours 06/24/22 08:14 Blood Culture - Final Blood No Growth after 144 hours Assessment and Plan Assessment: Acute diastolic CHF Acute on chronic hypoxic respiratory failure Morbid obesity with possible obstructive sleep apnea and obesity hypoventilation syndrome COPD with no acute exacerbation Kidney injury mostly cardiorenal syndrome Plan: Continue with IV Lasix Input output and creatinine Pulmonary cardiology and nephrology consult Labs and medication were reviewed.. Continue same treatment. Continue with symptomatic treatment. Resume home medication. Monitor labs and vitals. DVT and GI prophylaxis. Further recommendations as per clinical course of the patient DVT prophylaxis: Subcutaneous heparin GI Prophylaxis: Ppi PT/OT: Pending Prognosis is guarded
[2022-06-30 16:51] LABS: Glucose,Whole Blood 137 mg/dL (70-110)
--- NOTE | 2022-06-30 16:55 | P.PN ---
Subjective Progress Note Date: 06/30/22 This is a 56-year-old male patient, morbidly obese, who was recently admitted to [facility] for shortness of breath and he was discharged on oxygen at 3 L/m nasal cannula. The patient was admitted to our hospital because of worsening shortness of breath and increased in edema in lower extremities and abdominal distention and swelling. He was diagnosed having CHF with preserved LV function and the patient was given diuretics. During the course of his illness, creatinine went up to 1.5 and it subsequently improved and the most recent creatinine from today is at 1.36 and the patient is being given diuretics. The patient is in ex-smoker. He smoked marijuana and cigars in the past. He has not smoked tobacco on a regular basis. He is morbidly obese. He has a typical features of obstructive sleep apnea although this has not been pursued and has not been diagnosed and the patient not receiving any treatment. He has no angina. No palpitation. No significant cough or congestion. He has exertional dyspnea and his overall shortness of breath and progressively getting worse over time. He is currently on Lasix 40 mg IV every 8 hours. He is also on Diamox 250 mg by mouth twice a day. He is on oxygen at 15 L/m nasal cannula. Chest x-ray showed cardiomegaly and atelectatic change in lung bases and possibly small bilateral pleural effusions. Overall fluid balance over the past 24 hours has been -5.2 L. No previous history of DVT and pulmonary embolism. The patient states that he was given a ultrasound Doppler of the lower extremity at [facility] and the results were negative. The patient has no signs of any CO2 narcosis at this point in time. He is hemodynamically stable. On his blood work, his proBNP level was 1620, troponins were negative, his Covid 19 testing was negative and the patient has not received any vaccination for Covid 19. Liver function tests are essentially within normal limits. His total albumin is at 3.7 with a total protein of 6.8. UA is negative for any proteinuria. Echo of the heart shows a preserved LV function with an ejection fraction of 50-55%. No significant valvular abnormalities. Right sided cardiac structures were not accurately evaluated The patient is seen today 06/28/2022 in follow-up on the regular medical floor. He is currently sitting up in a chair at the bedside. Awake and alert in no a cute distress. Breathing a bit easier today compared to yesterday. currently maintaining O2 saturations in the 90s on 10 L high flow nasal cannula. He is afebrile. Hemodynamically stable. Computed tomography scan of the chest revealed patchy bibasilar linear consolidation with air bronchograms suggestive of atelectasis but cannot totally exclude a superimposed infection. Mildly enlarged sub-carinal lymph nodes likely reactive. Mild cardiomegaly. Blood cultures revealed no growth. White count 4.9. Hemoglobin 12.8. Platelet 169. Sodium 141. Potassium 4.1. Bicarb 36. Pro calcitonin 0.05. He is currently on Lasix 40 mg IV every 8 hours. He is currently in a -5.2 L balance. He is down 7 kilograms per weight. He is continued on Symbicort, Atrovent. He remains on Diamox. On 06/29/2022, the patient reports that he is improving. He is less short of breath. The oxygenation is also improved and she is currently on 8 L O2 nasal cannula and there is ongoing improvement in the patient's oxygenation. Meanwhile, the patient has no chest pain. Less congestion and wheezing on examination of the patient is still on diuretics and the patient is receiving Lasix 40 mg IV 3 times a day. On the blood work, the patient's BUN is at 30 with a creatinine of 1.5 and sodium levels of 139 and a potassium level is at 4.0. The fluid balance over the past 24 hours is -1.9 L. The CAT scan of the chest that was done on 06/25/2022 showed some patchy bibasilar consolidation with air bronchograms suggestive of atelectasis. Afebrile. Hemodynamically stable. No other new complaints. He remains on Lasix 40 mg IV every 8 hours. 06/30/2022, patient is being seen for a follow-up. Patient has no specific complaints. The patient is currently on 10 L of Oxymizer nasal cannula. His creatinine is on the right and the patient was being diuresed with IV Lasix 40 mg IV 3 times a day and this was stopped and the patient was switched to oral torsemide. He is being monitored accordingly. The patient has no other new complaints for now. Objective - Vital Signs Vital signs: Vital Signs Temp 97.5 F L 06/30/22 14:00 Pulse 83 11/25/22 15:27 Resp 18 06/30/22 14:00 BP 125/68 06/30/22 14:00 Pulse Ox 92 L 06/30/22 14:00 FiO2 Intake & Output 06/29/22 06/30/22 06/30/22 18:59 06:59 18:59 Intake Total 1200 960 Output Total 1400 1800 Balance -200 -840 Intake: Oral 1200 960 Output: Urine 1400 1800 Stool 0 Other: Voiding Method Urinal Urinal # Voids 4 - Exam Pleasant, 56-year-old male patient, morbidly obese, comfortable no acute distress, BMI of 55, currently on 8 L O2 nasal cannula Head exam was generally normal. There was no scleral icterus or corneal arcus. Mucous membranes were moist. Neck was supple and without jugular venous distension, thyromegaly, or carotid bruits. Carotids were easily palpable bilaterally. There was no adenopathy. Mallampati class IV with significant crowding of the posterior oropharynx Lungs sounds are showing diminished breath sounds bilaterally in the lung bases along with some bibasilar crackles Heart sounds are distant, regular, no significant murmurs appreciated Abdomen is morbidly obese and organs cannot be accurately palpated. No direct tenderness abundance or guarding Extremities revealed +1 pitting edema, no cyanosis or clubbing Examination of the skin revealed no evidence of significant rashes, suspicious appearing nevi or other concerning lesions. Neurologically, the patient is awake and alert and the patient does not have any focal neurological deficit. Cranial nerves are essentially intact. - Labs CBC & Chem 7: 06/28/22 06:22 06/30/22 06:20 Labs: Abnormal Lab Results - Last 24 Hours (Table) 06/29/22 06/30/22 06/30/22 Range/Units 19:30 05:52 06:20 Chloride 94 L (96-109) mmol/L Carbon Dioxide 35.2 H (20.0-27.5) mmol/L BUN 36.0 H (9.0-27.0) mg/dL Creatinine 1.8 H (0.6-1.5) mg/dL Est GFR (CKD-EPI)AfAm 47.0 L (60.0-200.0) Est GFR (CKD-EPI)NonAf 40.6 L (60.0-200.0) Glucose 137 H (70-110) mg/dL POC Glucose (mg/dL) 169 H 139 H (70-110) mg/dL 06/30/22 06/30/22 Range/Units 12:02 16:48 Chloride (96-109) mmol/L Carbon Dioxide (20.0-27.5) mmol/L BUN (9.0-27.0) mg/dL Creatinine (0.6-1.5) mg/dL Est GFR (CKD-EPI)AfAm (60.0-200.0) Est GFR (CKD-EPI)NonAf (60.0-200.0) Glucose (70-110) mg/dL POC Glucose (mg/dL) 129 H 137 H (70-110) mg/dL Microbiology - Last 24 Hours (Table) 06/24/22 08:14 Blood Culture - Final Blood No Growth after 144 hours 06/24/22 08:14 Blood Culture - Final Blood No Growth after 144 hours Assessment and Plan Assessment: Acute hypoxic respiratory failure. The patient was initially hospitalized at [facility] for almost a week and following that he was discharged on oxygen to be readmitted to our hospital. The patient's oxygen patient is to worsen the patient is currently on a L of oxygen by nasal cannula. There is evidence of fluid overload and edema consistent with CHF/diastolic dysfunction/preserved LV function. The patient may have also an underlying right-sided heart failure due to his chronic hypoxic/hypercapnic respiratory failure and the patient has increased edema and third spacing. Possibility of underlying pneumonia and possibility of underlying atelectasis in the lung bases under good into the patient's shortness of breath and hypoxemia cannot be completely excluded. Computed tomography scan of the chest revealed patchy by basilar linear consolidation with air bronchograms suggested more so of atelectasis. Pro-calcitonin is 0.05.. The patient remains in a negative fluid balance. The patient remains on Lasix 40 mg IV every 8 hours and the patient continues to improve clinically Chronic hypoxic respiratory failure Morbid obesity with a BMI 55 Ostructive sleep apnea with possibility of an underlying obesity hypoventilation syndrome on clinical grounds. COPD, maintain on Trelegy Ellipta on outpatient basis Hypertension Diabetes mellitus Chronic lower extremity edema Chronic stage III kidney disease versus an acute kidney injury History of CVA back in 2019 and the patient walks without a walker Normal coronaries based on the cardiac catheterization from 2019 Acute kidney injury on top of chronic kidney failure secondary to diuresis Plan: Continue same treatment Discontinue the IV Solu-Medrol the patient on Demadex Diuresing well Continue to titrate the FiO2 as tolerated, and the patient is being rapidly weaned off the FiO2 Continue Symbicort, Albuterol Use incentive spirometer aggressively We will continue to follow
[2022-06-30 20:30] LABS: Glucose,Whole Blood 136 mg/dL (70-110)
[2022-06-30] MEDS: traZODone HCL 50 MG TAB PO SCH (22:17)
[2022-06-30] MEDS: AMITRIPTYLINE HCL 10 MG TAB PO SCH (22:19)
[2022-06-30] MEDS: TORSEMIDE 20 MG TAB PO SCH (22:29)
[2022-07-01 06:22] LABS: Glucose,Whole Blood 135 mg/dL (70-110)
--- NOTE | 2022-07-01 08:29 | P.PN ---
Subjective Progress Note Date: 07/01/22 Principal diagnosis: This 56-year-old obese male seen for acute kidney injury secondary to cardiorenal syndrome is on diuretics. He is doing much better subjectively less short of breath edema is improved has made significant amount of urine over the last 2 days. Denies any dizziness on standing up and is able to walk History of present illness: Patient is a 56-year-old male seen in renal consultation for acute kidney injury. Patient's baseline creatinine is near 1 and was elevated at 1.34 yesterday. Patient came to the hospital due to shortness of breath. Patient states shortness of breath has been worsening over the last 2 weeks but he was delaying coming to the hospital. Patient states he was recently admitted at another facility with similar complaints. He is currently on IV Lasix. States shortness of breath is improving. He also complains of swelling in lower extremities which she states is not improving with diuresis. He has long- standing history of diabetes. Denies use of nonsteroidals. Denies chest pain. No vomiting or diarrhea. No fever or chills. Oral intake is good. Denies family history of renal disease. No hematuria. Denies history of coronary artery disease. Potassium was also high at 6.6 on admission and was down to 5.1 as of last night. He was taking lisinopril outpatient which is currently held. Objective - Vital Signs Vital signs: Vital Signs Temp 98.0 F 07/01/22 02:00 Pulse 77 07/01/22 02:00 Resp 20 07/01/22 02:00 BP 136/68 07/01/22 02:00 Pulse Ox 92 L 07/01/22 02:00 FiO2 Intake & Output 06/30/22 07/01/22 07/01/22 18:59 06:59 18:59 Intake Total 1788 600 Output Total 3550 1550 Balance -1762 -950 Weight 135.5 kg Intake: Oral 1788 600 Output: Urine 3550 1550 Stool 0 0 Other: Voiding Method Urinal Urinal On examination is awake alert oriented HEENT exam no JVP neck is supple no facial asymmetry Lungs are significant for bilateral fine crackles at bases not clear but cough good air entry bilaterally Heart sounds unremarkable for any murmur rub gallop Abdomen is obese nontender Extreme exam was 2+ edema Neurologically awake alert oriented - Labs CBC & Chem 7: 06/28/22 06:22 06/30/22 06:20 Labs: Abnormal Lab Results - Last 24 Hours (Table) 06/30/22 06/30/22 06/30/22 Range/Units 06:20 12:02 16:48 Chloride 94 L (96-109) mmol/L Carbon Dioxide 35.2 H (20.0-27.5) mmol/L BUN 36.0 H (9.0-27.0) mg/dL Creatinine 1.8 H (0.6-1.5) mg/dL Est GFR (CKD-EPI)AfAm 47.0 L (60.0-200.0) Est GFR (CKD-EPI)NonAf 40.6 L (60.0-200.0) Glucose 137 H (70-110) mg/dL POC Glucose (mg/dL) 129 H 137 H (70-110) mg/dL 06/30/22 07/01/22 Range/Units 20:26 06:20 Chloride (96-109) mmol/L Carbon Dioxide (20.0-27.5) mmol/L BUN (9.0-27.0) mg/dL Creatinine (0.6-1.5) mg/dL Est GFR (CKD-EPI)AfAm (60.0-200.0) Est GFR (CKD-EPI)NonAf (60.0-200.0) Glucose (70-110) mg/dL POC Glucose (mg/dL) 136 H 135 H (70-110) mg/dL Microbiology - Last 24 Hours (Table) 06/24/22 08:14 Blood Culture - Final Blood No Growth after 144 hours 06/24/22 08:14 Blood Culture - Final Blood No Growth after 144 hours Assessment and Plan Plan: Assessment: 1. Acute kidney injury mostly prerenal secondary to cardiorenal syndrome. Renal function worse yesterday- creatinine 1.8. No hydronephrosis noted on kidney ultrasound. UA benign. Continues to have good urine output last are pending today 2. Volume overload. Improving with diuresis. 3. Hyperkalemia secondary to acute kidney injury and lisinopril. Improved with medical management. 4. Diabetes mellitus. 5. Metabolic alkalosis from diuresis. Bicarb went as of yesterday was 35 on last pending today 6. Acute on chronic diastolic CHF. Plan: Continue oral torsemide 20 mg twice daily. Continue lisinopril dose to 10 mg once daily and hold if systolic blood pressure less than 110. Low-salt diet. 1500 mL fluid restriction. Avoid nephrotoxins. Continue to monitor renal function and urine output. Repeat labs in the morning.
[2022-07-01] MEDS: HEPARIN SODIUM,PORCINE/PF 5,000 UNIT/0.5 ML SYRINGE SQ SCH ×2 (08:43→21:28)
[2022-07-01] MEDS: ASPIRIN 81 MG PO SCH (08:43)
[2022-07-01] MEDS: PREGABALIN 75 MG CAP PO SCH ×2 (08:43→21:28)
[2022-07-01] MEDS: METOPROLOL SUCCINATE (ER) 50 MG TAB.ER.24H PO SCH (08:43)
[2022-07-01] MEDS: PANTOPRAZOLE 40 MG TABLET PO SCH (08:43)
[2022-07-01] MEDS: lisinopriL 10 MG TAB PO SCH (08:43)
[2022-07-01] MEDS: TORSEMIDE 20 MG TAB PO SCH ×2 (08:44→21:28)
[2022-07-01] MEDS: SYMBICORT 80-4.5 MCG INHALER INHALATION SCH ×2 (08:58→19:34)
[2022-07-01] MEDS: IPRATROPIUM 0.5 MG/2.5 ML NEBU INHALATION SCH ×4 (08:58→19:34)
[2022-07-01 10:13] LABS: African American GFR (CKD) 48 (>60 ml/min/1.73 sqM); Anion Gap 11 mmol/L; Blood Urea Nitrogen 47 mg/dL (9-20); Carbon Dioxide 34 mmol/L (22-30); Chloride 93 mmol/L (98-107); Glucose 228 mg/dL (74-99); Magnesium 2.1 mg/dL (1.6-2.3); Non-African American GFR(CKD) 42 (>60 ml/min/1.73 sqM); Potassium 3.7 mmol/L (3.5-5.1); Sodium 138 mmol/L (137-145)
[2022-07-01 11:28] LABS: Glucose,Whole Blood 200 mg/dL (70-110)
--- NOTE | 2022-07-01 12:00 | P.PN ---
Subjective This is a pleasant 56 years old male with multiple medical problems presents with respiratory distress and acute hypoxic respiratory failure secondary to CHF Patient is kept on at the Lasix 40 mg 3 times a day with fluid restriction, His oxygen requirement trending down to 8 L/m today. Creatinine is stable at 1.4. Patient patient is being monitored closely by equine pharmacology technician, issue clerk and issue clerk 06/30/2022 Patient breathing slightly and gradually improving, today his oxygen requirement down to 7 L/m,he is sitting in his chair with no new complaint Creatinine went up from baseline 1.3-1.5 up to 1.8. IV Lasix 40 mg 3 times a day was stopped and switched to oral torsemide. Also dose of lisinopril 20 mg lower to 10 mg daily. We will keep monitoring oxygen, blood pressure, creatinine and input and output. 07/01/2022 Patient breathing is improving every day and gradually, his oxygen requirements downtown for later permanent this morning. No new complaints. Vitas looks stable Creatinine slightly down to 1.7. Patient remains off Lasix and he is on torsemide, lisinopril 10 mg and metoprolol 50 mg Patient wants to find a new PCP Objective - Vital Signs Vital signs: Vital Signs Temp 98.1 F 07/01/22 10:09 Pulse 79 07/01/22 10:09 Resp 20 07/01/22 10:09 BP 115/81 07/01/22 10:09 Pulse Ox 92 L 07/01/22 10:09 FiO2 Intake & Output 06/30/22 07/01/22 07/01/22 18:59 06:59 18:59 Intake Total 1788 600 118 Output Total 3550 1550 450 Balance -1762 -950 -332 Weight 135.5 kg Intake: Oral 1788 600 118 Output: Urine 3550 1550 450 Stool 0 0 Other: Voiding Method Urinal Urinal - Exam -GENERAL: The patient is alert and oriented x3, not in any acute distress. Morbidly obese HEENT: Pupils are round and equally reacting to light. EOMI. No scleral icterus. No conjunctival pallor. Normocephalic, atraumatic. No pharyngeal erythema. No thyromegaly. CARDIOVASCULAR: S1 and S2 present. No murmurs, rubs, or gallops. -PULMONARY: Chest is clear to auscultation, no wheezing.bilateral basal crackles. ABDOMEN: Soft, nontender, nondistended, normoactive bowel sounds. No palpable organomegaly. MUSCULOSKELETAL: No joint swelling or deformity. -EXTREMITIES: No cyanosis, clubbing, bilateral pitting edema of the legs NEUROLOGICAL: Gross neurological examination did not reveal any focal deficits. SKIN: No rashes. no petechiae. - Labs CBC & Chem 7: 06/28/22 06:22 07/01/22 09:24 Labs: Abnormal Lab Results - Last 24 Hours (Table) 06/30/22 06/30/22 06/30/22 Range/Units 12:02 16:48 20:26 Chloride (98-107) mmol/L Carbon Dioxide (22-30) mmol/L BUN (9-20) mg/dL Creatinine (0.66-1.25) mg/dL Glucose (74-99) mg/dL POC Glucose (mg/dL) 129 H 137 H 136 H (70-110) mg/dL Calcium (8.4-10.2) mg/dL 07/01/22 07/01/22 07/01/22 Range/Units 06:20 09:24 11:27 Chloride 93 L (98-107) mmol/L Carbon Dioxide 34 H (22-30) mmol/L BUN 47 H (9-20) mg/dL Creatinine 1.77 H (0.66-1.25) mg/dL Glucose 228 H (74-99) mg/dL POC Glucose (mg/dL) 135 H 200 H (70-110) mg/dL Calcium 8.0 L (8.4-10.2) mg/dL Microbiology - Last 24 Hours (Table) 06/24/22 08:14 Blood Culture - Final Blood No Growth after 144 hours 06/24/22 08:14 Blood Culture - Final Blood No Growth after 144 hours Assessment and Plan Assessment: Acute diastolic CHF Acute on chronic hypoxic respiratory failure Morbid obesity with possible obstructive sleep apnea and obesity hypoventilation syndrome COPD with no acute exacerbation Kidney injury mostly cardiorenal syndrome Plan: discontinue IV Lasix and continue with torsemide Continue with lisinopril half the dose to 20 mg down to 10 mg patient also on metoprolol 50 mg. Input output and creatinine Pulmonary cardiology and nephrology consult Labs and medication were reviewed.. Continue same treatment. Continue with symptomatic treatment. Resume home medication. Monitor labs and vitals. DVT and GI prophylaxis. Further recommendations as per clinical course of the patient DVT prophylaxis: Subcutaneous heparin GI Prophylaxis: Ppi PT/OT: Pending Prognosis is guarded
--- NOTE | 2022-07-01 16:25 | P.PN ---
Subjective Progress Note Date: 07/01/22 This is a 56-year-old male patient, morbidly obese, who was recently admitted to [facility] for shortness of breath and he was discharged on oxygen at 3 L/m nasal cannula. The patient was admitted to our hospital because of worsening shortness of breath and increased in edema in lower extremities and abdominal distention and swelling. He was diagnosed having CHF with preserved LV function and the patient was given diuretics. During the course of his illness, creatinine went up to 1.5 and it subsequently improved and the most recent creatinine from today is at 1.36 and the patient is being given diuretics. The patient is in ex-smoker. He smoked marijuana and cigars in the past. He has not smoked tobacco on a regular basis. He is morbidly obese. He has a typical features of obstructive sleep apnea although this has not been pursued and has not been diagnosed and the patient not receiving any treatment. He has no angina. No palpitation. No significant cough or congestion. He has exertional dyspnea and his overall shortness of breath and progressively getting worse over time. He is currently on Lasix 40 mg IV every 8 hours. He is also on Diamox 250 mg by mouth twice a day. He is on oxygen at 15 L/m nasal cannula. Chest x-ray showed cardiomegaly and atelectatic change in lung bases and possibly small bilateral pleural effusions. Overall fluid balance over the past 24 hours has been -5.2 L. No previous history of DVT and pulmonary embolism. The patient states that he was given a ultrasound Doppler of the lower extremity at [facility] and the results were negative. The patient has no signs of any CO2 narcosis at this point in time. He is hemodynamically stable. On his blood work, his proBNP level was 1620, troponins were negative, his Covid 19 testing was negative and the patient has not received any vaccination for Covid 19. Liver function tests are essentially within normal limits. His total albumin is at 3.7 with a total protein of 6.8. UA is negative for any proteinuria. Echo of the heart shows a preserved LV function with an ejection fraction of 50-55%. No significant valvular abnormalities. Right sided cardiac structures were not accurately evaluated The patient is seen today 06/28/2022 in follow-up on the regular medical floor. He is currently sitting up in a chair at the bedside. Awake and alert in no a cute distress. Breathing a bit easier today compared to yesterday. currently maintaining O2 saturations in the 90s on 10 L high flow nasal cannula. He is afebrile. Hemodynamically stable. Computed tomography scan of the chest revealed patchy bibasilar linear consolidation with air bronchograms suggestive of atelectasis but cannot totally exclude a superimposed infection. Mildly enlarged sub-carinal lymph nodes likely reactive. Mild cardiomegaly. Blood cultures revealed no growth. White count 4.9. Hemoglobin 12.8. Platelet 169. Sodium 141. Potassium 4.1. Bicarb 36. Pro calcitonin 0.05. He is currently on Lasix 40 mg IV every 8 hours. He is currently in a -5.2 L balance. He is down 7 kilograms per weight. He is continued on Symbicort, Atrovent. He remains on Diamox. On 06/29/2022, the patient reports that he is improving. He is less short of breath. The oxygenation is also improved and she is currently on 8 L O2 nasal cannula and there is ongoing improvement in the patient's oxygenation. Meanwhile, the patient has no chest pain. Less congestion and wheezing on examination of the patient is still on diuretics and the patient is receiving Lasix 40 mg IV 3 times a day. On the blood work, the patient's BUN is at 30 with a creatinine of 1.5 and sodium levels of 139 and a potassium level is at 4.0. The fluid balance over the past 24 hours is -1.9 L. The CAT scan of the chest that was done on 06/25/2022 showed some patchy bibasilar consolidation with air bronchograms suggestive of atelectasis. Afebrile. Hemodynamically stable. No other new complaints. He remains on Lasix 40 mg IV every 8 hours. 06/30/2022, patient is being seen for a follow-up. Patient has no specific complaints. The patient is currently on 10 L of Oxymizer nasal cannula. His creatinine is on the right and the patient was being diuresed with IV Lasix 40 mg IV 3 times a day and this was stopped and the patient was switched to oral torsemide. He is being monitored accordingly. The patient has no other new complaints for now. 07/01/2022, the patient is currently on Demadex 20 mg by mouth twice a day. The patient is on oxygen 3 L/m nasal cannula. The patient is calm and comfortable. The patient is in a negative fluid balance of 2.7 L over the past 24 hours. He is doing well. No specific complaints. Echocardiogram showed a preserved LV function. His BUN is at 47 with a creatinine of 1.7 and a sodium level is at 138. Objective - Vital Signs Vital signs: Vital Signs Temp 97.9 F 07/01/22 14:00 Pulse 86 07/01/22 15:46 Resp 20 07/01/22 14:00 BP 99/58 07/01/22 14:00 Pulse Ox 95 07/01/22 14:00 FiO2 Intake & Output 06/30/22 07/01/22 07/01/22 18:59 06:59 18:59 Intake Total 1788 600 118 Output Total 3550 1550 450 Balance -1762 -950 -332 Weight 135.5 kg Intake: Oral 1788 600 118 Output: Urine 3550 1550 450 Stool 0 0 Other: Voiding Method Urinal Urinal - Exam Pleasant, 56-year-old male patient, morbidly obese, comfortable no acute distress, BMI of 55, currently on 3L O2 nasal cannula Head exam was generally normal. There was no scleral icterus or corneal arcus. Mucous membranes were moist. Neck was supple and without jugular venous distension, thyromegaly, or carotid bruits. Carotids were easily palpable bilaterally. There was no adenopathy. Mallampati class IV with significant crowding of the posterior oropharynx Lungs sounds are showing diminished breath sounds bilaterally in the lung bases along with some bibasilar crackles Heart sounds are distant, regular, no significant murmurs appreciated Abdomen is morbidly obese and organs cannot be accurately palpated. No direct tenderness abundance or guarding Extremities revealed +1 pitting edema, no cyanosis or clubbing Examination of the skin revealed no evidence of significant rashes, suspicious appearing nevi or other concerning lesions. Neurologically, the patient is awake and alert and the patient does not have any focal neurological deficit. Cranial nerves are essentially intact. - Labs CBC & Chem 7: 06/28/22 06:22 07/01/22 09:24 Labs: Abnormal Lab Results - Last 24 Hours (Table) 06/30/22 06/30/22 07/01/22 Range/Units 16:48 20:26 06:20 Chloride (98-107) mmol/L Carbon Dioxide (22-30) mmol/L BUN (9-20) mg/dL Creatinine (0.66-1.25) mg/dL Glucose (74-99) mg/dL POC Glucose (mg/dL) 137 H 136 H 135 H (70-110) mg/dL Calcium (8.4-10.2) mg/dL 07/01/22 07/01/22 Range/Units 09:24 11:27 Chloride 93 L (98-107) mmol/L Carbon Dioxide 34 H (22-30) mmol/L BUN 47 H (9-20) mg/dL Creatinine 1.77 H (0.66-1.25) mg/dL Glucose 228 H (74-99) mg/dL POC Glucose (mg/dL) 200 H (70-110) mg/dL Calcium 8.0 L (8.4-10.2) mg/dL Assessment and Plan Assessment: Acute hypoxic respiratory failure. The patient was initially hospitalized at [facility] for almost a week and following that he was discharged on oxygen to be readmitted to our hospital. The patient's oxygen patient is to worsen the patient is currently on a L of oxygen by nasal cannula. There is evidence of fluid overload and edema consistent with CHF/diastolic dysfunction/preserved LV function. The patient may have also an underlying right-sided heart failure due to his chronic hypoxic/hypercapnic respiratory failure and the patient has increased edema and third spacing. Possibility of underlying pneumonia and possibility of underlying atelectasis in the lung bases under good into the patient's shortness of breath and hypoxemia cannot be completely excluded. Computed tomography scan of the chest revealed patchy by basilar linear consolidation with air bronchograms suggested more so of atelectasis. Pro-calcitonin is 0.05.. The patient remains in a negative fluid balance. The patient remains on Demadex and Lasix IV was discontinued Chronic hypoxic respiratory failure Morbid obesity with a BMI 55 Ostructive sleep apnea with possibility of an underlying obesity hypoventilation syndrome on clinical grounds. COPD, maintain on Trelegy Ellipta on outpatient basis Hypertension Diabetes mellitus Chronic lower extremity edema Chronic stage III kidney disease versus an acute kidney injury History of CVA back in 2019 and the patient walks without a walker Normal coronaries based on the cardiac catheterization from 2019 Acute kidney injury on top of chronic kidney failure secondary to diuresis Plan: The patient continues to diabetes very well on Demadex Continue same treatment Patient is a negative fluid balance Diuresing well Creatinine is stable at 1.7 Continue to titrate the FiO2 as tolerated, and the patient is being rapidly weaned off the FiO2, currently he is down to 3 L of O2 nasal cannula Increase mobility Continue Symbicort, Albuterol Use incentive spirometer aggressively We will continue to follow
[2022-07-01 16:45] LABS: Glucose,Whole Blood 148 mg/dL (70-110)
--- NOTE | 2022-07-01 17:52 | P.PN ---
Subjective HISTORY OF PRESENT ILLNESS: This is a 56-year-old male who is admitted to the hospital secondary to congestive heart failure. Patient examined this morning at the bedside. Patient denies chest pain or pressure. He continues to report shortness of breath. He remains on IV Lasix. He reports improvement in his lower extremity edema. Vital signs are stable. 06/27/2022 Patient examined this morning at the bedside. Patient denies chest pain or pressure. He reports improvement in his shortness of breath. Patient remains on IV Lasix. BUN 32. Creatinine 1.36. Carbon dioxide 42. Patient does not have accurate intake and output documented. Patient remains on 15 L high flow nasal cannula. 2-D echo completed revealing ejection fraction 50-55% with mild mitral regurgitation. 06/28/2022 Patient examined this morning. Patient is sitting up in the chair. He denies chest pain or pressure. He reports improvement in his shortness of breath. He remains on IV Lasix. Fluid balance over the last 24 hours is +380 mL. Creatinine today is 1.5, up from 1.36 yesterday. Patient remains on 11L NC. 06/30/2022 Patient examined this morning at the bedside. Patient denies chest pain or pressure. He reports improvement in his breathing. Patient is currently on 5 L nasal cannula. He remains on IV Lasix. Kidney function from this morning is currently pending. Fluid balance over the last 24 hours is -200 mL. 07/01 Patient seen and examined. Patient transitioned over to oral torsemide. No chest pain or pressure. States his lower extremity edema continues to improve. His had good urine output. Cr 1.77 today PHYSICAL EXAM: VITAL SIGNS: Reviewed. GENERAL: Well-developed in no acute distress. NECK: Supple. No JVD or thyromegaly LUNGS: Respirations even and unlabored. Lungs essentially clear to auscultation bilaterally, diminished. HEART: Regular rate and rhythm. S1 and S2 heard. EXTREMITIES: Normal range of motion. No clubbing or cyanosis. Peripheral pulses intact. 1-2+ bilateral LE, improved. ASSESSMENT: Shortness of breath Acute on chronic heart failure with preserved ejection fraction Acute hypoxic respiratory failure requiring supplemental oxygen History of CVA in 2019 Diabetes Hypertension Normal coronary arteries, per cardiac catheterization in 2019 Hyperkalemia, resolved Acute kidney injury PLAN: Continue oral torsemide Daily weights, accurate I&O, and monitoring of kidney function Continue additional cardiac medications Wean oxygen as tolerated. Further recommendations pending patient's course Objective - Vital Signs Vital signs: Vital Signs Temp 97.9 F 07/01/22 14:00 Pulse 86 07/01/22 15:46 Resp 20 07/01/22 14:00 BP 99/58 07/01/22 14:00 Pulse Ox 95 07/01/22 14:00 FiO2 Intake & Output 06/30/22 07/01/22 07/01/22 18:59 06:59 18:59 Intake Total 1788 600 118 Output Total 3550 1550 450 Balance -1762 -950 -332 Weight 135.5 kg Intake: Oral 1788 600 118 Output: Urine 3550 1550 450 Stool 0 0 Other: Voiding Method Urinal Urinal - Labs CBC & Chem 7: 06/28/22 06:22 07/01/22 09:24 Labs: Abnormal Lab Results - Last 24 Hours (Table) 06/30/22 07/01/22 07/01/22 Range/Units 20:26 06:20 09:24 Chloride 93 L (98-107) mmol/L Carbon Dioxide 34 H (22-30) mmol/L BUN 47 H (9-20) mg/dL Creatinine 1.77 H (0.66-1.25) mg/dL Glucose 228 H (74-99) mg/dL POC Glucose (mg/dL) 136 H 135 H (70-110) mg/dL Calcium 8.0 L (8.4-10.2) mg/dL 07/01/22 07/01/22 Range/Units 11:27 16:43 Chloride (98-107) mmol/L Carbon Dioxide (22-30) mmol/L BUN (9-20) mg/dL Creatinine (0.66-1.25) mg/dL Glucose (74-99) mg/dL POC Glucose (mg/dL) 200 H 148 H (70-110) mg/dL Calcium (8.4-10.2) mg/dL
[2022-07-01] MEDS ORDERED: MIDODRINE 5 MG TAB PO PRN (20:01)
[2022-07-01 20:18] LABS: Glucose,Whole Blood 143 mg/dL (70-110)
[2022-07-01] MEDS: AMITRIPTYLINE HCL 10 MG TAB PO SCH (21:28)
[2022-07-01] MEDS: traZODone HCL 50 MG TAB PO SCH (21:29)
[2022-07-02 05:47] LABS: Glucose,Whole Blood 147 mg/dL (70-110)
[2022-07-02 06:56] LABS: Glucose,Whole Blood 138 mg/dL (70-110)
[2022-07-02] MEDS: SYMBICORT 80-4.5 MCG INHALER INHALATION SCH ×2 (08:07→20:17)
[2022-07-02] MEDS: IPRATROPIUM 0.5 MG/2.5 ML NEBU INHALATION SCH ×4 (08:07→20:17)
--- NOTE | 2022-07-02 08:20 | P.PN ---
Subjective Progress Note Date: 07/02/22 Principal diagnosis: This 56-year-old obese male seen for acute kidney injury secondary to cardiorenal syndrome is on diuretics. He is doing much better subjectively less short of breath edema is improved has made significant amount of urine over the last 2 days. Denies any dizziness on standing up and is able to walk His urine output was 5100 mL yesterday, and is 1725 this morning. Continues to have significant edema as well as bilateral crackles History of present illness: Patient is a 56-year-old male seen in renal consultation for acute kidney injury. Patient's baseline creatinine is near 1 and was elevated at 1.34 yesterday. Patient came to the hospital due to shortness of breath. Patient states shortness of breath has been worsening over the last 2 weeks but he was delaying coming to the hospital. Patient states he was recently admitted at another facility with similar complaints. He is currently on IV Lasix. States shortness of breath is improving. He also complains of swelling in lower extremities which she states is not improving with diuresis. He has long- standing history of diabetes. Denies use of nonsteroidals. Denies chest pain. No vomiting or diarrhea. No fever or chills. Oral intake is good. Denies family history of renal disease. No hematuria. Denies history of coronary artery disease. Potassium was also high at 6.6 on admission and was down to 5.1 as of last night. He was taking lisinopril outpatient which is currently held. Objective - Vital Signs Vital signs: Vital Signs Temp 97.8 F 07/02/22 02:00 Pulse 64 07/02/22 08:09 Resp 16 07/02/22 02:00 BP 111/68 07/02/22 02:00 Pulse Ox 91 L 07/02/22 08:09 FiO2 Intake & Output 07/01/22 07/02/22 07/02/22 18:59 06:59 18:59 Intake Total 236 1063 Output Total 450 1275 Balance -214 -212 Intake: Oral 236 1063 Output: Urine 450 1275 Stool 0 Other: Voiding Method Urinal On examination awake alert oriented HEENT exam no JVP neck is supple no facial asymmetry Lungs are significant for bilateral coarse crackles at bases fair air entry bilaterally Heart sounds unremarkable for any murmur rub gallop Abdomen is soft obese difficult exam Extremity examination 2-3+ edema. Neurologically awake alert oriented. Able to stand up without any dizziness - Labs CBC & Chem 7: 06/28/22 06:22 07/01/22 09:24 Labs: Abnormal Lab Results - Last 24 Hours (Table) 07/01/22 07/01/22 07/01/22 Range/Units 09:24 11: 16:43 Chloride 93 L (98-107) mmol/L Carbon Dioxide 34 H (22-30) mmol/L BUN 47 H (9-20) mg/dL Creatinine 1.77 H (0.66-1.25) mg/dL Glucose 228 H (74-99) mg/dL POC Glucose (mg/dL) 200 H 148 H (70-110) mg/dL Calcium 8.0 L (8.4-10.2) mg/dL 07/01/22 07/02/22 07/02/22 Range/Units 20:16 05:46 06:55 Chloride (98-107) mmol/L Carbon Dioxide (22-30) mmol/L BUN (9-20) mg/dL Creatinine (0.66-1.25) mg/dL Glucose (74-99) mg/dL POC Glucose (mg/dL) 143 H 147 H 138 H (70-110) mg/dL Calcium (8.4-10.2) mg/dL Assessment and Plan Plan: Assessment: 1. Acute kidney injury mostly prerenal secondary to cardiorenal syndrome. Renal function is stable with creatinine 1.8, 1.7 cm the last 2 days but today's labs are pending. No hydronephrosis noted on kidney ultrasound. UA benign. Continues to have good urine output on torsemide 20 mg twice a day 2. Volume overload. Improving with diuresis. 3. Hyperkalemia secondary to acute kidney injury and lisinopril. Stable potassium. 4. Diabetes mellitus. 5. Metabolic alkalosis from diuresis. Bicarb went as of yesterday was 34 on last pending today 6. Acute on chronic diastolic CHF. Plan: Continue oral torsemide 20 mg twice daily. Continue lisinopril 10 mg once daily and hold if systolic blood pressure less than 110. Low-salt diet. 1500 mL fluid restriction. Avoid nephrotoxins. Continue to monitor renal function and urine output. Repeat labs in the morning.
[2022-07-02] MEDS: METOPROLOL SUCCINATE (ER) 50 MG TAB.ER.24H PO SCH (08:50)
[2022-07-02] MEDS: PANTOPRAZOLE 40 MG TABLET PO SCH (08:50)
[2022-07-02] MEDS: ASPIRIN 81 MG PO SCH (08:50)
[2022-07-02] MEDS: lisinopriL 10 MG TAB PO SCH (08:50)
[2022-07-02] MEDS: TORSEMIDE 20 MG TAB PO SCH ×2 (08:50→21:57)
[2022-07-02] MEDS: HEPARIN SODIUM,PORCINE/PF 5,000 UNIT/0.5 ML SYRINGE SQ SCH ×2 (08:50→21:56)
[2022-07-02] MEDS: PREGABALIN 75 MG CAP PO SCH ×2 (08:50→21:57)
--- NOTE | 2022-07-02 10:49 | P.PN ---
Subjective This is a pleasant 56 years old male with multiple medical problems presents with respiratory distress and acute hypoxic respiratory failure secondary to CHF Patient is kept on at the Lasix 40 mg 3 times a day with fluid restriction, His oxygen requirement trending down to 8 L/m today. Creatinine is stable at 1.4. Patient patient is being monitored closely by construction equipment mechanic, rn faculty and rn faculty 06/30/2022 Patient breathing slightly and gradually improving, today his oxygen requirement down to 7 L/m,he is sitting in his chair with no new complaint Creatinine went up from baseline 1.3-1.5 up to 1.8. IV Lasix 40 mg 3 times a day was stopped and switched to oral torsemide. Also dose of lisinopril 20 mg lower to 10 mg daily. We will keep monitoring oxygen, blood pressure, creatinine and input and output. 07/01/2022 Patient breathing is improving every day and gradually, his oxygen requirements downtown for later permanent this morning. No new complaints. Vitas looks stable Creatinine slightly down to 1.7. Patient remains off Lasix and he is on torsemide, lisinopril 10 mg and metoprolol 50 mg Patient wants to find a new PCP 07/02/2022 Patient breathing his improvement and his oxygen requirement down to 2 L/m, saturating 91% Last night blood pressure was borderline and received 1 dose of midodrine. Reliability Specialist the case and recommended to continue with lisinopril with holding parameters and torsemide. Repeat creatinine from today is pending Continue to follow blood pressure closely as well as oxygen saturation. Objective - Vital Signs Vital signs: Vital Signs Temp 97.6 F 07/02/22 08:00 Pulse 68 07/02/22 08:23 Resp 20 07/02/22 08:00 BP 117/58 07/02/22 08:00 Pulse Ox 91 L 07/02/22 08:09 FiO2 Intake & Output 07/01/22 07/02/22 07/02/22 18:59 06:59 18:59 Intake Total 236 1063 236 Output Total 450 1275 Balance -214 -212 236 Intake: Oral 236 1063 236 Output: Urine 450 1275 Stool 0 Other: Voiding Method Urinal - Exam -GENERAL: The patient is alert and oriented x3, not in any acute distress. Morbidly obese HEENT: Pupils are round and equally reacting to light. EOMI. No scleral icterus. No conjunctival pallor. Normocephalic, atraumatic. No pharyngeal erythema. No thyromegaly. CARDIOVASCULAR: S1 and S2 present. No murmurs, rubs, or gallops. -PULMONARY: Chest is clear to auscultation, no wheezing.bilateral basal crackles. ABDOMEN: Soft, nontender, nondistended, normoactive bowel sounds. No palpable organomegaly. MUSCULOSKELETAL: No joint swelling or deformity. -EXTREMITIES: No cyanosis, clubbing, bilateral pitting edema of the legs NEUROLOGICAL: Gross neurological examination did not reveal any focal deficits. SKIN: No rashes. no petechiae. - Labs CBC & Chem 7: 06/28/22 06:22 07/01/22 09:24 Labs: Abnormal Lab Results - Last 24 Hours (Table) 07/01/22 07/01/22 07/01/22 Range/Units 11: 16:43 20:16 POC Glucose (mg/dL) 200 H 148 H 143 H (70-110) mg/dL 07/02/22 07/02/22 Range/Units 05:46 06:55 POC Glucose (mg/dL) 147 H 138 H (70-110) mg/dL Assessment and Plan Assessment: Acute diastolic CHF Acute on chronic hypoxic respiratory failure Morbid obesity with possible obstructive sleep apnea and obesity hypoventilation syndrome COPD with no acute exacerbation Kidney injury mostly cardiorenal syndrome Plan: discontinue IV Lasix and continue with torsemide Continue with lisinopril half the dose to 20 mg down to 10 mg patient also on metoprolol 50 mg. Input output and creatinine Pulmonary cardiology and nephrology consult Labs and medication were reviewed.. Continue same treatment. Continue with symptomatic treatment. Resume home medication. Monitor labs and vitals. DVT and GI prophylaxis. Further recommendations as per clinical course of the patient DVT prophylaxis: Subcutaneous heparin GI Prophylaxis: Ppi PT/OT: Pending Prognosis is guarded
[2022-07-02 11:16] LABS: Glucose,Whole Blood 224 mg/dL (70-110)
[2022-07-02 12:15] LABS: African American GFR (CKD) 42 (>60 ml/min/1.73 sqM); Anion Gap 7 mmol/L; Blood Urea Nitrogen 61 mg/dL (9-20); Calcium 8.7 mg/dL (8.4-10.2); Carbon Dioxide 36 mmol/L (22-30); Chloride 94 mmol/L (98-107); Glucose 171 mg/dL (74-99); Non-African American GFR(CKD) 36 (>60 ml/min/1.73 sqM); Potassium 3.7 mmol/L (3.5-5.1); Sodium 137 mmol/L (137-145)
--- NOTE | 2022-07-02 13:51 | P.PN ---
Subjective HISTORY OF PRESENT ILLNESS: This is a 56-year-old male who is admitted to the hospital secondary to congestive heart failure. Patient examined this morning at the bedside. Patient denies chest pain or pressure. He continues to report shortness of breath. He remains on IV Lasix. He reports improvement in his lower extremity edema. Vital signs are stable. 06/27/2022 Patient examined this morning at the bedside. Patient denies chest pain or pressure. He reports improvement in his shortness of breath. Patient remains on IV Lasix. BUN 32. Creatinine 1.36. Carbon dioxide 42. Patient does not have accurate intake and output documented. Patient remains on 15 L high flow nasal cannula. 2-D echo completed revealing ejection fraction 50-55% with mild mitral regurgitation. 06/28/2022 Patient examined this morning. Patient is sitting up in the chair. He denies chest pain or pressure. He reports improvement in his shortness of breath. He remains on IV Lasix. Fluid balance over the last 24 hours is +380 mL. Creatinine today is 1.5, up from 1.36 yesterday. Patient remains on 11L NC. 06/30/2022 Patient examined this morning at the bedside. Patient denies chest pain or pressure. He reports improvement in his breathing. Patient is currently on 5 L nasal cannula. He remains on IV Lasix. Kidney function from this morning is currently pending. Fluid balance over the last 24 hours is -200 mL. 07/01 Patient seen and examined. Patient transitioned over to oral torsemide. No chest pain or pressure. States his lower extremity edema continues to improve. His had good urine output. Cr 1.77 today 07/02 Patient seen and examined. Patient admits he is feeling better and his lower extremity swelling has significantly improved. Oxygen requirements are down to 2 L nasal cannula. Denies any chest pain or pressure. He has been on torsemide 20 mg twice a day with creatinine mildly increased up to 1.9. Blood pressure is borderline in the 90s to 100s. PHYSICAL EXAM: VITAL SIGNS: Reviewed. GENERAL: Well-developed in no acute distress. NECK: Supple. No JVD or thyromegaly LUNGS: Respirations even and unlabored. Lungs essentially clear to auscultation bilaterally, diminished. HEART: Regular rate and rhythm. S1 and S2 heard. EXTREMITIES: Normal range of motion. No clubbing or cyanosis. Peripheral pul ses intact. 1-2+ bilateral LE, improved. ASSESSMENT: Shortness of breath Acute on chronic heart failure with preserved ejection fraction Acute hypoxic respiratory failure requiring supplemental oxygen History of CVA in 2019 Diabetes Hypertension Normal coronary arteries, per cardiac catheterization in 2019 Hyperkalemia, resolved Acute kidney injury PLAN: Continue oral torsemide Daily weights, accurate I&O, and monitoring of kidney function Continue additional cardiac medications Wean oxygen as tolerated. Further recommendations pending patient's course Objective - Vital Signs Vital signs: Vital Signs Temp 98.2 F 07/02/22 13:15 Pulse 63 07/02/22 13:15 Resp 20 07/02/22 13:15 BP 100/59 07/02/22 13:15 Pulse Ox 93 L 07/02/22 13:15 FiO2 Intake & Output 07/01/22 07/02/22 07/02/22 18:59 06:59 18:59 Intake Total 236 1063 236 Output Total 450 1275 Balance -214 -212 236 Intake: Oral 236 1063 236 Output: Urine 450 1275 Stool 0 Other: Voiding Method Urinal - Labs CBC & Chem 7: 06/28/22 06:22 07/02/22 11:46 Labs: Abnormal Lab Results - Last 24 Hours (Table) 07/01/22 07/01/22 07/02/22 Range/Units 16:43 20:16 05:46 Chloride (98-107) mmol/L Carbon Dioxide (22-30) mmol/L BUN (9-20) mg/dL Creatinine (0.66-1.25) mg/dL Glucose (74-99) mg/dL POC Glucose (mg/dL) 148 H 143 H 147 H (70-110) mg/dL 07/02/22 07/02/22 07/02/22 Range/Units 06:55 11:14 11:46 Chloride 94 L (98-107) mmol/L Carbon Dioxide 36 H (22-30) mmol/L BUN 61 H (9-20) mg/dL Creatinine 1.98 H (0.66-1.25) mg/dL Glucose 171 H (74-99) mg/dL POC Glucose (mg/dL) 138 H 224 H (70-110) mg/dL
--- NOTE | 2022-07-02 14:53 | P.PN ---
Subjective Progress Note Date: 07/02/22 This is a 56-year-old male patient, morbidly obese, who was recently admitted to [facility] for shortness of breath and he was discharged on oxygen at 3 L/m nasal cannula. The patient was admitted to our hospital because of worsening shortness of breath and increased in edema in lower extremities and abdominal distention and swelling. He was diagnosed having CHF with preserved LV function and the patient was given diuretics. During the course of his illness, creatinine went up to 1.5 and it subsequently improved and the most recent creatinine from today is at 1.36 and the patient is being given diuretics. The patient is in ex-smoker. He smoked marijuana and cigars in the past. He has not smoked tobacco on a regular basis. He is morbidly obese. He has a typical features of obstructive sleep apnea although this has not been pursued and has not been diagnosed and the patient not receiving any treatment. He has no angina. No palpitation. No significant cough or congestion. He has exertional dyspnea and his overall shortness of breath and progressively getting worse over time. He is currently on Lasix 40 mg IV every 8 hours. He is also on Diamox 250 mg by mouth twice a day. He is on oxygen at 15 L/m nasal cannula. Chest x-ray showed cardiomegaly and atelectatic change in lung bases and possibly small bilateral pleural effusions. Overall fluid balance over the past 24 hours has been -5.2 L. No previous history of DVT and pulmonary embolism. The patient states that he was given a ultrasound Doppler of the lower extremity at [facility] and the results were negative. The patient has no signs of any CO2 narcosis at this point in time. He is hemodynamically stable. On his blood work, his proBNP level was 1620, troponins were negative, his Covid 19 testing was negative and the patient has not received any vaccination for Covid 19. Liver function tests are essentially within normal limits. His total albumin is at 3.7 with a total protein of 6.8. UA is negative for any proteinuria. Echo of the heart shows a preserved LV function with an ejection fraction of 50-55%. No significant valvular abnormalities. Right sided cardiac structures were not accurately evaluated The patient is seen today 06/28/2022 in follow-up on the regular medical floor. He is currently sitting up in a chair at the bedside. Awake and alert in no a cute distress. Breathing a bit easier today compared to yesterday. currently maintaining O2 saturations in the 90s on 10 L high flow nasal cannula. He is afebrile. Hemodynamically stable. Computed tomography scan of the chest revealed patchy bibasilar linear consolidation with air bronchograms suggestive of atelectasis but cannot totally exclude a superimposed infection. Mildly enlarged sub-carinal lymph nodes likely reactive. Mild cardiomegaly. Blood cultures revealed no growth. White count 4.9. Hemoglobin 12.8. Platelet 169. Sodium 141. Potassium 4.1. Bicarb 36. Pro calcitonin 0.05. He is currently on Lasix 40 mg IV every 8 hours. He is currently in a -5.2 L balance. He is down 7 kilograms per weight. He is continued on Symbicort, Atrovent. He remains on Diamox. On 06/29/2022, the patient reports that he is improving. He is less short of breath. The oxygenation is also improved and she is currently on 8 L O2 nasal cannula and there is ongoing improvement in the patient's oxygenation. Meanwhile, the patient has no chest pain. Less congestion and wheezing on examination of the patient is still on diuretics and the patient is receiving Lasix 40 mg IV 3 times a day. On the blood work, the patient's BUN is at 30 with a creatinine of 1.5 and sodium levels of 139 and a potassium level is at 4.0. The fluid balance over the past 24 hours is -1.9 L. The CAT scan of the chest that was done on 06/25/2022 showed some patchy bibasilar consolidation with air bronchograms suggestive of atelectasis. Afebrile. Hemodynamically stable. No other new complaints. He remains on Lasix 40 mg IV every 8 hours. 06/30/2022, patient is being seen for a follow-up. Patient has no specific complaints. The patient is currently on 10 L of Oxymizer nasal cannula. His creatinine is on the right and the patient was being diuresed with IV Lasix 40 mg IV 3 times a day and this was stopped and the patient was switched to oral torsemide. He is being monitored accordingly. The patient has no other new complaints for now. 07/01/2022, the patient is currently on Demadex 20 mg by mouth twice a day. The patient is on oxygen 3 L/m nasal cannula. The patient is calm and comfortable. The patient is in a negative fluid balance of 2.7 L over the past 24 hours. He is doing well. No specific complaints. Echocardiogram showed a preserved LV function. His BUN is at 47 with a creatinine of 1.7 and a sodium level is at 138. 07/02/2022, the patient's is sitting up in a chair is currently down to 2 L of oxygen by nasal cannula. On Symbicort as maintenance an albumin of breath treatments 4 times a day. No new complaints. He is on Demadex 20 mg by mouth twice a day the patient's creatinine is up to 1.9 with a BUN of 61 and the sodium level is 137. LV function is within normal limits. He is increasing his mobility. He has trace edema lower extremity bilaterally. No altered mentation. No chest pain. Objective - Vital Signs Vital signs: Vital Signs Temp 98.2 F 07/02/22 13:15 Pulse 63 07/02/22 13:15 Resp 20 07/02/22 13:15 BP 100/59 07/02/22 13:15 Pulse Ox 93 L 07/02/22 13:15 FiO2 Intake & Output 07/01/22 07/02/22 07/02/22 18:59 06:59 18:59 Intake Total 236 1063 236 Output Total 450 1275 Balance -214 -212 236 Intake: Oral 236 1063 236 Output: Urine 450 1275 Stool 0 Other: Voiding Method Urinal - Exam Pleasant, 56-year-old male patient, morbidly obese, comfortable no acute dis tress, BMI of 55, currently on 3L O2 nasal cannula Head exam was generally normal. There was no scleral icterus or corneal arcus. Mucous membranes were moist. Neck was supple and without jugular venous distension, thyromegaly, or carotid bruits. Carotids were easily palpable bilaterally. There was no adenopathy. Mallampati class IV with significant crowding of the posterior oropharynx Lungs sounds are showing diminished breath sounds bilaterally in the lung bases along with some bibasilar crackles Heart sounds are distant, regular, no significant murmurs appreciated Abdomen is morbidly obese and organs cannot be accurately palpated. No direct tenderness abundance or guarding Extremities revealed +1 pitting edema, no cyanosis or clubbing Examination of the skin revealed no evidence of significant rashes, suspicious appearing nevi or other concerning lesions. Neurologically, the patient is awake and alert and the patient does not have any focal neurological deficit. Cranial nerves are essentially intact. - Labs CBC & Chem 7: 06/28/22 06:22 07/02/22 11:46 Labs: Abnormal Lab Results - Last 24 Hours (Table) 07/01/22 07/01/22 07/02/22 Range/Units 16:43 20:16 05:46 Chloride (98-107) mmol/L Carbon Dioxide (22-30) mmol/L BUN (9-20) mg/dL Creatinine (0.66-1.25) mg/dL Glucose (74-99) mg/dL POC Glucose (mg/dL) 148 H 143 H 147 H (70-110) mg/dL 07/02/22 07/02/22 07/02/22 Range/Units 06:55 11:14 11:46 Chloride 94 L (98-107) mmol/L Carbon Dioxide 36 H (22-30) mmol/L BUN 61 H (9-20) mg/dL Creatinine 1.98 H (0.66-1.25) mg/dL Glucose 171 H (74-99) mg/dL POC Glucose (mg/dL) 138 H 224 H (70-110) mg/dL Assessment and Plan Assessment: Acute hypoxic respiratory failure. The patient was initially hospitalized at [facility] for almost a week and following that he was discharged on oxygen to be readmitted to our hospital. The patient's oxygen patient is to worsen the patient is currently on a L of oxygen by nasal cannula. There is evidence of fluid overload and edema consistent with CHF/diastolic dysfunction/preserved LV function. The patient may have also an underlying right-sided heart failure due to his chronic hypoxic/hypercapnic respiratory failure and the patient has increased edema and third spacing. Possibility of underlying pneumonia and possibility of underlying atelectasis in the lung bases under good into the patient's shortness of breath and hypoxemia cannot be completely excluded. Computed tomography scan of the chest revealed patchy by basilar linear consolidation with air bronchograms suggested more so of atelectasis. Pro-calcitonin is 0.05.. The patient remains in a negative fluid balance. The patient remains on Demadex and Lasix IV was discontinued Chronic hypoxic respiratory failure Morbid obesity with a BMI 55 Ostructive sleep apnea with possibility of an underlying obesity hypoventilation syndrome on clinical grounds. COPD, maintain on Trelegy Ellipta on outpatient basis Hypertension Diabetes mellitus Chronic lower extremity edema Chronic stage III kidney disease versus an acute kidney injury History of CVA back in 2019 and the patient walks without a walker Normal coronaries based on the cardiac catheterization from 2019 Acute kidney injury on top of chronic kidney failure secondary to diuresis Plan: Clinically much improved The patient continues to diurese very well on Demadex, 20 mg by mouth twice a day Continue same treatment Patient is a negative fluid balance, and the weight is down Diuresing well Creatinine is up to 1.9. Will monitor renal function. I try to the morning Continue to titrate the FiO2 as tolerated, and the patient is being rapidly weaned off the FiO2, currently he is down to 3 L of O2 nasal cannula Increase mobility Continue Symbicort, Albuterol Use incentive spirometer aggressively We will continue to follow Outpatient sleep study
[2022-07-02 16:27] LABS: Glucose,Whole Blood 158 mg/dL (70-110)
[2022-07-02 20:53] LABS: Glucose,Whole Blood 179 mg/dL (70-110)
[2022-07-02] MEDS: AMITRIPTYLINE HCL 10 MG TAB PO SCH (21:56)
[2022-07-02] MEDS: traZODone HCL 50 MG TAB PO SCH (21:56)
[2022-07-03 06:34] LABS: Glucose,Whole Blood 160 mg/dL (70-110)
[2022-07-03] MEDS: IPRATROPIUM 0.5 MG/2.5 ML NEBU INHALATION SCH ×3 (07:31→15:45)
[2022-07-03] MEDS: SYMBICORT 80-4.5 MCG INHALER INHALATION SCH (07:31)
--- NOTE | 2022-07-03 09:52 | P.PN ---
Subjective This is a 56-year-old male with a past medical history of type 2 diabetes, chronic kidney disease, CVA, hypertension, COPD, short of sleep apnea, con gestive heart failure. He did see Dr. Singh back in 2019. He was admitted to the hospital secondary to congestive heart failure. Patient examined this morning at the bedside. Patient denies chest pain or pressure. He continues to report shortness of breath. He remains on IV Lasix. He reports improvement in his lower extremity edema. Vital signs are stable. 2-D echo completed revealing ejection fraction 50-55% with mild mitral regurgitation. 07/03/2022 Patient seen and examined at bedside, no acute distress. Patient admits he is feeling better and his lower extremity swelling has significantly improved. He is on PO Torsemide BID. Oxygen requirements are down to 2 L nasal cannula. D enies any chest pain or pressure. Blood pressures have improved 123/70. PHYSICAL EXAM: VITAL SIGNS: Reviewed. GENERAL: Well-developed in no acute distress. NECK: Supple. No JVD or thyromegaly LUNGS: Respirations even and unlabored. Lungs essentially clear to auscultation bilaterally, diminished. HEART: Regular rate and rhythm. S1 and S2 heard. EXTREMITIES: Normal range of motion. No clubbing or cyanosis. Peripheral pulses intact. 1-2+ bilateral LE, improved. ASSESSMENT: Shortness of breath Acute on chronic heart failure with preserved ejection fraction Acute hypoxic respiratory failure requiring supplemental oxygen History of CVA in 2019 Diabetes Hypertension Normal coronary arteries, per cardiac catheterization in 2019 Hyperkalemia, resolved Acute kidney injury PLAN: Continue oral torsemide Daily weights, accurate I&O, and monitoring of kidney function while inpatient Continue additional cardiac medications Wean oxygen as tolerated. From cardiology perspective, patient stable. No further changes or cardiac workup at this time. We will follow the patient as needed. Please reconsult if needed. Nurse practitioner note has been reviewed by physician. Signing provider agrees with the documented findings, assessment, and plan of care. Objective - Vital Signs Vital signs: Vital Signs Temp 98.2 F 07/03/22 07:50 Pulse 73 07/03/22 07:50 Resp 18 07/03/22 07:50 BP 123/70 07/03/22 07:50 Pulse Ox 94 L 07/03/22 07:50 FiO2 Intake & Output 07/02/22 07/03/22 07/03/22 18:59 06:59 18:59 Intake Total 1056 1860 Output Total 600 1700 Balance 456 160 Intake: Oral 1056 1860 Output: Urine 600 1700 Stool 0 Other: Voiding Method Urinal - Labs CBC & Chem 7: 06/28/22 06:22 07/02/22 11:46 Labs: Abnormal Lab Results - Last 24 Hours (Table) 07/02/22 07/02/22 07/02/22 Range/Units 11:14 11:46 16:25 Chloride 94 L (98-107) mmol/L Carbon Dioxide 36 H (22-30) mmol/L BUN 61 H (9-20) mg/dL Creatinine 1.98 H (0.66-1.25) mg/dL Glucose 171 H (74-99) mg/dL POC Glucose (mg/dL) 224 H 158 H (70-110) mg/dL 07/02/22 07/03/22 Range/Units 20:52 06:33 Chloride (98-107) mmol/L Carbon Dioxide (22-30) mmol/L BUN (9-20) mg/dL Creatinine (0.66-1.25) mg/dL Glucose (74-99) mg/dL POC Glucose (mg/dL) 179 H 160 H (70-110) mg/dL
[2022-07-03] MEDS: HEPARIN SODIUM,PORCINE/PF 5,000 UNIT/0.5 ML SYRINGE SQ SCH (10:45)
[2022-07-03] MEDS: PREGABALIN 75 MG CAP PO SCH (10:45)
[2022-07-03] MEDS: ASPIRIN 81 MG PO SCH (10:45)
[2022-07-03] MEDS: lisinopriL 10 MG TAB PO SCH (10:45)
[2022-07-03] MEDS: METOPROLOL SUCCINATE (ER) 50 MG TAB.ER.24H PO SCH (10:45)
[2022-07-03] MEDS: PANTOPRAZOLE 40 MG TABLET PO SCH (10:45)
[2022-07-03] MEDS: TORSEMIDE 20 MG TAB PO SCH (10:46)
[2022-07-03 11:40] LABS: Glucose,Whole Blood 200 mg/dL (70-110)
--- NOTE | 2022-07-03 12:39 | P.PN ---
Subjective Patient is seen for follow-up for acute kidney injury secondary to cardiorenal syndrome. He is currently being diuresed. Overall patient states he is feeling better. Serum creatinine at 1.9 on 07/02/2022 Objective - Vital Signs Vital signs: Vital Signs Temp 98.2 F 07/03/22 07:50 Pulse 70 07/03/22 11:25 Resp 18 07/03/22 07:50 BP 123/70 07/03/22 07:50 Pulse Ox 94 L 07/03/22 07:50 FiO2 Intake & Output 07/02/22 07/03/22 07/03/22 18:59 06:59 18:59 Intake Total 1056 1860 Output Total 600 1700 Balance 456 160 Intake: Oral 1056 1860 Output: Urine 600 1700 Stool 0 Other: Voiding Method Urinal - Exam Awake, comfortable, no acute distress Examination of the heart S1 and S2 Examination lungs bilateral breath sounds are heard Decreased breath sounds at the bases Abdomen is soft nontender Exertion lower extremity shows edema 2+ bilaterally with chronic skin changes [employer] exam grossly intact - Labs CBC & Chem 7: 06/28/22 06:22 07/02/22 11:46 Labs: Abnormal Lab Results - Last 24 Hours (Table) 07/02/22 07/02/22 07/03/22 Range/Units 16:25 20:52 06:33 POC Glucose (mg/dL) 158 H 179 H 160 H (70-110) mg/dL 07/03/22 Range/Units 11:38 POC Glucose (mg/dL) 200 H (70-110) mg/dL Assessment and Plan Assessment: 1. Acute kidney injury mostly prerenal secondary to cardiorenal syndrome. Renal function is stable with creatinine 1.8, 1.7 cm the last 2 days but today's labs are pending. No hydronephrosis noted on kidney ultrasound. UA benign. Continues to have good urine output on torsemide 20 mg twice a day 2. Volume overload. Improving with diuresis. 3. Hyperkalemia secondary to acute kidney injury and lisinopril. Stable potassium. 4. Diabetes mellitus. 5. Metabolic alkalosis from diuresis. Bicarb went as of yesterday was 34 on last pending today 6. Acute on chronic diastolic CHF. Plan: Continue current diuretics Repeat labs in a.m. Patient will need follow-up as outpatient.
[2022-07-03 14:44] VITALS: BP 108/75; PULSE 78; RESP 16; TEMP 97.8
--- NOTE | 2022-07-03 15:08 | P.PN ---
Subjective Progress Note Date: 07/03/22 This is a 56-year-old male patient, morbidly obese, who was recently admitted to [facility] for shortness of breath and he was discharged on oxygen at 3 L/m nasal cannula. The patient was admitted to our hospital because of worsening shortness of breath and increased in edema in lower extremities and abdominal distention and swelling. He was diagnosed having CHF with preserved LV function and the patient was given diuretics. During the course of his illness, creatinine went up to 1.5 and it subsequently improved and the most recent creatinine from today is at 1.36 and the patient is being given diuretics. The patient is in ex-smoker. He smoked marijuana and cigars in the past. He has not smoked tobacco on a regular basis. He is morbidly obese. He has a typical features of obstructive sleep apnea although this has not been pursued and has not been diagnosed and the patient not receiving any treatment. He has no angina. No palpitation. No significant cough or congestion. He has exertional dyspnea and his overall shortness of breath and progressively getting worse over time. He is currently on Lasix 40 mg IV every 8 hours. He is also on Diamox 250 mg by mouth twice a day. He is on oxygen at 15 L/m nasal cannula. Chest x-ray showed cardiomegaly and atelectatic change in lung bases and possibly small bilateral pleural effusions. Overall fluid balance over the past 24 hours has been -5.2 L. No previous history of DVT and pulmonary embolism. The patient states that he was given a ultrasound Doppler of the lower extremity at [facility] and the results were negative. The patient has no signs of any CO2 narcosis at this point in time. He is hemodynamically stable. On his blood work, his proBNP level was 1620, troponins were negative, his Covid 19 testing was negative and the patient has not received any vaccination for Covid 19. Liver function tests are essentially within normal limits. His total albumin is at 3.7 with a total protein of 6.8. UA is negative for any proteinuria. Echo of the heart shows a preserved LV function with an ejection fraction of 50-55%. No significant valvular abnormalities. Right sided cardiac structures were not accurately evaluated The patient is seen today 06/28/2022 in follow-up on the regular medical floor. He is currently sitting up in a chair at the bedside. Awake and alert in no a cute distress. Breathing a bit easier today compared to yesterday. currently maintaining O2 saturations in the 90s on 10 L high flow nasal cannula. He is afebrile. Hemodynamically stable. Computed tomography scan of the chest revealed patchy bibasilar linear consolidation with air bronchograms suggestive of atelectasis but cannot totally exclude a superimposed infection. Mildly enlarged sub-carinal lymph nodes likely reactive. Mild cardiomegaly. Blood cultures revealed no growth. White count 4.9. Hemoglobin 12.8. Platelet 169. Sodium 141. Potassium 4.1. Bicarb 36. Pro calcitonin 0.05. He is currently on Lasix 40 mg IV every 8 hours. He is currently in a -5.2 L balance. He is down 7 kilograms per weight. He is continued on Symbicort, Atrovent. He remains on Diamox. On 06/29/2022, the patient reports that he is improving. He is less short of breath. The oxygenation is also improved and she is currently on 8 L O2 nasal cannula and there is ongoing improvement in the patient's oxygenation. Meanwhile, the patient has no chest pain. Less congestion and wheezing on examination of the patient is still on diuretics and the patient is receiving Lasix 40 mg IV 3 times a day. On the blood work, the patient's BUN is at 30 with a creatinine of 1.5 and sodium levels of 139 and a potassium level is at 4.0. The fluid balance over the past 24 hours is -1.9 L. The CAT scan of the chest that was done on 06/25/2022 showed some patchy bibasilar consolidation with air bronchograms suggestive of atelectasis. Afebrile. Hemodynamically stable. No other new complaints. He remains on Lasix 40 mg IV every 8 hours. 06/30/2022, patient is being seen for a follow-up. Patient has no specific complaints. The patient is currently on 10 L of Oxymizer nasal cannula. His creatinine is on the right and the patient was being diuresed with IV Lasix 40 mg IV 3 times a day and this was stopped and the patient was switched to oral torsemide. He is being monitored accordingly. The patient has no other new complaints for now. 07/01/2022, the patient is currently on Demadex 20 mg by mouth twice a day. The patient is on oxygen 3 L/m nasal cannula. The patient is calm and comfortable. The patient is in a negative fluid balance of 2.7 L over the past 24 hours. He is doing well. No specific complaints. Echocardiogram showed a preserved LV function. His BUN is at 47 with a creatinine of 1.7 and a sodium level is at 138. 07/02/2022, the patient's is sitting up in a chair is currently down to 2 L of oxygen by nasal cannula. On Symbicort as maintenance an albumin of breath treatments 4 times a day. No new complaints. He is on Demadex 20 mg by mouth twice a day the patient's creatinine is up to 1.9 with a BUN of 61 and the sodium level is 137. LV function is within normal limits. He is increasing his mobility. He has trace edema lower extremity bilaterally. No altered mentation. No chest pain. The patient is seen today 07/03/2022 in follow-up on the regular medical floor. He is currently sitting up at the bedside. Awake and alert in no acute distress. Feeling nearly back to his baseline. He is maintaining O2 saturations in the 90s on 2 L/m per nasal cannula. He is afebrile. Hemodynamically stable. Blood cultures reveal no growth. Blood glucose 160. Continued on Symbicort, albuterol. On oral diuretics. Objective - Vital Signs Vital signs: Vital Signs Temp 97.8 F 07/03/22 14:00 Pulse 78 07/03/22 14:00 Resp 16 07/03/22 14:00 BP 108/75 07/03/22 14:00 Pulse Ox 91 L 07/03/22 14:00 FiO2 Intake & Output 07/02/22 07/03/22 07/03/22 18:59 06:59 18:59 Intake Total 1056 1860 Output Total 600 1700 Balance 456 160 Intake: Oral 1056 1860 Output: Urine 600 1700 Stool 0 Other: Voiding Method Urinal - Exam Pleasant, 56-year-old male patient, morbidly obese, comfortable no acute distress, BMI of 50, currently on 2 L O2 nasal cannula Head exam was generally normal. There was no scleral icterus or corneal arcus. Mucous membranes were moist. Neck was supple and without jugular venous distension, thyromegaly, or carotid bruits. Carotids were easily palpable bilaterally. There was no adenopathy. Mallampati class IV with significant crowding of the posterior oropharynx Lungs sounds are showing diminished breath sounds bilaterally in the lung bases along with some bibasilar crackles Heart sounds are distant, regular, no significant murmurs appreciated Abdomen is morbidly obese and organs cannot be accurately palpated. No direct tenderness abundance or guarding Extremities revealed +1 pitting edema, no cyanosis or clubbing Examination of the skin revealed no evidence of significant rashes, suspicious appearing nevi or other concerning lesions. Neurologically, the patient is awake and alert and the patient does not have any focal neurological deficit. Cranial nerves are essentially intact. - Labs CBC & Chem 7: 06/28/22 06:22 07/02/22 11:46 Labs: Abnormal Lab Results - Last 24 Hours (Table) 07/02/22 07/02/22 07/03/22 Range/Units 16:25 20:52 06:33 POC Glucose (mg/dL) 158 H 179 H 160 H (70-110) mg/dL 07/03/22 Range/Units 11:38 POC Glucose (mg/dL) 200 H (70-110) mg/dL Assessment and Plan Assessment: Acute hypoxic respiratory failure. The patient was initially hospitalized at [facility] for almost a week and following that he was discharged on oxygen to be readmitted to our hospital. The patient's oxygen is now improved down to 2 L of oxygen by nasal cannula. There is evidence of fluid overload and edema consistent with CHF/diastolic dysfunction/preserved LV function. The patient may have also an underlying right-sided heart failure due to his chronic hypoxic/hypercapnic respiratory failure and the patient has increased edema and third spacing. Possibility of underlying pneumonia and possibility of underlying atelectasis in the lung bases under good into the patient's shortness of breath and hypoxemia cannot be completely excluded. Computed tomography scan of the chest revealed patchy by basilar linear consolidation with air bronchograms suggested more so of atelectasis. Pro-calcitonin is 0.05. Improving him back to his baseline. Currently on oral diuretics. Chronic hypoxic respiratory failure Morbid obesity with a BMI 50 Ostructive sleep apnea with possibility of an underlying obesity hypoventilation syndrome on clinical grounds. COPD, maintain on Trelegy Ellipta on outpatient basis Hypertension Diabetes mellitus Chronic lower extremity edema Chronic stage III kidney disease versus an acute kidney injury History of CVA back in 2018 and the patient walks without a walker Normal coronaries based on the cardiac catheterization from 2019 Plan: The patient was seen and evaluated Medications and labs reviewed Down to his maintenance oxygen of 2 L Continue Symbicort, Albuterol Discharge from the pulmonary standpoint Follow up in our office in 1 week. I have personally seen and examined the patient, performed the documentation and the assessment and plan as written. Number of minutes spent on the visit: 10.
--- NOTE | 2022-07-03 22:22 | P.DS ---
Providers Date of admission: 06/24/22 08:54 Attending physician: Lucille Solo Consults: 06/24/22 08:54 Consult Physician Routine Consulting Provider: [facility] Consult Reason/Comments: Acute pulmonary edema Do you want consulting provider notified?: Yes 06/24/22 12:56 Consult Physician Routine Consulting Provider: Natalio Mueller Consult Reason/Comments: critical high potassium, poor kidney function Do you want consulting provider notified?: Yes 06/27/22 12:03 Consult Physician Routine Consulting Provider: Salazar Watson Consult Reason/Comments: acute pulmonary edema Do you want consulting provider notified?: Yes Primary care physician: Zeferino Hamilton Hospital Course: Diagnoses: Acute diastolic CHF Acute on chronic hypoxic respiratory failure Morbid obesity with possible obstructive sleep apnea and obesity hypoventilation syndrome COPD with no acute exacerbation Acute Kidney injury mostly cardiorenal syndrome Hospital course: This is a pleasant 56 years old male with multiple medical problems presents with respiratory distress and acute hypoxic respiratory failure secondary to CHF Patient has been evaluated by several machine attendant, business risk consultant and armoring machine operator. Treated with IV Lasix. Ejection fraction was 50-55%, renal ultrasound showing no hydronephrosis. Because of kidney function impairment his Lasix was switched to torsemide , he tolerated that well and his oxygen requirements significantly improved down to 2 L/m on the day of discharge. Patient also has oxygen at home as confirmed to me. Discharge she denies any other symptoms, no chest pain, no GI or urinary or neurological symptoms. Gait is normal. Patient is eager to be discharged home today. Patient was cleared for discharge by business risk consultant, armoring machine operator and machine attendant. Patient was informed to oblique metformin because of worsening renal function, also was instructed in details about monitoring his sugar as an outpatient. He verbalized understanding and acceptance Problems and management plan were discussed with the patient and he verbalized understanding and acceptance. Cystoscopy at bedside upon patient request and she agrees with the management plan with him. Patient was found stable and can be discharged home in guarded prognosis however he needs follow-up as an outpatient. Patient was instructed to follow up with PCP Dr. Ward within one week and patient agrees with the appointments made for him tomorrow on 07/04 and states he will follow-up. Also patient was instructed to follow up with Dr. Watson on the 07/24/22 and he agrees. To follow up with machine attendant Dr. Mueller in 1-2 weeks and with business risk consultant Dr. Singh in 10 days and he agrees to call and make an appointment Physical exam Gen: patient is a AAOx3, no distress CVS: S1-S2, RRR, no murmur Lungs: B/L CTA, no wheezing Abdomen: soft, no distention, no tenderness, positive bowel sounds Extremity: no leg edema or induration get up and go test is normal Time spent more than 35 minutes Plan - Discharge Summary Discharge Rx Participant: Yes New Discharge Prescriptions: New Torsemide [Demadex] 20 mg PO BID #60 tab Metoprolol Succinate (ER) [Toprol XL] 50 mg PO DAILY #30 tab lisinopriL [Zestril] 10 mg PO DAILY #30 tab Continue Aspirin [Adult Low Dose Aspirin EC] 81 mg PO DAILY Pioglitazone [Actos] 30 mg PO DAILY Pregabalin [Lyrica] 150 mg PO BID Fluticasone/Umeclidin/Vilanter [Trelegy Ellipta 100-62.5-25] 1 puff INHALATION RT-DAILY traZODone HCL [Desyrel] 25 - 50 mg PO HS Amitriptyline HCl [Elavil] 10 mg PO HS Albuterol Inhaler [Ventolin Hfa Inhaler] 2 puff INHALATION RT-QID PRN PRN Reason: Shortness Of Breath Discontinued metFORMIN HCL [Glucophage] 1,000 mg PO BID-W/MEALS amLODIPine [Norvasc] 10 mg PO DAILY lisinopriL [Zestril] 20 mg PO DAILY Metoprolol Succinate (ER) [Toprol Xl] 25 mg PO DAILY Furosemide [Lasix] 20 mg PO DAILY Discharge Medication List Aspirin [Adult Low Dose Aspirin EC] 81 mg PO DAILY 12/10/18 [History] Pioglitazone [Actos] 30 mg PO DAILY 12/10/18 [History] Albuterol Inhaler [Ventolin Hfa Inhaler] 2 puff INHALATION RT-QID PRN 06/24/22 [History] Amitriptyline HCl [Elavil] 10 mg PO HS 06/24/22 [History] Fluticasone/Umeclidin/Vilanter [Trelegy Ellipta 100-62.5-25] 1 puff INHALATION RT-DAILY 06/24/22 [History] Pregabalin [Lyrica] 150 mg PO BID 06/24/22 [History] traZODone HCL [Desyrel] 25 - 50 mg PO HS 06/24/22 [History] Metoprolol Succinate (ER) [Toprol XL] 50 mg PO DAILY #30 tab 07/03/22 [Rx] Torsemide [Demadex] 20 mg PO BID #60 tab 07/03/22 [Rx] lisinopriL [Zestril] 10 mg PO DAILY #30 tab 07/03/22 [Rx] Follow up Appointment(s)/Referral(s): Vera Singh MD [STAFF PHYSICIAN] - 10 Days (office will call with appointment time) Alfonso Mcgarry MD [Primary Care Provider] - 07/04/22 1:00 pm [facility], [NON-STAFF] - As Needed ([facility] care will follow you IF you change primary physicians. They can not follow you under . ) Natalio Mueller DO [STAFF PHYSICIAN] - 1 Week (office will call with appointment time) Salazar Watson MD [STAFF PHYSICIAN] - 07/24/22 8:30 am Patient Instructions/Handouts: Pulmonary Edema (DC) Activity/Diet/Wound Care/Special Instructions: heart healthy diet , low carbohydrate diet 1800 k jania per day activity is restricted till you see your doctor we recommend to check your glucose four times per day , before each meal and at bed time, keep the results in a log book and bring it to your doctor on your appointment date if your glucose is less than 70 or more than 400 then call 911 and come to emergency room (hold metformin on discharge for worsening kidney function) Discharge Disposition: HOME WITH HOME HEALTH SERVICES
== END 2022-07-03 15:39 | disposition home health service (06) | DRG 291 ==
LOC: EC 07:29 → 3SCARD 08:54 → 4SSUR 09:14
PROVIDERS: ADMIT Hospitalist; ATTEND Hospitalist
PROC: 5A0945A Assistance with Respiratory Ventilation, 24-96 Consecutive Hours, High Flow/Velocity Cannula (ICD-10-PCS; principal; 2022-06-27)
DX: I13.0 Hypertensive heart and chronic kidney disease with heart failure and stage 1 through stage 4 chronic kidney disease, or unspecified chronic kidney disease (principal); I50.33 Acute on chronic diastolic (congestive) heart failure; J96.21 Acute and chronic respiratory failure with hypoxia; E87.3 Alkalosis; N17.9 Acute kidney failure, unspecified; Z68.43 Body mass index [BMI] 50.0-59.9, adult; I47.20 Ventricular tachycardia, unspecified; E66.2 Morbid (severe) obesity with alveolar hypoventilation; J96.12 Chronic respiratory failure with hypercapnia; J98.11 Atelectasis; T50.2X5A Adverse effect of carbonic-anhydrase inhibitors, benzothiadiazides and other diuretics, initial encounter; J44.9 Chronic obstructive pulmonary disease, unspecified; Z20.822 Contact with and (suspected) exposure to COVID-19; E87.5 Hyperkalemia; E11.22 Type 2 diabetes mellitus with diabetic chronic kidney disease; N18.9 Chronic kidney disease, unspecified; Z28.310 Unvaccinated for COVID-19; Z88.8 Allergy status to other drugs, medicaments and biological substances; I69.398 Other sequelae of cerebral infarction; Z79.84 Long term (current) use of oral hypoglycemic drugs; Z87.891 Personal history of nicotine dependence; Z79.899 Other long term (current) drug therapy; Z79.82 Long term (current) use of aspirin; Z71.3 Dietary counseling and surveillance; Z99.81 Dependence on supplemental oxygen
CPT/HCPCS: 36415; 36600; 71045; 71046; 71250; 76770; 80048; 80053; 81003; 82805; 83605; 83735; 83880; 84132; 84145; 84484; 85025; 85610; 85730; 87040; 93005; 93306; 94640; 94760; 96374; 96375; 99291